=== PATIENT | female | born 1955 | race Caucasian/White ===

== ENCOUNTER → 2019-04-28 00:01 | Outpatient (BNVA) | payer MEDICARE, SELFPAY | PROVIDERS: Family Provider Nurse Practitioner Family; PCP Nurse Practitioner Family; Visit Provider Nurse Practitioner Family | DX: R05 Cough (principal); J40 Bronchitis, not specified as acute or chronic | CPT/HCPCS: 71046 ==

== ENCOUNTER 2019-12-28 09:25 | Outpatient (CLI) | payer MEDICARE, SELFPAY ==
--- NOTE | 2019-12-28 09:35 | XR_ITS ---
WS: [id number] CHEST 2 VIEWS HISTORY: pain on inspiration; fall on left side ribs; pain on left COMPARISON: 04/28/2019 Lungs: Minimal atelectasis at the lung bases. Lungs are hyperinflated. No pneumothorax. Cardiac size: Normal. Mediastinum/Aorta: Mild atherosclerosis aorta. Bones: Normal. XR/XR chest 2V* [id number] IMPRESSION: 1. Chronic emphysema with minimal bibasilar atelectasis. 2. No pneumothorax.
--- NOTE | 2019-12-28 09:35 | XR_ITS ---
WS: [id number] LEFT RIBS, MULTIPLE VIEWS HISTORY: left sided rib pain anterior and posteriorly COMPARISON: None available. Ribs: Suspect nondisplaced fracture involving the anterior lateral LEFT 10th rib. Lungs and mediastinum: Small amount of atelectasis at the LEFT lung base. Moderate degenerative changes at the LEFT glenohumeral joint. XR/XR ribs LT 2V* [id number] IMPRESSION: Nondisplaced LEFT anterolateral 10th rib fracture.
== END 2019-12-28 09:26 | disposition home or self-care (01) ==
PROVIDERS: Family Provider Nurse Practitioner Family; PCP Nurse Practitioner Family; Visit Provider Nurse Practitioner Family
DX: R07.81 Pleurodynia (principal); R07.1 Chest pain on breathing; S22.32XA Fracture of one rib, left side, initial encounter for closed fracture; W19.XXXA Unspecified fall, initial encounter
CPT/HCPCS: 71046; 71100

== ENCOUNTER 2022-08-17 09:31 | Inpatient (IN) | payer MEDICARE, SELFPAY ==
[2022-08-17] VITALS (8 sets, daily range): BP systolic 119–149; BP diastolic 66–79; PULSE 68–100; RESP 14–18; TEMP 36.6–36.8; O2SAT 92–99; BMI 26.2
--- NOTE | 2022-08-17 09:37 | XR_ITS ---
WS: [id number] XR hip RT 2-3V wo/w pel* [id number] REASON FOR EXAM: pain FINDINGS: Severe narrowing of the superior aspect of the joint space, essentially [id number]. Extensive subch ondral sclerosis and cystic change in the subarticular acetabulum and femoral head. Large osteophytes of the acetabulum and femoral head and neck junction. No definite acute or subacute fracture identified. No soft tissue abnormality. XR/XR hip RT 2-3V wo/w pel* [id number] IMPRESSION: Severe osteoarthritis with no definite acute or subacute fracture identified.
--- NOTE | 2022-08-17 09:44 | CT_ITS ---
WS: [id number] CT LUMBAR SPINE, noncontrast. HISTORY: Lumbar pain with L4-5 radiculopathy of the right leg TECHNIQUE: Contiguous 2.0 mm axial imaging are performed. Sagittal and coronal reformats are submitte d and reviewed. All CT scans at [facility] use at least one of these dose optimization techni ques: automated exposure control; mA and/or kV adjustment per patient size (includes targeted exams w here dose is matched to clinical indication); or iterative reconstruction. IV contrast: None DLP: 724.32 mGy.cm COMPARISON: None available. Mild LEFT curvature lumbar spine. 2 mm retrolisthesis of L4. No fracture. L1-2: Mild asymmetric disc bulging to the LEFT. LEFT foraminal disc protrusion. There is mild encroac hment upon the LEFT lateral thecal sac and the subarticular recesses bilaterally due to disc disease. Mild facet arthritis. Mild central and RIGHT foraminal stenosis. Moderate LEFT foraminal stenosis. L2-3: Moderate diffuse annular disc bulging with ligamentum flavum and facet arthritis. LEFT foramina l disc protrusion. Mild central stenosis. Moderate bilateral subarticular recess stenosis, LEFT great er than RIGHT. More significant encroachment upon the traversing LEFT L3 nerve root. Mild bilateral f oraminal stenosis and facet arthritis. L3-4: Diffuse annular disc bulging and osteophytic ridging. Moderate facet joint arthritis and ligame ntum flavum arthritis. Moderate central, bilateral subarticular recess and very mild foraminal narrow ing. L4-5: Marked diffuse annular disc bulging. Additional central and LEFT foraminal disc protrusions. Si gnificant encroachment upon the traversing L5 nerve roots. Severe facet joint arthritis with ligament um flavum hypertrophy. Severe central, bilateral subarticular recess and mild foraminal stenosis. Ext ruded component of the disc extending inferior to the disc level. L5-S1: Marked annular disc bulging and osteophytic ridging. Small central disc protrusion. Severe shelby tral, bilateral subarticular recess and mild foraminal stenosis. There is significant encroachment up on the S1 nerve roots bilaterally. Severe facet joint arthritis. Prior cholecystectomy. Atherosclerosis aorta. Mild SI joint arthritis. Subcentimeter, too small to ch aracterize low-attenuation mass in the medial RIGHT kidney. Hounsfield units are low suggesting cyst. CT/CT lumbar spine wo con* [id number] IMPRESSION: 1. Multilevel areas of central, subarticular recess and foraminal stenosis. 2. Severe central, bilateral subarticular recess and mild foraminal stenosis a t L4-5. Central and LEFT foraminal disc protrusions contribute to the stenosis, greatest involving the traversing L5 nerve roots. Central disc is extruded inf erior to the disc level. 3. Severe central, bilateral subarticular recess and mild foraminal stenosis a t L5-S1. Significant encroachment upon the S1 nerve roots. 4. Moderate central and bilateral subarticular recess stenosis at L3-4. 5. Mild central stenosis at L2-3 with a LEFT foraminal disc protrusion. Modera te bilateral subarticular recess encroachment, LEFT greater than RIGHT with enc roachment upon the L3 nerve roots. 6. LEFT foraminal disc protrusion at L1-2. Moderate LEFT foraminal stenosis wi th mild central and RIGHT foraminal stenosis at L1-2. 7. Facet joint arthritis most significant from L3-4 to L5-S1. 8. Prior cholecystectomy.
--- NOTE | 2022-08-17 09:45 | W.ED.FALL ---
HPI - Fall General: Chief Complaint: Fall Stated Complaint: right hip pain Time Seen by Provider: 08/17/22 09:37 Source: patient Mode of arrival: ambulatory History of Present Illness: 66-year-old female who presents to the emergency room with complaints of back pain with right leg radicular symptoms. She fell 2 months ago has had back pain with pain radiating to her right hip and leg since then is progressively worsened to the point now where she cannot stand or walk adequately. No previous MRIs of the back no previous surgeries. She does report urinary incontinence but no fecal incontinence. She fell 2 months ago while making the bed she got her foot caught and fell sideways she cannot recall she landed on the left or right side she denies striking her head there is no loss of consciousness. MD complaint: fall Onset (ago): month(s) (2) Fall from: standing Place fall occurred: home Loss of consciousness: None Prolonged down time: no Context: tripped/slipped Location of injury: back Associated symptoms-after fall: Denies abdominal pain, chest pain, confusion, difficulty walking, headache(s), hematuria, lightheadedness, neck pain, numbness, short of breath, vertigo or weakness Review of Systems Const: Denies: fever(s), chills, body aches, change in appetite, fatigue or malaise ENMT: Denies: throat pain, ear or mastoid pain, nasal discharge or nasal congestion Card: Denies: chest pain or lightheadedness Resp: Denies: dyspnea, productive cough or non-productive cough GI: Denies: abdominal pain : Reports: urinary incontinence; Denies: flank pain, dysuria, urinary frequency, urinary urgency or hematuria Musc: Reports: back pain; Denies: neck pain Skin/Breast: Denies: rash or pruritus Neuro: Denies: headache(s), difficulty walking, vertigo or confusion PFSH ED PFSH: Medical History Adult onset hypothyroidism Degeneration of intervertebral disc of lumbosacral region Fibromyalgia Hyperlipemia Multiple sclerosis Stress incontinence Vitamin D deficiency Surgical History History of cholecystectomy History of tubal ligation Family History Other Cancer Diabetes Social History Smoking and tobacco status: current every day smoker cigarettes Packs smoked per day: 0.5 Years cigarettes smoked: 25 Second hand smoke exposure: No Alcohol intake: never Substance/Drug Use: never Lives independently: Yes Household members: spouse Marital status: service: No Current occupational status: retired and disabled Current gender identity: Female Physical Exam Const: GENERAL APPEARANCE: cooperative and comfortable ORIENTATION/CONSCIOUSNESS: Yes awake, Yes oriented to person, Yes oriented to place and Yes oriented to time HENMT: COMMON NORMALS: normocephalic, atraumatic and hearing grossly normal bilaterally HEAD & SCALP: normocephalic and atraumatic Resp: COMMON NORMALS: normal respiratory effort, No retractions, No use of accessory muscles and clear to auscultation bilaterally AUSCULTATION: clear to auscultation bilaterally Cardio: COMMON NORMALS: regular rate, regular rhythm and No murmurs present (Cardio) RATE: regular rate RHYTHM: regular rhythm GI: COMMON NORMALS: Soft to palpation and No hepatosplenomegaly present AUSCULTATION: Yes normoactive bowel sounds PALPATION: Yes Soft to palpation, No Tenderness to palpation present (GI), No Guarding due to palpation present (GI) and Yes No hepatosplenomegaly present Back/Pelvis: OTHER: Straight leg raising is negative. Deep tendon reflex patellar tendon +104 on the right +2/4 on the left absent at the Achilles tendon on the right +104 on the left dorsum plantar flex strength in the right foot 5 of 5 Extremity: COMMON NORMALS: normal to inspection, capillary refill normal, no clubbing, cyanosis or edema, no calf tenderness and no pedal edema OTHER: Deep tendon reflexes plus Neuro: SENSORIUM/ORIENTATION: Yes oriented to person, Yes oriented to place and Yes oriented to time OTHER: Deep tendon reflexes +2/4 on the left 1/4 at the patellar tendon absent at the right Achilles tendon +1/4 at the left Achilles tendon straight leg raising negative sensation normal. Skin: COMMON NORMALS: no rashes or lesions noted GENERAL SKIN EXAM: no rashes or lesions noted Course Vital Signs: Vital signs: Vital Signs Temperature 98.3 F 08/17/22 09:34 Pulse Rate 80 08/17/22 13:07 Respiratory Rate 14 08/17/22 13:07 Blood Pressure 143/79 08/17/22 13:07 Pulse Oximetry 96 08/17/22 13:07 Oxygen Delivery Me thod Room Air 08/17/22 13:07 MDM - Fall Medical Decision Making Intractable back pain with right leg radiculopathy with loss of function in the right leg as well as loss of reflexes on the right compared to the left. Patient's pain improved with treatment but she still not able to walk safely. MRI shows L4-5 L5-S1 new annular tears with some impingement. Discussed with Dr. Sosa as well as at Dr. Angeles. At this point we will admit her for intractable back pain and consult Dr. Sosa tomorrow if she is not improving. He agreed he would see here if pain control is not adequate. Discussed Dr. Angeles orders written Medical Records I reviewed the patient's medical records. Lab Data I reviewed the patient's lab results. Radiology Impressions Hip/Pelvis X-Ray 08/17/22 09:37 IMPRESSION: Severe osteoarthritis with no definite acute or subacute fracture identified. Lumbar Spine CT 08/17/22 09:44 IMPRESSION: 1. Multilevel areas of central, subarticular recess and foraminal stenosis. 2. Severe central, bilateral subarticular recess and mild foraminal stenosis at L4-5. Central and LEFT foraminal disc protrusions contribute to the stenosis, greatest involving the traversing L5 nerve roots. Central disc is extruded inferior to the disc level. 3. Severe central, bilateral subarticular recess and mild foraminal stenosis at L5-S1. Significant encroachment upon the S1 nerve roots. 4. Moderate central and bilateral subarticular recess stenosis at L3-4. 5. Mild central stenosis at L2-3 with a LEFT foraminal disc protrusion. Moderate bilateral subarticular recess encroachment, LEFT greater than RIGHT with encroachment upon the L3 nerve roots. 6. LEFT foraminal disc protrusion at L1-2. Moderate LEFT foraminal stenosis with mild central and RIGHT foraminal stenosis at L1-2. 7. Facet joint arthritis most significant from L3-4 to L5-S1. 8. Prior cholecystectomy. Lumbar Spine MRI 08/17/22 11:26 IMPRESSION: 1. Mild lumbar curve. No acute compression. 2. Disc bulging worse L4-L5 and L5-S1 tiny annular fissures. Minimal caudal herniation of the L4-L5 disc. 3. Moderate to severe central canal stenosis L4-L5 due to disc bulging with facet arthropathy ligamentum flavum hypertrophy. Impingement traversing L5 nerve roots bilaterally. Mild to moderate LEFT L4-L5 foraminal narrowing. 4. Moderate central canal stenosis L5-S1 with impingement on traversing S1 nerve roots bilaterally. 5. Mild to moderate central canal stenosis L2-L3 and L3-L4 with narrowing of the subarticular recess bilaterally. 6. Moderate facet arthropathy L2-L3, L3-L4, L4-L5, and L5-S1. 7. Mild LEFT L1-L2, mild to moderate LEFT L2-L3 and mild RIGHT L3-L4 foraminal narrowing. Discharge Plan Discharge Patient Disposition: Admitted As Inpatient Clinical Impression: Back pain with right-sided radiculopathy Condition: Stable Coding Level of Care Code ED [employer] for [employer] [place]
[2022-08-17] MEDS: dexamethasone 10 mg/mL INJ IVP (10:07)
[2022-08-17] MEDS: orphenadrine 30 mg/mL Inj 2 mL 60 MG IVP (10:10)
[2022-08-17] MEDS: ketorolac 30 mg/mL INJ 15 MG IVP (10:10)
[2022-08-17] MEDS: morphine 4 mg/mL SDV 1 mL IVP (10:11)
--- NOTE | 2022-08-17 11:26 | MR_ITS ---
WS: [id number] MRI LUMBAR SPINE NONCONTRAST TECHNIQUE: Sagittal T1, T2 and STIR imaging. Axial T1 and T2 imaging. CLINICAL INFORMATION: loss of fnction R leg COMPARISON: MRI [address] earlier today FINDINGS: Mild lumbar curve. No acute compression. Tiny annular fissures L4-L5 and L5-S1. Slight anterolisthesi s L2 on L3 and L3 on L4. L1-L2: Mild annular bulging. Slight effacement of ventral thecal sac. Mild facet arthropathy. Mild LE FT foraminal narrowing. L2-L3: Slight anterolisthesis. Mild to moderate central canal stenosis with impingement on the subart icular recess bilaterally. Moderate facet arthropathy. Mild LEFT foraminal narrowing. Small LEFT fora carine protrusion. L3-L4: Slight anterolisthesis L3 on L4. Moderate central canal stenosis with slight impingement on tr aversing L4 nerve roots bilaterally. Moderate facet arthropathy. Tiny RIGHT proximal foraminal protru cheri with mild RIGHT foraminal narrowing. L4-L5: Disc bulging in combination with facet arthropathy results in moderate to severe central canal stenosis. Impingement on the traversing L5 nerve roots bilaterally. Small annular fissure at this le fer. Mild to moderate LEFT and no significant RIGHT foraminal narrowing L5-S1: Mild disc bulging with moderate central canal stenosis. Impingement traversing S1 nerve roots bilaterally. Small annular fissure. Moderate facet arthropathy. Foramen are patent. Visualized pelvic bony structures: Normal. Paravertebral soft tissues: Normal. Small bilateral renal cysts. MR/MR lumbar spine wo con* [id number] IMPRESSION: 1. Mild lumbar curve. No acute compression. 2. Disc bulging worse L4-L5 and L5-S1 tiny annular fissures. Minimal caudal he rniation of the L4-L5 disc. 3. Moderate to severe central canal stenosis L4-L5 due to disc bulging with fa cet arthropathy ligamentum flavum hypertrophy. Impingement traversing L5 nerve roots bilaterally. Mild to moderate LEFT L4-L5 foraminal narrowing. 4. Moderate central canal stenosis L5-S1 with impingement on traversing S1 ner ve roots bilaterally. 5. Mild to moderate central canal stenosis L2-L3 and L3-L4 with narrowing of t he subarticular recess bilaterally. 6. Moderate facet arthropathy L2-L3, L3-L4, L4-L5, and L5-S1. 7. Mild LEFT L1-L2, mild to moderate LEFT L2-L3 and mild RIGHT L3-L4 foramina l narrowing.
[2022-08-17] MEDS: HYDROmorphone 1 mg/mL INJ 1 mL IVP (16:36)
--- NOTE | 2022-08-17 16:54 | PM.HP ---
Providers/Chief Complaint Primary Care Provider: JACK Tillman Chief Complaint: right hip pain History of Present Illness Melodie Clancy is a 66 year old female who is seen spine surgeon in [place] Get in touch with [facility] spine surgeon, came to the hospital because of worsening of pain, patient is experiencing no change in her bladder control she is experiencing new incontinence, she does have intact sensations along medial side of her thighs, patient is stating that she has multiple sclerosis her left side is weaker than right however she is concerned that she will lose her strength and she want able to walk again. She has not noticed any falls recently, last fall was 2 months ago which was a mechanical fall. Mild lumbar curve. No acute compression. 2.? Disc bulging worse L4-L5 and L5-S1 tiny annular fissures. Minimal caudal herniation of the L4-L5 disc. 3.? Moderate to severe central canal stenosis L4-L5 due to disc bulging with facet arthropathy ligamentum flavum hypertrophy. Impingement traversing L5 nerve roots bilaterally. Mild to moderate LEFT L4-L5 foraminal narrowing. 4.? Moderate central canal stenosis L5-S1 with impingement on traversing S1 nerve roots bilaterally. 5.? Mild to moderate central canal stenosis L2-L3 and L3-L4 with narrowing of the subarticular recess bilaterally. 6.? Moderate facet arthropathy L2-L3, L3-L4, L4-L5, and L5-S1. 7.? Mild LEFT L1-L2,? mild to moderate LEFT L2-L3 and mild RIGHT L3-L4 foraminal narrowing Review of Systems Const: Denies: fever(s) Eyes: Denies: change in vision ENMT: Denies: throat pain Card: Denies: chest pain Resp: Denies: dyspnea GI: Denies: abdominal pain : Denies: flank pain Musc: Reports: back pain Skin/Breast: Denies: rash Neuro: Reports: numbness in extremities, weakness in extremities and frequent falls Medications/Allergies Home Medications Medication Instructions Recorded Confirmed Last Taken Type amlodipine 5 mg tablet 5 mg PO DAILY 04/28/19 08/17/22 08/17/22 History ibuprofen 800 mg tablet (IBU) 800 mg PO Q8H 04/28/19 08/17/22 08/17/22 History levothyroxine 100 mcg capsule 100 mcg PO DAILY 04/28/19 08/17/22 08/17/22 History multivitamin 1 tab PO QAM 04/28/19 08/17/22 08/17/22 History topiramate 50 mg tablet (Topamax) 50 mg PO BEDTIME 04/28/19 08/17/22 08/16/22 History venlafaxine 75 mg capsule,extended 150 mg PO QAM 12/27/19 08/17/22 08/17/22 History release 24 hr (Effexor XR) ascorbic acid (vitamin C) 500 mg 500 mg PO DAILY 08/17/22 08/17/22 08/17/22 History capsule,extended release (Vitamin C) cholecalciferol (vitamin D3) 25 25 mcg PO DAILY 08/17/22 08/17/22 08/17/22 History mcg (1,000 unit) tablet (Vitamin D3) cyanocobalamin (vitamin B-12) 250 250 mcg PO DAILY 08/17/22 08/17/22 08/17/22 History mcg tablet (Vitamin B-12) melatonin 5 mg tablet 5 mg PO BEDTIME 08/17/22 08/17/22 08/16/22 History Allergies Allergy/AdvReac Type Severity Reaction Status Date / Time Penicillins Allergy Unknown Verified 08/17/22 11:02 Sulfa (Sulfonamide Allergy Unknown Verified 08/17/22 11:02 Antibiotics) PFSH Acute PFSH: Medical History Adult onset hypothyroidism Degeneration of intervertebral disc of lumbosacral region Fibromyalgia Hyperlipemia Multiple sclerosis Stress incontinence Vitamin D deficiency Surgical History History of cholecystectomy History of tubal ligation Family History Other Cancer Diabetes Social History Smoking and tobacco status: current every day smoker cigarettes Packs smoked per day: 0.5 Years cigarettes smoked: 25 Second hand smoke exposure: No Alcohol intake: never Substance/Drug Use: never Lives independently: Yes Household members: spouse Marital status: service: No Current occupational status: retired and disabled Current gender identity: Female Vitals/I&O/Wt Last Vital Signs Temp 98.3 F 08/17/22 09:34 Pulse 95 08/17/22 16:52 Resp 16 08/17/22 16:52 BP 119/79 08/17/22 16:52 Pulse Ox 93 08/17/22 16:52 O2 Del Method Room Air 08/17/22 16:52 Weight last 48 hrs Weight 80.739 kg Physical Exam Narrative: Left side is weaker than right, history of multiple sclerosis Intact sensation medial side of her thighs Leg strength is 3/5 Upper extremity right side is stronger than left hand education liaison Awake and alert Anxious. S1, S2 Currently on room air Has nicotine patch on her right arm A&P Assessment and plan (1) Back pain with right-sided radiculopathy: (2) Rib pain on left side: (3) L4-L5 disc bulge: Plan Radiculopathy with disc bulging Degenerative joint disease Patient has been getting trigger point injections in [place] in her hip joint Currently experiencing excruciating back pain experiencing incontinence, does not have typical cauda equina symptoms, significant disc bulging L4-L5 L5-S1 noted Patient has been started on Decadron Opioids for pain management Bowel regimen added Patient will be full code Discontinue IV fluids as she will be able to eat today and tomorrow Dr. Sosa consulted who is not in town today however he will be back in town tomorrow and will see her Continue levothyroxine for her hypothyroidism History of multiple sclerosis: Patient has stopped taking multiple sclerosis medication she is only taking vitamin D Patient has quit smoking, this is her third day, she has been smoking half a pack a day, would use 14 mg nicotine patch If incontinence gets worse for palliative reason I might request [place] catheter around perioperative time DVT prophylaxis heparin tonight and then hold for intervention tomorrow . No preoperative cardiac clearance needed at this point Attestations Medical Necessity Statement*: Anticipating more than 2 midnight Diagnoses Back pain with right-sided radiculopathy M54.10 Rib pain on left side R07.81 L4-L5 disc bulge M51.36
[2022-08-17] MEDS: ibuprofen 800 mg tablet PO (18:25)
[2022-08-17] MEDS: sodium chloride 0.9% 1,000 ML 100 ML IV (18:25)
[2022-08-17] MEDS: dexamethasone 4 mg Tablet PO (20:11)
[2022-08-17] MEDS: topiramate 25 mg Tablet 50 MG PO (20:11)
[2022-08-18 00:05] VITALS: BP 123/69; PULSE 62; RESP 16; TEMP 37; O2SAT 94
[2022-08-18] MEDS: ibuprofen 800 mg tablet PO ×2 (01:44→11:20)
[2022-08-18 04:11] VITALS: BP 134/62; PULSE 61; RESP 18; TEMP 36.4; O2SAT 96
[2022-08-18 05:01] LABS: Anion Gap 17.7 (5-19); Blood Urea Nitrogen 14 mg/dL (8-23); C Reactive Protein 3.9 mg/L (0.0-4.9); Calcium 8.9 mg/dL (8.5-10.5); Carbon Dioxide 21 mmol/L (22-29); Chloride 107 mmol/L (98-107); Glucose 133 mg/dL (65-115); Magnesium 1.9 mg/dL (1.7-2.3); Osmolality Calculated 296 mOsm/kg (285-295); Potassium 3.7 mmol/L (3.5-5.1); Sodium 142 mmol/L (136-145)
[2022-08-18] MEDS: venlafaxine ER (24HR) 150 mg Capsule PO (05:31)
[2022-08-18 07:40] VITALS: BP 138/87; PULSE 66; RESP 15; TEMP 36.6; O2SAT 96
--- NOTE | 2022-08-18 07:49 | P.CONIM_ITS ---
Providers/Reason For Consult Consulting Physician/Specialty*: Orthospine Reason for Consult*: Back and right leg pain Attending Physician: Neetu Angeles MD Primary Care Provider: JACK Tillman History of Present Illness History of Present Illness Melodie Clancy is a 66 year old female who presented to [facility] emergency room with increased low back and right leg pain this been ongoing progressively intensifying over the last 2 months following a fall at her residence. She has been mobilizing without any problems until 2 days ago when the low back and right leg pain became significantly worse. She does suffer from multiple sclerosis and she has had left-sided weakness in both arm and leg regions. With the increased right lower extremity pain she has been concerned about further problems. She states that standing or walking gives her significant increase in her pain she ambulates with a cane and feels unstable. She reports equal back and right leg pain but as well right hip pain which radiates into the groin. Describes it as sharp stabbing in nature. She is attempted conservative management with light stretching exercises but is been difficult due to the level of pain she is experiencing she presented to the emergency room where she was admitted for definitive management orthopedics was consulted for her condition. She denies any loss of bowel or bladder control. She does report since her hospitalization she is feeling better as she was evaluated in room 252 bed 2. An extensive review of the patient's past medical history, surgical history, allergies, medications, family history, social history, and review of systems was completed Review of Systems Const: Denies: fever(s) Eyes: Denies: change in vision ENMT: Denies: throat pain Card: Denies: chest pain Resp: Denies: dyspnea GI: Denies: abdominal pain : Denies: flank pain Musc: Reports: back pain Skin/Breast: Denies: rash Neuro: Reports: numbness in extremities, weakness in extremities and frequent falls Medications/Allergies Home Medications Medication Instructions Recorded Confirmed Last Taken Type amlodipine 5 mg tablet 5 mg PO DAILY 04/28/19 08/17/22 08/17/22 History ibuprofen 800 mg tablet (IBU) 800 mg PO Q8H 04/28/19 08/17/22 08/17/22 History levothyroxine 100 mcg capsule 100 mcg PO DAILY 04/28/19 08/17/22 08/17/22 History multivitamin 1 tab PO QAM 04/28/19 08/17/22 08/17/22 History topiramate 50 mg tablet (Topamax) 50 mg PO BEDTIME 04/28/19 08/17/22 08/16/22 History venlafaxine 75 mg capsule,extended 150 mg PO QAM 12/27/19 08/17/22 08/17/22 History release 24 hr (Effexor XR) ascorbic acid (vitamin C) 500 mg 500 mg PO DAILY 08/17/22 08/17/22 08/17/22 History capsule,extended release (Vitamin C) cholecalciferol (vitamin D3) 25 25 mcg PO DAILY 08/17/22 08/17/22 08/17/22 History mcg (1,000 unit) tablet (Vitamin D3) cyanocobalamin (vitamin B-12) 250 250 mcg PO DAILY 08/17/22 08/17/22 08/17/22 H istory mcg tablet (Vitamin B-12) melatonin 5 mg tablet 5 mg PO BEDTIME 08/17/22 08/17/22 08/16/22 History Allergies Allergy/AdvReac Type Severity Reaction Status Date / Time Penicillins Allergy Unknown Verified 08/17/22 11:02 Sulfa (Sulfonamide Allergy Unknown Verified 08/17/22 11:02 Antibiotics) Current Medications Generic Name Dose Route Start Last Admin Trade Name Braydonq PRN Reason Stop Dose Admin Dexamethasone 4 mg 08/17/22 21:00 08/17/22 20:11 Dexamethasone 4 Mg Tablet PO 4 mg TID JESSIE Administration Sodium Chloride 1,000 mls @ 100 mls/hr 08/17/22 18:12 08/17/22 18:25 Sodium Chloride 0.9% IV 100 mls/hr .Q10H JESSIE Administration Ibuprofen 800 mg 08/17/22 18:30 08/18/22 01:44 Ibuprofen 800 Mg Tablet PO 800 mg Q8H JESSIE Administration Topiramate 50 mg 08/17/22 21:00 08/17/22 20:11 Topiramate 25 Mg Tablet PO 50 mg BEDTIME JESSIE Administration Venlafaxine HCl 150 mg 08/18/22 06:00 08/18/22 05:31 Venlafaxine Er (24hr) 150 Mg Capsule PO 150 mg QAM JESSIE Administration PFSH Acute PFSH: Medical History Adult onset hypothyroidism Degeneration of intervertebral disc of lumbosacral region Fibromyalgia Hyperlipemia Multiple sclerosis Stress incontinence Vitamin D deficiency Surgical History History of cholecystectomy History of tubal ligation Family History Other Cancer Diabetes Social History Smoking and tobacco status: current every day smoker cigarettes Packs smoked per day: 0.5 Years cigarettes smoked: 25 Second hand smoke exposure: No Alcohol intake: never Substance/Drug Use: never Lives independently: Yes Household members: spouse Marital status: service: No Current occupational status: retired and disabled Current gender identity: Female Vitals/I&O/Wt Last Vital Signs Temp 97.8 F 08/18/22 07:40 Pulse 66 08/18/22 07:40 Resp 15 08/18/22 07:40 BP 138/87 08/18/22 07:40 Pulse Ox 96 08/18/22 07:40 O2 Del Method Room Air 08/18/22 07:40 08/17/22 08/18/22 08/18/22 22:59 06:59 14:59 Intake Total 240 / 240 Balance 240 / 240 Weight last 48 hrs Weight 178 lb Weight 178 lb Physical Exam Narrative: She is alert and orient x3 she has good general appearance normal mood and affect. She was resting comfortably when entering ting the room. She has palpable pain over the low back left buttock region she has a mildly positive logroll on the right negative on the left. She has weakness in the left upper and lower extremity consistent with her previous reports from her multiple sclerosis. When asked to stand she does that gingerly with a walker supports she can raise up on her heels and toes. She has mildly positive straight leg raise on the right negative on the left. She does have positive logroll on the right. She has normal station light touch down both lower extremities at the thighs calves and feet. She is able to wiggle her toes she can dorsiflex and plantarflex it comfortably. Dorsalis pedis posterior pulses are palpable calves are supple no medial thigh tenderness. Reflexes are 1+ and about the right knee 1+ at the Achilles ankle reflex. Decreased at the left knee and ankle reflex. Skin is warm to the touch. Good cap refill all digits. HENMT: COMMON NORMALS: normocephalic and atraumatic HEAD & SCALP: normocephalic and atraumatic Resp: COMMON NORMALS: normal respiratory effort Cardio: COMMON NORMALS: regular rate and regular rhythm RATE: regular rate RHYTHM: regular rhythm GI: COMMON NORMALS: Soft to palpation and non-tender PALPATION: Yes Soft to palpation : COMMON NORMALS: Yes no CVA tenderness BLADDER/KIDNEY EXAM: Yes no CVA tenderness Back/Pelvis: COMMON NORMALS: no CVA tenderness Psych: COMMON NORMALS: mental status grossly normal and cooperative Data 08/18/22 04:04 MRI: Radiologist's impression: MR/MR lumbar spine wo con* [id number] IMPRESSION: ? 1.? Mild lumbar curve. No acute compression. 2.? Disc bulging worse L4-L5 and L5-S1 tiny annular fissures. Minimal caudal herniation of the L4-L5 disc. 3.? Moderate to severe central canal stenosis L4-L5 due to disc bulging with facet arthropathy ligamentum flavum hypertrophy. Impingement traversing L5 nerve roots bilaterally. Mild to moderate LEFT L4-L5 foraminal narrowing. 4.? Moderate central canal stenosis L5-S1 with impingement on traversing S1 nerve roots bilaterally. 5.? Mild to moderate central canal stenosis L2-L3 and L3-L4 with narrowing of the subarticular recess bilaterally. 6.? Moderate facet arthropathy L2-L3, L3-L4, L4-L5, and L5-S1. 7.? Mild LEFT L1-L2,? mild to moderate LEFT L2-L3 and mild RIGHT L3-L4 foraminal narrowing. ? A&P Assessment and plan (1) Spinal stenosis, lumbar region, with neurogenic claudication: Reviewed the MRI scan at length with the patient. Discussed treatment options which involve round of Decadron 10 mg IV to help reduce her acute flareup. Physical therapy for stabilization exercises. Also discussed treating her outpatient with injections at the pain clinic. Last option would be surgical intervention for lumbar decompression. She would like to avoid anything surgical at this time. From an orthopedic spine standpoint we will see her outpatient next week to set up physical therapy as well as injections at the pain clinic. More than 50% of the time spent with the patient today involved coordination of care, counseling and discussion of conservative versus surgical treatment options. Total amount of time spent with the patient was 35 minutes. (2) Herniated nucleus pulposus, L5-S1: Coding Level of Care Code Acute Code for Chg Fwd Diagnoses Spinal stenosis, lumbar region, with neurogenic claudication M48.062 Herniated nucleus pulposus, L5-S1 M51.27 Time Spent (min) 35
[2022-08-18 08:11] VITALS: RESP 18
[2022-08-18] MEDS: morphine 4 mg/mL SDV 1 mL IVP (08:11)
[2022-08-18] MEDS: amlodipine 5 mg Tablet PO (08:12)
[2022-08-18] MEDS: nicotine 14 mg Patch 1 PATCH TRANSDERMA (08:12)
[2022-08-18] MEDS: levothyroxine 100 mcg Tablet PO (08:12)
[2022-08-18] MEDS: sennosides-docusate Tablet 1 TAB PO (08:12)
[2022-08-18] MEDS: dexamethasone 4 mg Tablet PO (08:12)
[2022-08-18 09:10] VITALS: PULSE 68; RESP 16; O2SAT 95
--- NOTE | 2022-08-18 09:30 | PC.CHAP ---
Pastoral Care Encounter/Spiritual Assessment Type of Contact [] Declined optical store manager visit [] Patient/Family/Request visit [] Outpatient visit [] Follow-up visit [] Physician referral [] Code/Alert [x] Routine visit [] Staff referral [] Actively dying [] Patient sleeping [] Family support [] [] Out of room [] Palliative care [] [] Receiving care in room [] Pre-surgical visit [] Trauma [] Long length of stay [] ICU visit [] Other: Relational/Emotional Strength [x] Patient feels connected with others/family/visitors/staff [] Distress [] Loneliness/isolation [] Abandonment Spirituality of Patient [x] Person of Monica [] Attends Uatsdin of their Monica [x] Believes in Prayer [] Reads Bible or Samaritan materials [] There are Spiritual issues to be addressed Maintenance Service Technician Interventions [x] Prayer [] Active listening [] Non-anxious presence [x] Spiritual/emotional support [] Crisis/trauma care [] Spiritual counseling [] Bereavement support [] Provided bereavement packet [] Provided Bible/devotional materials [] Provided toy/stuffed animal, coloring book to patient or family member [] Provided Communion [] Anointing/[place] [] Salvation [x] Completed spiritual assessment [] Other: Impact on Illness or Injury [] Angry [] Fearful [] Anxious [] Often cries [] Exhaustion [] Unable to work [] Unable to attend moravian [] Unable to walk/stand [] Unable to read [] Unable to drive [] Unable to eat/drink [] Unable to sleep [] Unable to be with family [] Patient intubated [] Other: Summary Time spent with patient 5 min
--- NOTE | 2022-08-18 10:36 | PM.DCS ---
Discharge Providers Date of Admission: 08/17/22 17:09 Date of Discharge: August 18, 2022 Attending Provider at Admission: Neetu Angeles MD Attending Provider at Discharge: Neetu Angeles MD Primary Care Provider: JACK Tillman Diagnoses at Discharge Discharge Diagnosis (1) Spinal stenosis, lumbar region, with neurogenic claudication: Status: Acute (2) Herniated nucleus pulposus, L5-S1: Status: Acute Reason for Visit Reason for Visit: right hip pain Hospital Course Hospital Course 66-year-old female who presented to the hospital for worsening of her back pain she was seen spine surgeon in [place] however wants to establish care locally in [place], patient had an MRI which showed spinal stenosis lumbar region with neurogenic claudication patient was given option for nonsurgical intervention versus surgery. Patient opted for nonsurgical intervention at this point with trigger injection, use of opioids bowel regimen and possibly steroids. She also has hip osteoarthritis for which she will see Dr. Weston in the near future. I will give her opioids along bowel regimen, she will get a walker prescription as well Dr. Sosa's PA Mr. Santos has seen her during her hospitalization Physical Exam Narrative: Awake and alert Euvolemic S1, S2 Abdomen soft Doing well on room air Discharge Data Studies Completed and Pending Completed Studies During Hospitalization Category Date Time Status CT lumbar spine wo con* [id number] Stat Cat Scan 08/17/22 09:44 Completed XR hip RT 2-3V wo/w pel* [id number] Stat Exams 08/17/22 09:37 Completed MR lumbar spine wo con* [id number] Stat MRI 08/17/22 11:26 Completed Radiology Impressions Hip/Pelvis X-Ray 08/17/22 09:37 IMPRESSION: Severe osteoarthritis with no definite acute or subacute fracture identified. Lumbar Spine CT 08/17/22 09:44 IMPRESSION: 1. Multilevel areas of central, subarticular recess and foraminal stenosis. 2. Severe central, bilateral subarticular recess and mild foraminal stenosis at L4-5. Central and LEFT foraminal disc protrusions contribute to the stenosis, greatest involving the traversing L5 nerve roots. Central disc is extruded inferior to the disc level. 3. Severe central, bilateral subarticular recess and mild foraminal stenosis at L5-S1. Significant encroachment upon the S1 nerve roots. 4. Moderate central and bilateral subarticular recess stenosis at L3-4. 5. Mild central stenosis at L2-3 with a LEFT foraminal disc protrusion. Moderate bilateral subarticular recess encroachment, LEFT greater than RIGHT with encroachment upon the L3 nerve roots. 6. LEFT foraminal disc protrusion at L1-2. Moderate LEFT foraminal stenosis with mild central and RIGHT foraminal stenosis at L1-2. 7. Facet joint arthritis most significant from L3-4 to L5-S1. 8. Prior cholecystectomy. Lumbar Spine MRI 08/17/22 11:26 IMPRESSION: 1. Mild lumbar curve. No acute compression. 2. Disc bulging worse L4-L5 and L5-S1 tiny annular fissures. Minimal caudal herniation of the L4-L5 disc. 3. Moderate to severe central canal stenosis L4-L5 due to disc bulging with facet arthropathy ligamentum flavum hypertrophy. Impingement traversing L5 nerve roots bilaterally. Mild to moderate LEFT L4-L5 foraminal narrowing. 4. Moderate central canal stenosis L5-S1 with impingement on traversing S1 nerve roots bilaterally. 5. Mild to moderate central canal stenosis L2-L3 and L3-L4 with narrowing of the subarticular recess bilaterally. 6. Moderate facet arthropathy L2-L3, L3-L4, L4-L5, and L5-S1. 7. Mild LEFT L1-L2, mild to moderate LEFT L2-L3 and mild RIGHT L3-L4 foraminal narrowing. Laboratory Results Sodium 142 mmol/L (136-145) 08/18/22 04:04 Potassium 3.7 mmol/L (3.5-5.1) 08/18/22 04:04 Chloride 107 mmol/L (98-107) 08/18/22 04:04 Carbon Dioxide 21 mmol/L (22-29) L 08/18/22 04:04 Anion Gap 17.7 (5-19) 08/18/22 04:04 BUN 14 mg/dL (8-23) 08/18/22 04:04 Creatinine 0.6 mg/dL (0.5-0.9) 08/18/22 04:04 GFR Calculation 100.0 mL/min (90-130) 08/18/22 04:04 Glucose 133 mg/dL (65-115) H 08/18/22 04:04 Calculated Osmolality 296 mOsm/kg (285-295) H 08/18/22 04:04 Calcium 8.9 mg/dL (8.5-10.5) 08/18/22 04:04 Magnesium 1.9 mg/dL (1.7-2.3) 08/18/22 04:04 C-Reactive Protein 3.9 mg/L (0.0-4.9) 08/18/22 04:04 Vitals Last Vital Signs Temp 97.8 F 08/18/22 07:40 Pulse 68 08/18/22 09:10 Resp 16 08/18/22 09:10 BP 138/87 08/18/22 07:40 Pulse Ox 95 08/18/22 09:10 O2 Del Method Room Air 08/18/22 09:10 Discharge Plan Discharge Patient Disposition: Home Condition: Stable Prescriptions: New oxycodone-acetaminophen 5-325 mg tablet 1 tab PO Q8H PRN (Reason: pain) Qty: 20 0RF sennosides-docusate sodium [Senna-S] 8.6-50 mg tablet 1 tab-cap PO DAILY PRN (Reason: constipation) Qty: 30 0RF Continued topiramate [Topamax] 50 mg tablet 50 mg PO BEDTIME ibuprofen [IBU] 800 mg tablet 800 mg PO Q8H levothyroxine 100 mcg capsule 100 mcg PO DAILY multivitamin Tablet 1 tab PO QAM amlodipine 5 mg tablet 5 mg PO DAILY venlafaxine [Effexor XR] 75 mg capsule,extended release 24hr 150 mg PO QAM Vitamin B-12 250 mcg Tablet 250 mcg PO DAILY Vitamin C 500 mg Capsule, Extended Release 500 mg PO DAILY Vitamin D3 25 mcg (1,000 unit) Tablet 25 mcg PO DAILY melatonin 5 mg Tablet 5 mg PO BEDTIME Discharge Orders: Discharge Order (Routine); Ordered 08/18/22 Ordered By: Neetu Angeles Other Ambulatory Orders: DME: Walker (Order) Timeframe: 3 Months Location: None Selected Ordered By: Neetu Angeles Referrals: Lachelle Lozoya FNP [Primary Care Provider] - Discharge Diet: Advance as tolerated Discharge Activity: Limit activity as instructed Patient Instructions: Opioid Safety Activity Restrictions/Additional Instructions: Will need a walker continue weightbearing as tolerated be cautious with bending lifting or twisting. Physical therapy to give direction on nerve glides core strengthening. Have her follow-up in the office in 1 week's time to begin consultation at the pain clinic. No bending lifting or twisting activities. Thank you for [facility] for your care! The following is a list of instructions, from your provider, to follow upon your discharge to ensure you have the optimal recovery from your recent injury. Follow-up care is a allen part of your treatment and safety. Be sure to make and go to all appointments and call your doctor if you are having problems. If you do not already have a follow-up appointment made, call Dr. Sosa's] office in the next 1-3 days to make follow up appointment for 1 weeks at [phone]. It is also a good idea to know your test results and keep a list of the medicines you take. Medications will be prescribed for you at your provider's discretion. These medications are to be used as instructed; if they are taken more often that prescribed they will not be refilled early and in most cases will not be refilled at all. > When a refill is needed,you should contact [facility] 2-3 business days before your prescription runs out. Medications will NOT be refilled by manager workers compensation providers after hours! > Many pain medications contain Tylenol (Acetaminophen). Do not consume more than 4,000 mg of Tylenol per day in total with any combination ofmedications. > Pain medications can cause constipation. Please use an over the counter stool softener as directed, while taking pain medications. Consult your local pharmacist with questions or recommendations on stool softeners. If constipation persists, contact our office or your primary care provider. > While under our care, you are not to receive pain medications or other controlled substances from any other provider unless our office is notified and approves. Any attempts to do so will result in refusal to prescribe any further pain medications and possible dismissal from our practice. > ? Walking is essential for the healing process. We would like you to slowly advance your walking. This should be done on relatively flat clear ground (inside or out) or can be done on a treadmill. Remember this goal does not have to happen all at once, slowly increase your distance and duration. This can be broken into more more than one walk per day as tolerated. Patients who walk as directed after surgery rarely require Physical Therapy. In the unlikely event this issue arises your provider will direct hospital staff to make the appropriate arrangements. ? No lifting over 5 pounds {a gallon of milk) or bending/twisting until further notice. Each of these activities places an unnecessary amount of stress onto the body and can impede the delicate healing process. > Instead of bending at the waist, keep your back straight and bend at the knees. > Instead of twisting your torso, keep your back straight and turn your entire body with your feet. ? You may sleep in any position which makes you comfortable. Many patients find comfort sleeping in a reclining chair. It is not abnormal to have difficulty sleeping for the first several weeks following your surgery. We recommend trying Benadry! or Tylenol PM as directed to help with your sleeping difficulties. Both medications are over the counter and available without prescription. ? NO SMOKING!!! Smoking dramatically increases the probability of developing postoperative wound infections. ? Common complaints after lumbar injury include, but are not limited to: numbness and/or tingling in the legs, pain around the incision and surrounding tissues, muscle spasms, or stiffness of the middle to low back. Contact our office if these symptoms persist or if an acute change occurs. ? No driving for the first 3-5days, and not while taking narcotics until seen at your follow-up appointment and cleared. There are no restrictions for riding on short trips, however if you take a longer trip, arrangements should be made to make regular stops to get out of the vehicle and stretch . ? > Place ice over the lumbar site and surrounding tissue for twenty minutes, followed by applying a low/medium heat (heating pad) for an additional twenty minutes every 1-2 hours as needed for painrelief. > You may use of over the counter anti-inflammatory medications (Ibuprofen, Motrin, Aleve, Advil, etc) as directed on the package label. These types of medicines wm significantly reduce the amount of discomfort you experience after surgery from swelling. It should be noted that if you have and allergy to any of these medications, or a history of ulcers or kidney disease you should consult you primary care provider prior to starting these medications. Discharge Attestations Time Spent in Discharge Care*: greater than 30 min Quality Metrics Clinical Quality Measures [ No reported AMI, CVA or VTE this stay] Coding Level of Care Code Acute Code for Chg Fwd Diagnoses Spinal stenosis, lumbar region, with neurogenic claudication M48.062 Herniated nucleus pulposus, L5-S1 M51.27
--- NOTE | 2022-08-18 13:30 | PC.SOCIAL ---
SS Note Patient has walker order. CM to room to see patient and she is agreeable to HOME for equipment. Choice sheet completed and placed in chart. Faxed to HOME @ this time called and spoke to Ki @ [facility] and updated that patient will be picking up.
[2022-08-18 14:06] VITALS: BP 125/67; PULSE 68; RESP 16; O2SAT 95
== END 2022-08-18 14:08 | disposition home or self-care (01) | DRG 552 ==
LOC: ER 16:05 → MEDSURG 17:09
PROVIDERS: Admitting Provider Internal Medicine; Emergency Provider Family Medicine; PCP Nurse Practitioner Family; Visit Provider Internal Medicine
DX: M48.062 Spinal stenosis, lumbar region with neurogenic claudication (principal); M51.27 Other intervertebral disc displacement, lumbosacral region; M54.16 Radiculopathy, lumbar region; G35 Multiple sclerosis; R32 Unspecified urinary incontinence; E03.9 Hypothyroidism, unspecified; F17.210 Nicotine dependence, cigarettes, uncomplicated; Z91.81 History of falling
CPT/HCPCS: 36415; 51798; 72131; 72148; 73502; 80048; 83735; 86140; 96374; 96375; 99285; J1100; J1170; J1885; J2270; J2360; J7030; J8540

== ENCOUNTER 2022-08-22 09:43 | Emergency (ER) | payer MEDICARE, SELFPAY ==
[2022-08-22 09:53] VITALS: BP 175/82; PULSE 68; RESP 31; TEMP 36.8; O2SAT 95
--- NOTE | 2022-08-22 10:01 | XRR_ITS ---
PROCEDURE INFORMATION: Exam: XR Chest Exam date and time: 08/22/2022 10:05 AM Age: 66 years old Clinical indication: Cough and shortness of breath; Additional info: Dyspnea/cough TECHNIQUE: Imaging protocol: Radiologic exam of the chest. Views: 1 view. COMPARISON: CR XR chest 2V* [id number] 12/28/2019 9:42 AM FINDINGS: Lungs: Unremarkable. No consolidation. Pleural spaces: Unremarkable. No pleural effusion. No pneumothorax. Heart/Mediastinum: Unremarkable. No cardiomegaly. Bones/joints: Unremarkable for age. XR/XR chest 1V portable [id number] IMPRESSION: Negative chest exam.
--- NOTE | 2022-08-22 10:10 | W.ED.SOB ---
HPI - SOB/Dyspnea General: Chief Complaint: Shortness of Breath/Dyspnea Stated Complaint: SOB Time Seen by Provider: 08/22/22 09:57 Source: patient Mode of arrival: ambulatory History of Present Illness: HPI Narrative: 66-year-old female presents emergency room complaining of my lungs hurt she is tachypneic she does states she had some mildly productive cough of green sputum yesterday. She not had any fevers sweats or chills. She was hospitalized earlier this week with severe intractable back pain she had some mild disc bulges there was concern about nerve impingement she did have orthopedic spine evaluation at this time we are treating conservatively. She has no known history of DVT or PE is not on any anticoagulants. Pain does not radiate into her neck arm or back. MD elicited complaint: shortness of breath and chest pain Onset (ago): hour(s) Context: recent illness Timing: constant Severity: moderate Exacerbating factors: exertion and coughing Relieving factors: nothing Associated symptoms: Reports chest congestion, chest pain and extremity pain; Deny abdominal pain, cough, diaphoresis, dizziness, fever(s), hemoptysis, lightheadedness, myalgias, nausea, orthopnea, palpitations, paresthesias, polydipsia, polyuria, rash, sense of impending doom, syncope or vomiting Treatment prior to arrival: none Review of Systems Const: Denies: fever(s), chills, fatigue, malaise or diaphoresis Card: Reports: chest pain; Denies: palpitations, lightheadedness, syncope or orthopnea Resp: Reports: dyspnea, productive cough and chest congestion; Denies: hemoptysis GI: Denies: abdominal pain, nausea or vomiting : Denies: flank pain, difficulty voiding, dysuria, urinary frequency or urinary urgency Musc: Reports: back pain and extremity pain; Denies: neck pain Skin/Breast: Denies: rash or pruritus Neuro: Denies: dizziness Endo: Denies: polyuria or polydipsia PFSH ED PFSH: Medical History Adult onset hypothyroidism Back pain with right-sided radiculopathy Degeneration of intervertebral disc of lumbosacral region Fibromyalgia Herniated nucleus pulposus, L5-S1 Hyperlipemia L4-L5 disc bulge Multiple sclerosis Rib pain on left side Spinal stenosis, lumbar region, with neurogenic claudication Stress incontinence Vitamin D deficiency Surgical History History of cholecystectomy History of tubal ligation Family History Other Cancer Diabetes Social History Smoking and tobacco status: current every day smoker cigarettes Packs smoked per day: 0.5 Years cigarettes smoked: 25 Second hand smoke exposure: No Alcohol intake: never Substance/Drug Use: never Lives independently: Yes Household members: spouse Marital status: service: No Current occupational status: retired and disabled Current gender identity: Female Physical Exam Const: GENERAL APPEARANCE: cooperative and anxious ORIENTATION/CONSCIOUSNESS: Yes awake, Yes oriented to person, Yes oriented to place and Yes oriented to time HENMT: COMMON NORMALS: normocephalic, atraumatic and hearing grossly normal bilaterally HEAD & SCALP: normocephalic and atraumatic Resp: AUSCULTATION: rhonchi and wheezes Cardio: COMMON NORMALS: regular rate, regular rhythm and No murmurs present (Cardio) RATE: regular rate RHYTHM: regular rhythm GI: COMMON NORMALS: Soft to palpation and No hepatosplenomegaly present AUSCULTATION: Yes normoactive bowel sounds PALPATION: Yes Soft to palpation, No Tenderness to palpation present (GI), No Guarding due to palpation present (GI) and Yes No hepatosplenomegaly present Extremity: COMMON NORMALS: normal to inspection, capillary refill normal, no clubbing, cyanosis or edema, no calf tenderness and no pedal edema Neuro: SENSORIUM/ORIENTATION: Yes oriented to person, Yes oriented to place and Yes oriented to time Skin: COMMON NORMALS: no rashes or lesions noted GENERAL SKIN EXAM: no rashes or lesions noted Course Vital Signs: Vital signs: Vital Signs Temperature 98.3 F 08/22/22 09:53 Pulse Rate 69 08/22/22 11:41 Respiratory Rate 18 08/22/22 11:41 Blood Pressure 124/74 08/22/22 11:41 Pulse Oximetry 91 08/22/22 11:41 Oxygen Delivery Me thod Room Air 08/22/22 09:53 MDM - SOB/Dyspnea Medical Decision Making D-dimer is negative EKGs reviewed as on the chart no acute ST elevation. Patient is no longer having any further chest pain. Chest x-ray does not show any acute infiltrates pneumothorax or masses. Her symptoms have resolved. We will discharge her home treated for bronchitis albuterol doxycycline steroid taper follow-up with primary care doctor return if worsens or changes. Medical Records I reviewed the patient's medical records. Lab Data I reviewed the patient's lab results. 08/22/22 10:39 08/22/22 10:39 Labs/Radiology: Radiology Impressions Chest X-Ray 08/22/22 10:01 IMPRESSION: Negative chest exam. Laboratory Results WBC 10.2 10^3/uL (4.0-10.0) H 08/22/22 10:39 RBC 3.68 10^6/uL (4.1-5.3) L 08/22/22 10:39 Hgb 12.9 g/dL (11.5-15.3) 08/22/22 10:39 Hct 39.4 % (37.0-47.0) 08/22/22 10:39 MCV 107.1 fl (81-99) H 08/22/22 10:39 MCH 35.1 pg (28.0-34.0) H 08/22/22 10:39 MCHC 32.7 g/dL (30.0-36.0) 08/22/22 10:39 RDW 19.0 % (12.1-15.1) H 08/22/22 10:39 Plt Count 286 10^3/cmm (130-400) 08/22/22 10:39 MPV 10.8 fL (7.4-10.4) H 08/22/22 10:39 Neut % (Auto) 76.1 % 08/22/22 10:39 Lymph % (Auto) 10.1 % 08/22/22 10:39 Bracken % (Auto) 6.0 % 08/22/22 10:39 Eos % (Auto) 6.7 % 08/22/22 10:39 Baso % (Auto) 0.7 % 08/22/22 10:39 Neut # (Auto) 7.74 10^3/uL (1.8-7.7) H 08/22/22 10:39 Lymph # (Auto) 1.0 10^3/uL (0.8-4.8) 08/22/22 10:39 Bracken # (Auto) 0.6 10^3/uL (0.2-0.9) 08/22/22 10:39 Eos # (Auto) 0.7 10^3/uL (0.0-0.8) 08/22/22 10:39 Baso # (Auto) 0.1 10^3/uL (0.0-0.1) 08/22/22 10:39 Nucleated RBC % (auto) 0.2 % 08/22/22 10:39 Nucleated RBCs # 0.0 /100WBC 08/22/22 10:39 D-Dimer 0.44 ug/mIFEU (0-0.59) 08/22/22 10:39 Specimen Type Arterial 08/22/22 10:15 Sample Site Brachial, left 08/22/22 10:15 ABG pH 7.46 (7.35-7.45) H 08/22/22 10:15 ABG pCO2 29.1 mmHg (35-45) L 08/22/22 10:15 ABG pO2 57.8 mmHg (80.0-100.0) L 08/22/22 10:15 ABG HCO3 20.9 mmol/L (22-26) L 08/22/22 10:15 ABG O2 Saturation 92.7 08/22/22 10:15 ABG Base Excess -1.9 mmol/L (-2.0-2.0) 08/22/22 10:15 Ari Test N/a 08/22/22 10:15 A-a O2 Gradient 7.1 mmHg (5-10) 08/22/22 10:15 Hematocrit 39.3 % (37-47) 08/22/22 10:15 Hgb O2 Saturation 90.9 % (95-100) L 08/22/22 10:15 Carboxyhemoglobin 1.5 %THgb (0.4-20.1) 08/22/22 10:15 Methemoglobin 0.4 % (0.4-1.5) 08/22/22 10:15 Total Hemoglobin 12.8 g/dL (12-16) 08/22/22 10:15 Sodium 142.0 mmol/L (131-143) 08/22/22 10:15 Potassium 3.3 mmol/L (3.5-5.0) L 08/22/22 10:15 Glucose 133.0 mg/dL (70-115) H 08/22/22 10:15 Ionized Calcium 1.2 mmol/L (1.1-1.4) 08/22/22 10:15 O2 Delivery Device Room air 08/22/22 10:15 FiO2 21.0 % 08/22/22 10:15 Medical Or Surgical Instrument Maker ID Amh 08/22/22 10:15 Sodium 140 mmol/L (136-145) 08/22/22 10:39 Potassium 3.3 mmol/L (3.5-5.1) L 08/22/22 10:39 Chloride 104 mmol/L (98-107) 08/22/22 10:39 Carbon Dioxide 23 mmol/L (22-29) 08/22/22 10:39 Anion Gap 16.3 (5-19) 08/22/22 10:39 BUN 10 mg/dL (8-23) 08/22/22 10:39 Creatinine 0.8 mg/dL (0.5-0.9) 08/22/22 10:39 GFR Calculation 71.8 mL/min (90-130) L 08/22/22 10:39 Glucose 109 mg/dL (65-115) 08/22/22 10:39 Calculated Osmolality 290 mOsm/kg (285-295) 08/22/22 10:39 Calcium 9.1 mg/dL (8.5-10.5) 08/22/22 10:39 Total Bilirubin 0.4 mg/dL (0.15-1.2) 08/22/22 10:39 AST 44 U/L (0-32) H 08/22/22 10:39 ALT 57 U/L (0-33) H 08/22/22 10:39 Alkaline Phosphatase 76 U/L (35-105) 08/22/22 10:39 Troponin T Baseline 7 ng/L (0-10) 08/22/22 10:39 Troponin T 120 Minute 6.34 ng/L (0-10) 08/22/22 12:20 Delta Troponin T -0.66 ABS# (0-10) L 08/22/22 12:20 Total Protein 6.8 g/dL (6.6-8.7) 08/22/22 10:39 Albumin 4.6 g/dL (3.5-5.2) 08/22/22 10:39 Globulin 2.2 g/dL (1.3-4.6) 08/22/22 10:39 Urine Color Dark yellow (Yellow) 08/22/22 11:36 Urine Appearance Clear (CLEAR) 08/22/22 11:36 Urine pH 5 (5-7) 08/22/22 11:36 Ur Specific [place] 1.020 (1.005-1.030) 08/22/22 11:36 Urine Protein Neg (Negative) 08/22/22 11:36 Urine Glucose (UA) Norm (Normal) 08/22/22 11:36 Urine Ketones Negative (Negative) 08/22/22 11:36 Urine Blood Neg (Negative) 08/22/22 11:36 Urine Nitrate Negative (Negative) 08/22/22 11:36 Urine Bilirubin Neg (Negative) 08/22/22 11:36 Urine Urobilinogen Norm mg/dL (Negative) 08/22/22 11:36 Ur Leukocyte Esterase Negative (Negative) 08/22/22 11:36 Discharge Plan Discharge Patient Disposition: Home Clinical Impression: Bronchitis Condition: Stable Prescriptions: New doxycycline hyclate 100 mg capsule 100 mg PO BID 10 Days Qty: 20 0RF prednisone 20 mg tablet 20 mg PO TID Qty: 15 0RF Rx Instructions: 1 p.o. 3 times daily x3 days, 1 p.o. twice daily x2 days, 1 p.o. daily x2 days albuterol sulfate 90 mcg/actuation HFA aerosol inhaler 2 inh INHALATION Q4H PRN (Reason: shortness of breath or wheezing) Qty: 18 0RF No Action topiramate [Topamax] 50 mg tablet 50 mg PO BEDTIME ibuprofen [IBU] 800 mg tablet 800 mg PO Q8H levothyroxine 100 mcg capsule 100 mcg PO DAILY multivitamin Tablet 1 tab PO QAM amlodipine 5 mg tablet 5 mg PO DAILY venlafaxine [Effexor XR] 75 mg capsule,extended release 24hr 150 mg PO QAM Vitamin B-12 250 mcg Tablet 250 mcg PO DAILY Vitamin C 500 mg Capsule, Extended Release 500 mg PO DAILY Vitamin D3 25 mcg (1,000 unit) Tablet 25 mcg PO DAILY melatonin 5 mg Tablet 5 mg PO BEDTIME oxycodone-acetaminophen 5-325 mg tablet 1 tab PO Q8H PRN (Reason: pain) Qty: 20 0RF Senna-S 8.6-50 mg tablet 1 tab-cap PO DAILY PRN (Reason: constipation) Qty: 30 0RF Discharge Orders: Discharge ED (Routine); Ordered 08/22/22 Ordered By: Julio Hilario Referrals: Lachelle Lozoya, VALIDATION ENGINEER [Primary Care Provider] - Discharge Diet: Usual diet Discharge Activity: Increase activity as tolerated Patient Instructions: Opioid Safety, Pain Management Activity Restrictions/Additional Instructions: You are seen today for chest pain D-dimer cardiac enzymes and EKG did not show any acute changes. Chest x-ray did not show any acute infiltrates or or pneumonia. Your symptoms improved with the pain medications given we will treat you with a course of doxycycline prednisone and albuterol. Return to your primary care doctor if not improving. Coding Level of Care Code ED Project Scheduler for [place]
--- NOTE | 2022-08-22 10:16 | ECG_ITS ---
[facility] Test Date: 2022-08-22 Pat Name: Melodie Clancy Department: Room: Gender: Female Actuarial Clerk: : 1955 Requested By: Julio Mcmillan Order Number: [id number] Reading MD: Sky Rubin M.D. Measurements Intervals [place] Rate: 71 P: 56 AL: 161 QRS: 74 QRSD: 86 T: 74 QT: 374 QTc: 406 Interpretive Statements SINUS RHYTHM NONSPECIFIC ST & T-WAVE ABNORMALITY Compared to ECG 06/06/2017 05:24:28 No significant changes Electronically Signed On 08-23-2022 10:16:24 CDT by Sky Rubin M.D. [email or web address]
[2022-08-22 10:27] LABS: ABG PCO2 29.1 mmHg (35-45); ABG PH Result 7.46 (7.35-7.45); Alveolar-Arterial Oxygen Gradi 7.1 mmHg (5-10); Arterial Blood Gas Hematocrit 39.3 % (37-47); Base Excess ABG -1.9 mmol/L (-2.0-2.0); Blood Gas Operator Identificat AMH; Blood Gas Sample Site Brachial, left; Blood Gas Sample Type Arterial; Carboxyhemoglobin 1.5 %THgb (0.4-20.1); HCO3 ABG 20.9 mmol/L (22-26); HGB O2 Sat 90.9 % (95-100); Ionized Calcium Level - ABG 1.2 mmol/L (1.1-1.4); Methemoglobin 0.4 % (0.4-1.5); Oxygen Device ROOM AIR; Oxygen Saturation ABG 92.7; PO2 ABG 57.8 mmHg (80.0-100.0); Potassium Level - ABG 3.3 mmol/L (3.5-5.0); Total Hemoglobin 12.8 g/dL (12-16)
[2022-08-22 10:51] LABS: Basophils # 0.1 10^3/uL (0.0-0.1); Basophils % 0.7 %; Eosinophils # 0.7 10^3/uL (0.0-0.8); Eosinophils % 6.7 %; Hematocrit 39.4 % (37.0-47.0); Hemoglobin 12.9 g/dL (11.5-15.3); Lymphocytes % 10.1 %; Mean Corpuscular HGB Conc 32.7 g/dL (30.0-36.0); Mean Corpuscular Hemoglobin 35.1 pg (28.0-34.0); Mean Corpuscular Volume 107.1 fl (81-99); Mean Platelet Volume 10.8 fL (7.4-10.4); Monocytes # 0.6 10^3/uL (0.2-0.9); Neutrophils # 7.74 10^3/uL (1.8-7.7); Neutrophils % 76.1 %; Nucleated Red Blood Cells % 0.2 %; Platelet Count 286 10^3/cmm (130-400); Red Blood Count 3.68 10^6/uL (4.1-5.3); White Blood Count 10.2 10^3/uL (4.0-10.0)
[2022-08-22 11:07] LABS: D Dimer 0.44 ug/mIFEU (0-0.59)
[2022-08-22 11:09] LABS: Alanine Aminotransferase 57 U/L (0-33); Albumin Level 4.6 g/dL (3.5-5.2); Alkaline Phosphatase 76 U/L (35-105); Anion Gap 16.3 (5-19); Aspartate Amino Transferase 44 U/L (0-32); Blood Urea Nitrogen 10 mg/dL (8-23); Calcium 9.1 mg/dL (8.5-10.5); Carbon Dioxide 23 mmol/L (22-29); Chloride 104 mmol/L (98-107); Globulin 2.2 g/dL (1.3-4.6); Glomerular Filtration Rate 71.8 mL/min (90-130); Glucose 109 mg/dL (65-115); Osmolality Calculated 290 mOsm/kg (285-295); Potassium 3.3 mmol/L (3.5-5.1); Sodium 140 mmol/L (136-145); Total Bilirubin 0.4 mg/dL (0.15-1.2); Total Protein 6.8 g/dL (6.6-8.7)
[2022-08-22 11:11] LABS: Troponin(5th) Baseline 7 ng/L (0-10)
[2022-08-22 11:13] VITALS: BP 140/74; PULSE 70; RESP 36; O2SAT 92
[2022-08-22 11:28] VITALS: RESP 14
[2022-08-22] MEDS: morphine 4 mg/mL SDV 1 mL IVP (11:28)
[2022-08-22 11:41] VITALS: BP 124/74; PULSE 69; RESP 18; O2SAT 91
[2022-08-22 11:43] LABS: Add Urine Microscopic? NO; Charge for UA Resulting for Rev
[2022-08-22 12:01] LABS: Urine Appearance Clear (CLEAR); Urine Color Dark Yellow (Yellow); pH Urine 5 (5-7)
[2022-08-22 12:02] LABS: Bilirubin Urine Neg (Negative); Blood Urine Neg (Negative); Glucose Urine UA Norm (Normal); Ketones Urine Negative (Negative); Leukocyte Esterase Urine Negative (Negative); Nitrate Urine Negative (Negative); Protein Urine Neg (Negative); Urobilinogen Urine Norm (Negative)
--- NOTE | 2022-08-22 12:30 | ECG_ITS ---
[facility] Test Date: 2022-08-22 Pat Name: Melodie Clancy Department: Room: Gender: Female Napper Tender: : 1955 Requested By: Julio Mcmillan Order Number: [id number] Chris MD: Sky Rubin M.D. Measurements Intervals [place] Rate: 63 P: 46 VA: 164 QRS: 62 QRSD: 89 T: 65 QT: 409 QTc: 420 Interpretive Statements SINUS RHYTHM NONSPECIFIC ST & T-WAVE ABNORMALITY Compared to ECG 08/22/2022 10:16:17 No significant changes Electronically Signed On 08-23-2022 10:27:36 CDT by Sky Rubin M.D. [email or web address]
[2022-08-22 12:50] LABS: Troponin 5 2HR 6.34 ng/L (0-10)
[2022-08-22 13:18] LABS: Troponin 5 2HR Delta -0.66 ABS# (0-10)
== END 2022-08-22 13:49 | disposition home or self-care (01) ==
PROVIDERS: Emergency Provider Family Medicine; PCP Nurse Practitioner Family
DX: J40 Bronchitis, not specified as acute or chronic (principal); E78.5 Hyperlipidemia, unspecified; G35 Multiple sclerosis; F17.210 Nicotine dependence, cigarettes, uncomplicated
CPT/HCPCS: 36415; 36600; 71045; 80051; 80053; 81003; 82330; 82805; 84484; 85025; 85378; 87040; 93005; 96374; 99285; J2270

== ENCOUNTER → 2022-08-25 09:39 | Outpatient (BNVA) | payer MEDICARE, SELFPAY | PROVIDERS: PCP Nurse Practitioner Family; Visit Provider Physician Assistant | DX: M54.50 Low back pain, unspecified (principal); M16.11 Unilateral primary osteoarthritis, right hip; M48.061 Spinal stenosis, lumbar region without neurogenic claudication | CPT/HCPCS: 72110; 99213 ==

== ENCOUNTER → 2022-08-31 14:52 | Outpatient (BNVA) | payer MEDICARE, SELFPAY | PROVIDERS: PCP Nurse Practitioner Family; Referring Provider Dermatology; Visit Provider Student in an Organized Health Care Education/Training Program | DX: M16.11 Unilateral primary osteoarthritis, right hip (principal); Z01.818 Encounter for other preprocedural examination | CPT/HCPCS: 73502; 80053; 85025; 99204 ==

== ENCOUNTER → 2022-09-02 11:45 | Outpatient (BNVA) | payer MEDICARE, SELFPAY | PROVIDERS: PCP Nurse Practitioner Family; Visit Provider Nurse Practitioner Family | DX: E55.9 Vitamin D deficiency, unspecified (principal); R73.9 Hyperglycemia, unspecified; Z13.6 Encounter for screening for cardiovascular disorders; E03.8 Other specified hypothyroidism; M16.11 Unilateral primary osteoarthritis, right hip | CPT/HCPCS: 80061; 82306; 82607; 83036; 83735; 84443 ==

== ENCOUNTER → 2022-09-15 10:00 | Outpatient (BNVA) | payer MEDICARE, SELFPAY | PROVIDERS: PCP Nurse Practitioner Family; Visit Provider Clinical Nurse Specialist Adult Health | DX: Z01.818 Encounter for other preprocedural examination (principal); M16.11 Unilateral primary osteoarthritis, right hip; J44.9 Chronic obstructive pulmonary disease, unspecified; G35 Multiple sclerosis | CPT/HCPCS: 81000 ==

== ENCOUNTER → 2022-09-23 06:00 | Day surgery (SDC) | payer MEDICARE, SELFPAY ==
--- NOTE | 2022-09-11 14:46 | ANES.PREANE2 ---
Pre-Anesthetic Assessment Height/Weight: Height 1.75 m Weight 80.739 kg Operation Date: 09/23/22 07:00 Proposed Procedures p right total hip arthroplasty:56788, M16.11(Right) - Matthew Weston DO Familial anesthetic complications: none Was Beta Alyce taken within 24 hours: N/A Was Clonidine taken within 24 hours: N/A Social No alcohol and No tobacco (h/o smoking) Exam alert, oriented x 3, clear to auscultation bilaterally and regular rate & rhythm Airway Submandibular: within normal limits Cervical ROM: within normal limits Mallampati: Class II Dentition: false Pulmonary Chronic Obstructive Pulmonary Disease CV/HEM Hypertension Metabolic Thyroid Disease [facility] Osteoarthritis/DJD Anesthetic Plan ASA status: 3 Anesthesia: Regional (specify below) (SAB) Medications/Allergies Home Medications Medication Instructions Recorded Confirmed Last Taken Type amlodipine 5 mg tablet 5 mg PO DAILY 04/28/19 09/11/22 09/10/22 History multivitamin 1 tab PO QAM 04/28/19 09/11/22 09/11/22 History topiramate 50 mg tablet (Topamax) 100 mg PO BEDTIME 04/28/19 09/11/22 09/11/22 History venlafaxine 75 mg capsule,extended 150 mg PO QAM 12/27/19 09/11/22 09/11/22 History release 24 hr (Effexor XR) ascorbic acid (vitamin C) 500 mg 500 mg PO DAILY 08/17/22 09/11/22 09/11/22 History capsule,extended release (Vitamin C) cholecalciferol (vitamin D3) 25 25 mcg PO DAILY 08/17/22 09/11/22 09/11/22 History mcg (1,000 unit) tablet (Vitamin D3) cyanocobalamin (vitamin B-12) 250 250 mcg PO DAILY 08/17/22 09/11/22 09/11/22 History mcg tablet (Vitamin B-12) melatonin 5 mg tablet 5 mg PO BEDTIME 08/17/22 09/11/22 09/10/22 History sennosides 8.6 mg-docusate sodium 1 tab-cap PO DAILY PRN 08/18/22 09/11/22 09/07/22 Rx 50 mg tablet (Senna-S) constipation #30 tabs albuterol sulfate 90 mcg/actuation 2 inh inhalation Q4H PRN shortness 08/22/22 09/11/22 Unknown Rx aerosol inhaler of breath or wheezing #18 grams tramadol 50 mg tablet 50 mg PO Q8H PRN pain 7 days #21 08/31/22 09/11/22 09/11/22 Rx tabs diclofenac sodium 75 mg 75 mg PO BID PRN pain #60 tabs 09/02/22 09/11/22 09/11/22 Rx tablet,delayed release levothyroxine 112 mcg tablet 112 mcg PO DAILY 09/02/22 09/11/22 09/11/22 History Allergies Allergy/AdvReac Type Severity Reaction Status Date / Time Penicillins Allergy ALGY-Rash Verified 09/11/22 07:55 Sulfa (Sulfonamide Allergy ALGY-Rash Verified 09/11/22 07:55 Antibiotics) [facility] Anesthesia Medical History (Updated 09/02/22 @ 10:33 by JACK Tillman) Adult onset hypothyroidism Back pain with right-sided radiculopathy Degeneration of intervertebral disc of lumbosacral region Fibromyalgia Herniated nucleus pulposus, L5-S1 Hyperlipemia L4-L5 disc bulge Multiple sclerosis Rib pain on left side Spinal stenosis, lumbar region, with neurogenic claudication Stress incontinence Vitamin D deficiency Surgical History History of cholecystectomy History of tubal ligation Family History Other Cancer Diabetes Social History (Updated 09/02/22 @ 10:07 by Diane Lemus) Smoking and tobacco status: former smoker Quit status (tobacco): has quit using tobacco Year quit tobacco: 08/17/22 Second hand smoke exposure: No Alcohol intake: never Substance/Drug Use: never Lives independently: Yes Household members: spouse Marital status: service: No Current occupational status: retired and disabled Current gender identity: Female Data Anesthesia Cardiac Studies: No Data to Display
== END ==
PROVIDERS: PCP Nurse Practitioner Family; Visit Provider Student in an Organized Health Care Education/Training Program
DX: Z01.818 Encounter for other preprocedural examination (principal); M16.11 Unilateral primary osteoarthritis, right hip; J44.9 Chronic obstructive pulmonary disease, unspecified; I10 Essential (primary) hypertension; E03.9 Hypothyroidism, unspecified; Z87.891 Personal history of nicotine dependence

== ENCOUNTER 2022-09-25 16:08 | Outpatient (CLI) | payer MEDICARE, SELFPAY ==
--- NOTE | 2022-09-25 17:00 | CT_ITS ---
WS: [id number] CT RIGHT HIP, NONCONTRAST TECHNIQUE: Noncontrast CT of the RIGHT hip to include the RIGHT knee CLINICAL INFORMATION: pre planning COMPARISON: None. DLP: 849.[address] scans at [facility] use at least one of these dose optimization techniques: automated e xposure control; mA and/or kV adjustment per patient size (includes targeted exams where dose is matc hed to clinical indication); or iterative reconstruction. FINDINGS: Advanced osteoarthritis RIGHT hip with [id number]-onof articulation. Hypertrophic changes about the acet abulum with sclerosis. Extensive hypertrophic changes involving the femoral head extending to the fem oral neck. Subchondral cystic change involving the femoral head. Mild degenerative narrowing LEFT hip . Pubic rami appear intact. Pelvic phleboliths. Vascular calcification. Advanced facet arthropathy lo wer lumbar spine. Sigmoid diverticulosis. CT/CT hip RT wo con* [id number] IMPRESSION: Images obtained for preoperative purposes.
== END 2022-09-25 16:09 | disposition home or self-care (01) ==
LOC: RAD 16:13
PROVIDERS: PCP Nurse Practitioner Family; Visit Provider Student in an Organized Health Care Education/Training Program
DX: M16.11 Unilateral primary osteoarthritis, right hip (principal); K57.30 Diverticulosis of large intestine without perforation or abscess without bleeding
CPT/HCPCS: 73700

== ENCOUNTER 2022-10-14 10:22 | Inpatient (IN) | payer MEDICARE, SELFPAY ==
[2022-10-13 08:25] VITALS: BMI 26.6
[2022-10-14] VITALS (15 sets, daily range): BP systolic 99–143; BP diastolic 46–84; PULSE 65–96; RESP 15–18; TEMP 36.4–36.8; O2SAT 90–95
[2022-10-14 06:25] LABS: Bilirubin Urine 1+ (Negative); Blood Urine Neg (Negative); Glucose Urine UA Norm (Normal); Ketones Urine 1+ (Negative); Leukocyte Esterase Urine Negative (Negative); Nitrate Urine Negative (Negative); Protein Urine Trace (Negative); Specific Gravity, Urine 1.025 (1.005-1.030); Urine Appearance Cloudy (CLEAR); Urine Color Dark Yellow (Yellow); Urobilinogen Urine 1 mg/dL (Negative); pH Urine 5 (5-7)
[2022-10-14 06:26] LABS: Add Urine Microscopic? YES
[2022-10-14 06:27] LABS: Add Urine Culture? No; Bacteria Urine 1+ /hpf; Mucus Urine 3+ /hpf; Squamous Epithelial Cell Urine 15-25 /hpf (0-5)
[2022-10-14] MEDS: acetaminophen 1,000 MG/100 ML PIGGYBACK 400 MG IV ×3 (06:29→22:43)
[2022-10-14] MEDS: ketorolac 30 mg/mL INJ IVP (06:29)
[2022-10-14] MEDS: sodium chloride 0.9% 1,000 ML 30 ML IV (06:33)
[2022-10-14 06:35] LABS: Basophils # 0.2 10^3/uL (0.0-0.1); Basophils % 2.3 %; Eosinophils # 0.7 10^3/uL (0.0-0.8); Eosinophils % 9.9 %; Hematocrit 38.5 % (37.0-47.0); Hemoglobin 12.4 g/dL (11.5-15.3); Lymphocytes # 1.6 10^3/uL (0.8-4.8); Lymphocytes % 22.9 %; Mean Corpuscular HGB Conc 32.2 g/dL (30.0-36.0); Mean Corpuscular Hemoglobin 34.5 pg (28.0-34.0); Mean Corpuscular Volume 107.2 fl (81-99); Mean Platelet Volume 11.4 fL (7.4-10.4); Monocytes # 0.6 10^3/uL (0.2-0.9); Monocytes % 8.4 %; Neutrophils # 3.96 10^3/uL (1.8-7.7); Neutrophils % 56.1 %; Nucleated Red Blood Cells % 0 %; Platelet Count 336 10^3/cmm (130-400); Red Blood Count 3.59 10^6/uL (4.1-5.3); Red Cell Distribution Width 16.8 % (12.1-15.1); White Blood Count 7.1 10^3/uL (4.0-10.0)
--- NOTE | 2022-10-14 06:47 | ANES.PREANE2 ---
Pre-Anesthetic Assessment Height/Weight: Height 1.75 m Weight 81.647 kg Temp Pulse Resp BP Pulse Ox O2 Del Method 97.5 F L 65 18 143/84 94 Room Air 10/14/22 06:05 10/14/22 06:05 10/14/22 06:05 10/14/22 06:05 10/14/22 06:05 10/14/22 06:05 Preop Diagnosis: Right Hip DJD Operation Date: 10/14/22 07:00 Proposed Procedures p right total hip arthroplasty:78766, M16.11(Right) - Matthew [place], Familial anesthetic complications: None Was Beta Alyce taken within 24 hours: N/A Was Clonidine taken within 24 hours: N/A Last intake: Intake Last Liquid Date 10/13/22 Last Liquid Time 18:00 Last Solid Date 10/13/22 Last Solid Time 18:00 Social Tobacco and No alcohol Exam alert, oriented x 3, clear to auscultation bilaterally and regular rate & rhythm Airway Mallampati: Class III Dentition: false Pulmonary Chronic Obstructive Pulmonary Disease CV/HEM Hypertension Anesthetic Plan ASA status: 3 Anesthesia: Regional (specify below) Other: discussed possibility of MS flare with patient and spinal vs general. Patient would like to proceed with spinal Risk of > 500 ml blood loss (7ml/kg in children): No Medications/Allergies Home Medications Medication Instructions Recorded Confirmed Last Taken Type amlodipine 5 mg tablet 5 mg PO DAILY 04/28/19 10/13/22 10/13/22 History multivitamin 1 tab PO QAM 04/28/19 10/13/22 10/13/22 History topiramate 50 mg tablet (Topamax) 100 mg PO QAM 04/28/19 10/13/22 10/13/22 History venlafaxine 75 mg capsule,extended 150 mg PO QAM 12/27/19 10/13/22 10/14/22 History release 24 hr (Effexor XR) ascorbic acid (vitamin C) 500 mg 500 mg PO BID 08/17/22 10/13/22 10/13/22 History capsule,extended release (Vitamin C) cholecalciferol (vitamin D3) 25 25 mcg PO DAILY 08/17/22 10/13/22 10/13/22 History mcg (1,000 unit) tablet (Vitamin D3) cyanocobalamin (vitamin B-12) 250 250 mcg PO DAILY 08/17/22 10/13/22 10/12/22 History mcg tablet (Vitamin B-12) melatonin 5 mg tablet 5 mg PO BEDTIME 08/17/22 10/13/22 10/12/22 History sennosides 8.6 mg-docusate sodium 1 tab-cap PO DAILY PRN 08/18/22 10/13/22 09/07/22 Rx 50 mg tablet (Senna-S) constipation #30 tabs albuterol sulfate 90 mcg/actuation 2 inh inhalation Q4H PRN shortness 08/22/22 10/13/22 Unknown Rx aerosol inhaler of breath or wheezing #18 grams levothyroxine 112 mcg tablet 112 mcg PO DAILY 09/02/22 10/13/22 10/14/22 History tramadol 50 mg tablet 50 mg PO Q8H PRN pain 7 days #21 09/23/22 10/13/22 10/13/22 Rx tabs Allergies Allergy/AdvReac Type Severity Reaction Status Date / Time Penicillins Allergy ALGY-Rash Verified 10/13/22 08:21 Sulfa (Sulfonamide Allergy ALGY-Rash Verified 10/13/22 08:21 Antibiotics) Current Medications Generic Name Dose Route Start Last Admin Trade Name Freq PRN Reason Stop Dose Admin Sodium Chloride 1,000 mls @ 30 mls/hr 10/14/22 05:45 10/14/22 06:33 Sodium Chloride 0.9% IV 10/15/22 05:44 30 mls/hr .Q24H JESSIE Administration PFSH Anesthesia Medical History (Updated 09/15/22 @ 10:59 by Misael Leger NP) Adult onset hypothyroidism Back pain with right-sided radiculopathy COPD (chronic obstructive pulmonary disease) Degeneration of intervertebral disc of lumbosacral region Fibromyalgia Herniated nucleus pulposus, L5-S1 Hyperlipemia L4-L5 disc bulge Multiple sclerosis Rib pain on left side Spinal stenosis, lumbar region, with neurogenic claudication Stress incontinence Vitamin D deficiency Surgical History History of cholecystectomy History of tubal ligation Family History Other Cancer Diabetes Social History Smoking and tobacco status: former smoker Quit status (tobacco): has quit using tobacco Year quit tobacco: 08/17/22 Second hand smoke exposure: No Alcohol intake: never Substance/Drug Use: never Lives independently: Yes Household members: spouse Marital status: service: No Current occupational status: retired and disabled Current gender identity: Female Data Anesthesia 10/14/22 06:20 Urine 10/14/22 Range/Units 05:55 Urine Color Dark yellow (Yellow) Urine Appearance Cloudy A (CLEAR) Urine pH 5 (5-7) Ur Specific [place] 1.025 (1.005-1.030) Urine Protein Trace (Negative) Urine Glucose (UA) Norm (Normal) Urine Ketones 1+ H (Negative) Urine Nitrate Negative (Negative) Urine Bilirubin 1+ H (Negative) Ur Leukocyte Esterase Negative (Negative) Urine RBC None (0-2) /hpf Urine WBC None (0-5) /hpf Cardiac Studies: No Data to Display
--- NOTE | 2022-10-14 06:52 | W.PM.OPSFHP ---
Same Day Surgery H&P Indication for Procedure/HPI DATE OF PROCEDURE: October 14, 2022 CHIEF COMPLAINT/INDICATIONFOR SURGICAL PROCEDURE: Patient presents today with severe right hip degenerative joint disease in preparation for a right total hip arthroplasty. She has failed conservative treatment. She is completed our preoperative medical optimization clearing process she is ready to proceed with a right total hip arthroplasty today. No change in HPI since her last office visit from 08/31/2022. PREOP DIAGNOSIS: Right Hip DJD PLANNED PROCEDURE: Operation Date: 10/14/22 07:00 Proposed Procedures p right total hip arthroplasty:33095, M16.11(Right) - Matthew Weston DO Medications/Allergies* Home Medications Medication Instructions Recorded Confirmed Type amlodipine 5 mg tablet 5 mg PO DAILY 04/28/19 10/13/22 History multivitamin 1 tab PO QAM 04/28/19 10/13/22 History topiramate 50 mg tablet (Topamax) 100 mg PO QAM 04/28/19 10/13/22 History venlafaxine 75 mg capsule,extended 150 mg PO QAM 12/27/19 10/13/22 History release 24 hr (Effexor XR) ascorbic acid (vitamin C) 500 mg 500 mg PO BID 08/17/22 10/13/22 History capsule,extended release (Vitamin C) cholecalciferol (vitamin D3) 25 25 mcg PO DAILY 08/17/22 10/13/22 History mcg (1,000 unit) tablet (Vitamin D3) cyanocobalamin (vitamin B-12) 250 250 mcg PO DAILY 08/17/22 10/13/22 History mcg tablet (Vitamin B-12) melatonin 5 mg tablet 5 mg PO BEDTIME 08/17/22 10/13/22 History levothyroxine 112 mcg tablet 112 mcg PO DAILY 09/02/22 10/13/22 History Allergies/Adverse Reactions Allergy/AdvReac Type Severity Reaction Status Date / Time Penicillins Allergy ALGY-Rash Verified 10/13/22 08:21 Sulfa (Sulfonamide Allergy ALGY-Rash Verified 10/13/22 08:21 Antibiotics) Current Medications: Generic Name Dose Route Start Last Admin Trade Name Freq PRN Reason Stop Dose Admin Sodium Chloride 1,000 mls @ 30 mls/hr 10/14/22 05:45 10/14/22 06:33 Sodium Chloride 0.9% IV 10/15/22 05:44 30 mls/hr .Q24H JESSIE Administration Pertinent History/Comorbid Conditions* Medical History (Updated 09/15/22 @ 10:59 by Misael Leger NP) Adult onset hypothyroidism Back pain with right-sided radiculopathy COPD (chronic obstructive pulmonary disease) Degeneration of intervertebral disc of lumbosacral region Fibromyalgia Herniated nucleus pulposus, L5-S1 Hyperlipemia L4-L5 disc bulge Multiple sclerosis Rib pain on left side Spinal stenosis, lumbar region, with neurogenic claudication Stress incontinence Vitamin D deficiency Surgical History (Updated 12/27/19 @ 20:48 by JACK Tillman) History of cholecystectomy History of tubal ligation Family History (Updated 04/28/19 @ 07:59 by Freya Garza LPN) Diabetes Cancer Social History Smoking and tobacco status: former smoker Quit status (tobacco): has quit using tobacco Year quit tobacco: 08/17/22 Second hand smoke exposure: No Alcohol intake: never Substance/Drug Use: never Lives independently: Yes Household members: spouse Marital status: service: No Current occupational status: retired and disabled Current gender identity: Female Pertinent Exam Findings alert, oriented x 3, operative site marked and procedure specific exam findings Right Hip Physical Examination: -Lateral trochanter tenderness to palpation -Positive TTP to groin -Severely diminished ROM -Extreme pain with hip flexion and IR -Pain with ER -Lumbar spine TTP -No SI joint TTP -Gross motor and sensory intact of the right lower extremity and right lower extremity is warm well perfused Recommendations Surgery/Procedure today Other Plans: Patient presents today for right total hip arthroplasty. She is cleared our preoperative clinic process. Her a.m. urine today demonstrates this does not appear to be a complete clean-catch but but she does not have any esterases or WBCs as a result and she is not symptomatic as result she does not appear to have any active UTI infection as result discussed this with her in detail and she and I both agree to proceed with a right total hip arthroplasty. All questions have been answered at this time. We reviewed her allergies we will give her clindamycin and vanco. Patient understands risk benefits complication alternatives of surgery and wants to proceed with surgical intervention. All questions answered. Proceed with right total hip arthroplasty. Coding Level of Care Code Acute Code for Chg Fwd Diagnoses Time Spent (min) 30
[2022-10-14 06:54] LABS: Anion Gap 16.1 (5-19); Blood Urea Nitrogen 16 mg/dL (8-23); Calcium 8.8 mg/dL (8.5-10.5); Carbon Dioxide 20 mmol/L (22-29); Chloride 107 mmol/L (98-107); Glomerular Filtration Rate 83.7 mL/min (90-130); Glucose 111 mg/dL (65-115); Osmolality Calculated 290 mOsm/kg (285-295); Potassium 4.1 mmol/L (3.5-5.1); Sodium 139 mmol/L (136-145)
[2022-10-14 06:59] LABS: Slide Review Slide Review Perform
[2022-10-14] MEDS: fentaNYL 50 mcg/mL INJ 2mL IVP (06:59)
[2022-10-14] MEDS: clindamycin 600 MG/50 ML PREMIX 100 MG IV ×3 (07:13→23:08)
[2022-10-14] MEDS: vancomycin 1,000 MG in sodium chloride 0.9% 250 ML 250 MG IV ×2 (08:12→12:08)
[2022-10-14] MEDS: vancomycin 1,000 MG SDV 1000 MG XX (08:33)
[2022-10-14] MEDS: lidocaine-epi 2% 20 mL INJ INJECTION (08:34)
--- NOTE | 2022-10-14 11:09 | P.OP_ITS ---
Operative Report Date of procedure: October 14, 2022 Pre-op diagnosis: Preop Diagnosis Right Hip DJD Procedure: Post-op diagnosis: Same Procedure done: Right total hip arthroplasty?Manny robotic assisted?anterior approach Implants: [place] Trident acetabular shell size 54 mm [place] acetabular screw 30 mm [place] acetabular screw 25 mm Accolade II 132 degree size 5? femur stem Trident 0 degree polyethylene 36 degree inner diameter 36 mm femoral head ceramic +0 mm Surgeon: Matthew Weston DO Anesthesia: Other (Spinal) Estimated blood loss: 350 mL IV fluids: 1000 mL Complications: None Findings: See operative report narrative Condition: stable Disposition: floor Brief History: Patient is a 66-year-old female presented to my outpatient office setting findings consistent with gsxt-am-[id number] arthritis advanced degenerative joint disease of the right hip.? We talked about treatment options as far as nonoperative and operative intervention. Pt has failed conservative treatment. Patient's right hip degenerative joint disease has been so severe she has been minimally ambulatory over the past couple months given her pain and decreased range of motion. we talked about treatment options at this point time pt understands the risk benefits complication alternatives surgical nonsurgical treatment options.? Patient understands the risk of surgery and agrees to proceed.? Patient has underwent a preoperative evaluation. Pt cleared for surical intervention. Pt understood and was agreeable to proceed with a right total hip arthroplasty consent was reviewed and signed with patient.?? All questions answered.? Patient will be admitted postoperatively. Procedure: Patient was seen evaluated in the preoperative holding area.? Consent was reviewed and signed with patient.? Correct operative extremity was then marked. ? All questions were answered at this time.? Once cleared by anesthesia used to brought back to the operative suite he then underwent anesthesia per the anesthesia department of a spinal anesthetic. The patient was administered tranexamic acid and preop antibiotics, and placed in the supine position. All bony prominences were properly padded, securely fixed to the table, and administered?general?anesthetic. The patient was subsequently transferred from the hospital bed to the [place] table. Bilateral lower extremities were placed in the traction boots. The pelvis was well approximated against the perineal post.? Final timeout performed.? Patient received appropriate preoperative antibiotics. Both hips were then prepped and draped in a normal orthopedic fashion.? Started with a small incision 2 fingerbreadths above the ASIS on the left iliac wing to place? pelvic arrays.? Small incision was made directly down to bone.? 3 pelvic pins were placed with excellent fixation.? The robotic array was secured to the nonoperative iliac wing using sterile technique. The extremity was then definitively draped in standard, sterile fashion.? The array was found to be visible by the robot. ?A standard? anterior supine approach was performed to the?operative hip joint. The skin was incised down to the tensor fascia jacqueline muscle and fascia. Fascia was split longitudinally in line with its fibers. The tensor fascia jacqueline muscle was retracted laterally. The appropriate retractors were placed superiorly. Lateral circumflex vessels were identified and appropriately ligated. The hip capsule was then identified.? Appropriate retractors were placed superiorly and inferiorly along the capsule directly onto bone.? That was split longitudinally up to the acetabular rim in line with the femoral neck. The femoral capsule was found to be significantly hypertrophic, thickened, and significantly fibrotic. The capsule was then elevated both superiorly and inferiorly down to the lesser trochanter as well as up towards the greater trochanter.? Tag stitches were applied with 0 Vicryl into the capsule.? Femoral check point was?then inserted and confirmed on the lateral trochanter proximal femur.? .? A distal marker?of a sterile EKG lead was placed into the distal femur for measurement of leg lengths.? Preoperative leg lengths were registered and confirmed at this point. Next the appropriate-sized neck cut was then performed after being measured with robotic assistance. Femoral head was removed atraumatically this was found to have significant degenerative changes and deformity with significant osteophyte formation.? Femoral head was found to be severely degenerated and flattening with, eburnated bone. Acetabulum was also inspected and was found to have peripheral osteophytes as well as no evidence of cartilage consistent with [id number] arthritis.? Appropriate retractors were then placed in the anterior and posterior wall.? The remaining labrum was then excised from the periphery of the acetabular rim. Pulvinar was excised.? At this point registration for the Manny was performed on the acetabular side and confirmed. Once confirmed, any osteophytes able to be were removed. We planned 40 degrees of lateral opening and 20 degrees of anteversion. At this point, we reamed and medialized to the inner wall of the acetabulum with a size?54?reamer for line to line fit.?The acetabulum was found to have good bleeding bone throughout.?? Reamer removed excellent bleeding bone circumferentially with sufficient anterior and posterior wall. ?The definitive acetabular cup 54 mm was inserted and impacted under?Manny guidance with the appropriate amount of anteversion and lateral opening. It was then secured with 2x 6.5 mm cancellous screws in appropriate safe zone position.? I subsquently drilled measured and place appropriate length acetabular screws which measured 30 mm and 25 mm.? These had excellent fixation final x-rays were taken of the acetabular work and showed a seated and well fixed acetabular cup with appropriate position acetabular screws.? ?Next a 36-mm X3 neutral liner was impacted into the?acetabular shell and secured. Hip was then irrigated with copious amounts of irrigation. At this point, the remaining femoral releases were then performed allowing the adequate mobilization of the?right?femur.? Traction was confirmed to being off to the right lower extremity and the femur was then externally rotated, extended, and adducted giving adequate exposure of the proximal femur in the surgical wound. Box cut was then used to enter the intramedullary canal of the?femur. Canal finder was placed down the canal of the?operative femur. Appropriate-sized broaches from a size 0 up to a size 5 were impacted down the operative femoral canal with the appropriate amount of anteversion.? A multiple trials were attempted and it was found that?+0mm neck was found to be most appropriate for a soft tissue tensioning offset, stability and the leg lengths that was confirmed with Manny. ?Stability was then assessed and excellent stability with patient external rotation of greater than 90 degrees and traction with no evidence of hip instability.? Appropriate tension noted of the soft tissues. At this point, the hip was relocated.?Manny guidance was again used to confirm appropriate leg lengths. I utilized C arm to evaluate for leg lengths as well I did slightly at the lengthen comparative to the contralateral extremity but this was the appropriate size for patient's stability and excellent soft tissue tensioning as well as this was mapped with her preoperative planning given she had been significantly shortened given her arthritis. Operative hip was then re-dislocated using a bone hook. All trials were then removed from the?operative femur. Adequate exposure was then once again obtained. The trials were removed. The definitive Accolade II stem size 5 was impacted down the?femoral canal with the appropriate amount of anteversion. The appropriate sized head 36 mm ceramic +0 mm was impacted onto the trunnion, and the?operative?hip was then relocated with traction and internal rotation. Final measurements were obtained on Manny confirming leg lengths and offset.? Once again hip stability was assessed and found to have excellent stability and appropriate soft tissue tensioning.? Hip was irrigated with copious amounts of irrigation.? Vancomycin powder was placed within the wound bed for added infection prophylaxis.? The superior and inferior leaflets of the capsule were then closed with Ethibond suture.? Vicryl tag stitches were removed.? The superficial layer of the tensor fascia jacqueline fascia was closed using 0 stratafix suture in a running fashion.? Subcutaneous tissues were closed with running 3-0 Stratafix, skin was closed with 4-0 monocryl.?Surgical Prineo glue and steri strips were?applied and covered with a optsite dressing to the operative side.?The incision on the non-operative side for the robotic array was irrigated and closed with layered fashion of 0 Vicryl, 2-0 Vicryl and running Monocryl suture and surgical glue and covered with Silverlon. ?The patient was subsequently awoken per Anesthesia and transferred to PACU in satisfactory condition. ?Leg lengths and rotational profile were found to be appropriate. ? DISPOSITION: The patient will be admitted to the hospital for initiation of DVT prophylaxis, physical therapy, pain control. The patient is to weight bear as tolerated. Anterior hip precautions, postoperative antibiotics,?postoperative TXA and Eliquis?for DVT prophylaxis.? Patient will receive appropriate discharge instructions as well as pain medication postoperatively and will follow up in my office in 2 weeks.? Patient with work with PT/OT.? Internal medicine will be consulted for medical management
--- NOTE | 2022-10-14 11:09 | PM.OP2 ---
Brief Operative Note Date of procedure: 10/14/22 Pre-op diagnosis: Right hip degenerative joint disease Post-op diagnosis: same Procedure Done: Right total hip arthroplasty anterior approach?Manny robotic assisted Surgeon: Matthew Weston Estimated blood loss (mL): 350 Complications: None Post-op Plan: Patient taken to PACU in stable condition recovering well. Will be admitted to the floor postoperatively. Patient receive appropriate postoperative antibiotics postoperative TXA postoperative DVT prophylaxis. Weight-bear as tolerated right lower extremity anterior hip precautions PT/OT. Hospitalist will be on board and appreciate their recommendations and medical management. Orthopedics will continue to monitor. All questions answered. Patient understands and agrees with current plan. Condition: stable Disposition: floor Coding Level of Care Code Acute Code for Chg Fwd
--- NOTE | 2022-10-14 11:09 | PM.PACU ---
PACU note Narrative: Patient taken PACU in stable condition recovering well spinal anesthesia has subsequently worn off she is able to wiggle her toes plantarflex and dorsiflex ankle sensations intact to light touch distally to the right lower extremity. Her bandages to the right hip and left iliac wing are clean dry and intact compartments are soft compressible. She is able to perform straight leg raise off of the bed and perform knee extension. Appropriate leg lengths noted. Exam: awake Disposition: admitted
--- NOTE | 2022-10-14 11:12 | XR_ITS ---
WS: [id number] Exam: XR hip RT 2-3V wo/w pel* [id number] Date/Time of Exam: 10/14/2022 11:12 AM Reason For Exam: post op ANUPAM Comparison 08/31/2022. Right total hip arthroplasty noted in excellent position. Postoperative changes in the adjacent soft tissues. XR/XR hip RT 2-3V wo/w pel* [id number] IMPRESSION: 1. Right total hip arthroplasty in excellent position.
[2022-10-14] MEDS: ketorolac 30 mg/mL INJ 15 MG IVP (12:04)
[2022-10-14] MEDS: lactated ringers 1,000 ML 100 ML IV (12:09)
--- NOTE | 2022-10-14 12:13 | PM.CONSULT ---
Providers/Reason For Consult Consulting Physician/Specialty*: Fabian Mueller MD, hospitalist Reason for Consult*: Medical management Requesting Physician: Dr. Weston Attending Physician: Matthew Weston DO Primary Care Provider: JACK Tillman History of Present Illness History of Present Illness Melodie Clancy is a 66 year old female who underwent right total hip arthroplasty earlier this morning by Dr. Weston. I am asked to see her for her chronic medical conditions, and management of these during her hospital stay. Dr. Weston communicated to me that the surgery went well without complications. The patient has no complaints other than some pain, which is currently being managed. Review of Systems General: Reports: 10 or more systems reviewed and unremarkable except in HPI and below Card: Denies: chest pain Resp: Denies: dyspnea Medications/Allergies Home Medications Medication Instructions Recorded Confirmed Last Taken Type amlodipine 5 mg tablet 5 mg PO DAILY 04/28/19 10/13/22 10/13/22 History multivitamin 1 tab PO QAM 04/28/19 10/13/22 10/13/22 History topiramate 50 mg tablet (Topamax) 100 mg PO QAM 04/28/19 10/13/22 10/13/22 History venlafaxine 75 mg capsule,extended 150 mg PO QAM 12/27/19 10/13/22 10/14/22 History release 24 hr (Effexor XR) ascorbic acid (vitamin C) 500 mg 500 mg PO BID 08/17/22 10/13/22 10/13/22 History capsule,extended release (Vitamin C) cholecalciferol (vitamin D3) 25 25 mcg PO DAILY 08/17/22 10/13/22 10/13/22 History mcg (1,000 unit) tablet (Vitamin D3) cyanocobalamin (vitamin B-12) 250 250 mcg PO DAILY 08/17/22 10/13/22 10/12/22 History mcg tablet (Vitamin B-12) melatonin 5 mg tablet 5 mg PO BEDTIME 08/17/22 10/13/22 10/12/22 History sennosides 8.6 mg-docusate sodium 1 tab-cap PO DAILY PRN 08/18/22 10/13/22 09/07/22 Rx 50 mg tablet (Senna-S) constipation #30 tabs albuterol sulfate 90 mcg/actuation 2 inh inhalation Q4H PRN shortness 08/22/22 10/13/22 Unknown Rx aerosol inhaler of breath or wheezing #18 grams levothyroxine 112 mcg tablet 112 mcg PO DAILY 09/02/22 10/13/22 10/14/22 History tramadol 50 mg tablet 50 mg PO Q8H PRN pain 7 days #21 09/23/22 10/13/22 10/13/22 Rx tabs Allergies Allergy/AdvReac Type Severity Reaction Status Date / Time Penicillins Allergy ALGY-Rash Verified 10/13/22 08:21 Sulfa (Sulfonamide Allergy ALGY-Rash Verified 10/13/22 08:21 Antibiotics) Current Medications Generic Name Dose Route Start Last Admin Trade Name Freq PRN Reason Stop Dose Admin Lactated Ringer's 1,000 mls @ 100 mls/hr 10/14/22 11:44 10/14/22 12:09 Lactated Ringers IV 100 mls/hr .Q10H JESSIE Administration Vancomycin HCl 1,000 mg/ 250 mls @ 250 mls/hr 10/14/22 11:44 10/14/22 12:08 Sodium Chloride IV 10/14/22 12:43 250 mls/hr ONCE ONE Administration Protocol Ketorolac Tromethamine 15 mg 10/14/22 11:44 10/14/22 12:04 Ketorolac 30 Mg/Ml Inj IVP 15 mg Q6H PRN Administration MODERATE TO SEVERE PAIN PFSH Acute PFSH: Medical History (Updated 10/14/22 @ 12:17 by Fabian Mueller MD) Adult onset hypothyroidism Back pain with right-sided radiculopathy COPD (chronic obstructive pulmonary disease) Degeneration of intervertebral disc of lumbosacral region Fibromyalgia Herniated nucleus pulposus, L5-S1 Hyperlipemia L4-L5 disc bulge Multiple sclerosis Rib pain on left side Spinal stenosis, lumbar region, with neurogenic claudication Stress incontinence Vitamin D deficiency Surgical History (Updated 10/14/22 @ 12:17 by Fabian Mueller MD) History of cholecystectomy History of tubal ligation Family History Other Cancer Diabetes Social History Smoking and tobacco status: former smoker Quit status (tobacco): has quit using tobacco Year quit tobacco: 08/17/22 Second hand smoke exposure: No Alcohol intake: never Substance/Drug Use: never Lives independently: Yes Household members: spouse Marital status: service: No Current occupational status: retired and disabled Current gender identity: Female Vitals/I&O/Wt Last Vital Signs Temp 97.5 F L 10/14/22 06:05 Pulse 80 10/14/22 11:40 Resp 16 10/14/22 11:40 BP 117/62 10/14/22 11:25 Pulse Ox 91 10/14/22 11:40 O2 Del Method Room Air 10/14/22 11:40 O2 Flow Rate 8 10/14/22 10:50 10/13/22 10/14/22 10/14/22 22:59 06:59 14:59 Intake Total 100 / 100 1460 / 1460 Output Total 1050 / 1050 Balance 100 / 100 410 / 410 Weight last 48 hrs Weight 81.647 kg Physical Exam Narrative: General exam is conversive, alert, without complaints HEENT: Atraumatic and normocephalic. Oropharynx clear Neck is supple no lymphadenopathy thyromegaly Cardiovascular regular rate and rhythm without murmur, no S3 or S4 Lungs clear no wheezing or crackles Abdomen is soft nontender positive bowel sounds. No obvious organomegaly exam was deferred Extremities no cyanosis clubbing or edema, right hip, lateral side, with dressing which is clean and dry. She is able to move her foot distally without difficulty and no foot drop Skin no rash Neuro no obvious focal deficits Urinary Catheter Management: [place]: Cath Placed During This Visit: yes Urinary Catheter Date of Insertion: 10/14/22 Urinary Catheter Time of Insertion: 07:35 Data 10/14/22 06:20 10/14/22 06:20 Other Labs: Laboratory was reviewed in detail including her elevated MCV and elevated RDW A&P Assessment and plan (1) S/P total hip arthroplasty: Patient is directly postoperative total hip arthroplasty Pain control per Dr. Weston CBC tomorrow as well as BMP as she is currently on IV fluids, and to monitor for postoperative acute blood loss anemia Therapy consultations as per Dr. Weston (2) COPD (chronic obstructive pulmonary disease): DuoNeb as needed will be initiated (3) Macrocytosis: Patient reports past history of macrocytosis. She has had a TSH, and B12 level done recently. We will go ahead and check a folate level on blood in lab. Discussed with her in detail this will need followed up by her primary care provider, to determine if any further work-up is needed. We discussed the possibility of myelodysplasia as well. Patient denies any risk factors for cirrhosis, and reports rare alcohol intake. (4) Fibromyalgia: Continue current medications (5) Adult onset hypothyroidism: Continue current dose of thyroid hormone Plan Other medical problems as outlined in past medical history Eliquis is being used for DVT prophylaxis Thank you for this consultation. We will continue to follow along with you Consult Attestations Medical Necessity Statement: As per primary Diagnoses S/P total hip arthroplasty Z96.649 COPD (chronic obstructive pulmonary disease) J44.9 Macrocytosis D75.89 Fibromyalgia M79.7 Adult onset hypothyroidism E03.8 Time Spent (min) 40
[2022-10-14] MEDS: oxyCODONE 5 mg IR Tab/Cap PO ×3 (12:48→19:26)
[2022-10-14] MEDS: chlorhexidine gluconate 0.12% UDC 15 mL 30 ML MUCOUS MEM ×3 (14:55→20:14)
--- NOTE | 2022-10-14 15:06 | PC.NURSE ---
Patient has chronic left sided weakness to left leg, left arm, and left sided facial droop.
--- NOTE | 2022-10-14 15:19 | XR_ITS ---
WS: [id number] C-ARM RADIOGRAPHS RIGHT HIP; 3 IMAGES HISTORY: OR Pics COMPARISON: 10/14/2022 Initial imaging demonstrates lateral dislocation of the RIGHT hip arthroplasty. The femoral head comp onent is lateral with respect to the acetabulum. No fractures identified on this image within the OR. There is a subsequent image which demonstrates the femoral head is normally positioned on the AP rad iograph. No lateral projection. XR/XR hip RT 1V wo/w pel [id number] IMPRESSION: Intraoperative postreduction imaging of the RIGHT hip dislocation. Femoral head normally situated with respect to the acetabular component after successful re duction. No lateral projection.
--- NOTE | 2022-10-14 15:56 | ANE.PACU2 ---
Inpatient post-anesthesia follow up: Airway intact: Yes Vital signs: Temperature 97.9 F Pulse Rate 75 Respiratory Rate 16 Blood Pressure 108/66 Pulse Oximetry 91 Oxygen Delivery Me thod Room Air Oxygen Flow Rate 8 Fraction of Inspir ed Oxygen Hydration adequate: Yes Nausea and vomiting: No Pain level: 1 Mental status: Baseline
[2022-10-14] MEDS: clindamycin 300 MG/50 ML PREMIX 100 MG IV ×2 (16:34→23:09)
[2022-10-14] MEDS: sennosides-docusate Tablet 2 TAB PO (17:54)
[2022-10-14] MEDS: calcium carb-vit d 600mg/400unit 1 Tablet 1 EACH PO (17:54)
[2022-10-14] MEDS: iron polysaccharide complex 150 mg Capsule PO (17:54)
[2022-10-15] VITALS (14 sets, daily range): BP systolic 106–134; BP diastolic 57–70; PULSE 71–90; RESP 16–18; TEMP 36.3–37; O2SAT 90–96
[2022-10-15] MEDS: oxyCODONE 5 mg IR Tab/Cap PO ×6 (02:21→22:27)
[2022-10-15 04:47] LABS: Basophils # 0.1 10^3/uL (0.0-0.1); Basophils % 0.7 %; Eosinophils # 0.2 10^3/uL (0.0-0.8); Eosinophils % 1.9 %; Hematocrit 26.2 % (37.0-47.0); Hemoglobin 8.4 g/dL (11.5-15.3); Lymphocytes # 1.5 10^3/uL (0.8-4.8); Mean Corpuscular HGB Conc 32.1 g/dL (30.0-36.0); Mean Corpuscular Volume 106.1 fl (81-99); Mean Platelet Volume 11.1 fL (7.4-10.4); Monocytes % 9.4 %; Neutrophils # 7.71 10^3/uL (1.8-7.7); Neutrophils % 73.6 %; Nucleated Red Blood Cells % 0.2 %; Platelet Count 263 10^3/cmm (130-400); Red Blood Count 2.47 10^6/uL (4.1-5.3); Red Cell Distribution Width 16.4 % (12.1-15.1); White Blood Count 10.5 10^3/uL (4.0-10.0)
[2022-10-15 05:07] LABS: Anion Gap 14.8 (5-19); Blood Urea Nitrogen 13 mg/dL (8-23); Calcium 8.3 mg/dL (8.5-10.5); Carbon Dioxide 22 mmol/L (22-29); Chloride 111 mmol/L (98-107); Glucose 106 mg/dL (65-115); Osmolality Calculated 299 mOsm/kg (285-295); Potassium 3.8 mmol/L (3.5-5.1); Sodium 144 mmol/L (136-145)
[2022-10-15] MEDS: venlafaxine ER (24HR) 150 mg Capsule PO (05:46)
[2022-10-15] MEDS: acetaminophen 1,000 MG/100 ML PIGGYBACK 400 MG IV (05:46)
[2022-10-15] MEDS: topiramate 100 mg Tablet PO (05:46)
[2022-10-15] MEDS: clindamycin 600 MG/50 ML PREMIX 100 MG IV (06:16)
[2022-10-15] MEDS: clindamycin 300 MG/50 ML PREMIX 100 MG IV (06:35)
[2022-10-15] MEDS: apixaban 5 mg Tablet 2.5 MG PO ×2 (09:02→17:52)
[2022-10-15] MEDS: iron polysaccharide complex 150 mg Capsule PO ×2 (09:02→17:53)
[2022-10-15] MEDS: calcium carb-vit d 600mg/400unit 1 Tablet 1 EACH PO ×2 (09:03→17:52)
[2022-10-15] MEDS: levothyroxine 112 mcg Tablet PO (09:03)
[2022-10-15] MEDS: multivitamin therapeutic Tablet 1 TAB PO (09:03)
[2022-10-15] MEDS: chlorhexidine gluconate 0.12% UDC 15 mL 30 ML MUCOUS MEM ×2 (09:04→13:15)
--- NOTE | 2022-10-15 11:13 | PC.CHAP ---
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 [] Patient/Family/Request visit [] Outpatient visit [] Follow-up visit [] Physician referral [] Code/Alert [x] Routine visit [] Staff referral [] Actively dying [] Patient sleeping [] Family support [] [] Out of room [] Palliative care [] [x] Receiving care in room [] Pre-surgical visit [] Trauma [] Long length of stay [] ICU visit [] Other: Relational/Emotional Strength [x] Patient feels connected with others/family/visitors/staff [] Distress [] Loneliness/isolation [] Abandonment Spirituality of Patient [x] Person of [place] [] Attends Church of their [place] [x] Believes in Prayer [] Reads Bible or Moravian materials [] There are Spiritual issues to be addressed 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 Interventions [x] Prayer [x] Active listening [x] Non-anxious presence [x] Spiritual/emotional support [] Crisis/trauma care [x] Spiritual counseling [] Bereavement support [] Provided bereavement packet [] Provided Bible/devotional materials [] Provided toy/stuffed animal, coloring book to patient or family member [] Provided Communion [] Anointing/[place] [] Salvation [x] Completed spiritual assessment [] Other: Impact on Illness or Injury [] Angry [] Fearful [] Anxious [] Often cries [] Exhaustion [] Unable to work [] Unable to attend buddhism [] Unable to walk/stand [] Unable to read [] Unable to drive [] Unable to eat/drink [] Unable to sleep [] Unable to be with family [] Patient intubated [] Other: Summary hip replacement well need some rehab has a good attitude Time spent with patient 10 mins
[2022-10-15] MEDS: lactated ringers 1,000 ML 100 ML IV (14:12)
--- NOTE | 2022-10-15 14:38 | PM.PN ---
Subjective Subjective: Patient reports she had some pain through the night. Otherwise doing okay. Discharge planning indicates she may be doing skilled care. Medications: Reviewed: Yes Vitals/I&O/Wt Last Vital Signs Temp 97.3 F L 10/15/22 11:35 Pulse 71 10/15/22 11:35 Resp 18 10/15/22 14:00 BP 122/68 10/15/22 11:35 Pulse Ox 91 10/15/22 11:35 O2 Del Method Room Air 10/15/22 11:35 O2 Flow Rate 8 10/14/22 10:50 10/14/22 10/15/22 10/15/22 22:59 06:59 14:59 Intake Total 660 / 2360 100 / 2460 1919 Output Total 850 / 1900 800 / 2700 Balance -190 / 460 -700 / -240 1919 Physical Exam Narrative: General exam no distress Neck is supple no lymphadenopathy thyromegaly Cardiovascular regular rate and rhythm without murmur, no S3 or S4 Lungs clear no wheezing or crackles Abdomen is soft nontender positive bowel sounds. No obvious organomegaly Extremities no cyanosis clubbing or edema, right hip, lateral side, with dressing which is clean and dry. She is able to move her foot distally without difficulty and no foot drop Urinary Catheter Management: [place]: Cath Placed During This Visit: yes, but has since been removed by the nurse Reason for Continuing Indwelling Catheter: Decision to DC Catheter Urinary Catheter Date of Insertion: 10/14/22 Urinary Catheter Time of Insertion: 07:35 Date Urinary Catheter Removed: 10/15/22 Time Urinary Catheter Discontinued: 13:29 Data 10/15/22 04:35 10/15/22 04:35 A&P Assessment and plan (1) S/P total hip arthroplasty: Patient is postoperative day #1 status post right total hip arthroplasty Pain control per Dr. Weston Therapy consultations as per Dr. Weston Stop IV fluids today (2) COPD (chronic obstructive pulmonary disease): DuoNeb as needed will be initiated (3) Macrocytosis: Patient reports past history of macrocytosis. She has had a TSH, and B12 level done recently. We will go ahead and check a folate level on blood in lab. Discussed with her in detail this will need followed up by her primary care provider, to determine if any further work-up is needed. We discussed the possibility of myelodysplasia as well. Patient denies any risk factors for cirrhosis, and reports rare alcohol intake. (4) Fibromyalgia: Continue current medications (5) Adult onset hypothyroidism: Continue current dose of thyroid hormone (6) Anemia: Patient has evidence of acute postoperative blood loss anemia, with hemoglobin decreasing to 8.4. Repeat tomorrow. Plan Other medical problems as outlined in past medical history Eliquis is being used for DVT prophylaxis Thank you for this consultation. We will continue to follow along with you Attestations Medical Necessity Statement*: As per primary Diagnoses S/P total hip arthroplasty Z96.649 COPD (chronic obstructive pulmonary disease) J44.9 Macrocytosis D75.89 Fibromyalgia M79.7 Adult onset hypothyroidism E03.8 Anemia D64.9 Time Spent (min) 21
[2022-10-15 16:52] LABS: Folate Level > 20.0 ng/mL (4.8-37.3)
[2022-10-15] MEDS: chlorhexidine gluconate 0.12% Btl 473 mL 30 ML MUCOUS MEM ×2 (18:56→20:06)
--- NOTE | 2022-10-15 19:30 | PM.PN ---
Subjective Subjective: Patient seen and evaluated postoperatively. No acute issues overnight. Patient has had considerable pain. She is neurovascular intact distally. Patient will be working with therapy. Vitals/I&O/Wt Last Vital Signs Temp 98.4 F 10/16/22 04:00 Pulse 87 10/16/22 08:16 Resp 16 10/16/22 08:19 BP 166/65 10/16/22 04:00 Pulse Ox 94 10/16/22 08:16 O2 Del Method Room Air 10/16/22 08:16 O2 Flow Rate 8 10/14/22 10:50 10/15/22 10/16/22 10/16/22 22:59 06:59 14:59 Intake Total 240 / 2235 Output Total Balance 239 / 4 Physical Exam Narrative: Examination of the right hip demonstrates Silverlon dressing on in place clean dry and intact. Patient has normal postoperative swelling to the right hip/thigh. Normal ecchymosis. Patient compartments are soft and compressible. She is able to perform a straight leg raise in bed. She is able to form knee extension. We able to wiggle toes plantarflex and dorsiflex ankle. Distal pulses are palpable toes are warm well-perfused brisk capillary refill less than 2 seconds. Urinary Catheter Management: [place]: Cath Placed During This Visit: yes, but has since been removed by the nurse Reason for Continuing Indwelling Catheter: Decision to DC Catheter Urinary Catheter Date of Insertion: 10/14/22 Urinary Catheter Time of Insertion: 07:35 Date Urinary Catheter Removed: 10/15/22 Time Urinary Catheter Discontinued: 13:29 Data 10/16/22 05:11 10/16/22 05:11 Other Labs: Hemoglobin 8.4 on 10/15/2022 WBC 10.5 10/15/2022 Xray Ortho: My impression: Postoperative x-rays of the right hip demonstrate stable right total hip arthroplasty with stable prosthesis no evidence of periprosthetic fracture or dislocation, with appropriate leg lengths. A&P Assessment and plan (1) S/P total hip arthroplasty: (2) Anemia: Plan Pain control Weight-bear as tolerated right lower extremity Anterior hip precautions PT/OT DVT prophylaxis Postoperative antibiotics Imaging PACU reviewed A.m. labs reviewed Orthopedics will continue to monitor. Patient still requiring IV pain medication as well as needing extensive close monitored physical therapy this patient prior to surgery had not truly ambulated according to her for the past several months given her pain. Would like to continue to monitor and will reevaluate tomorrow Change dressing as needed Attestations Medical Necessity Statement*: Ongoing care postoperative right total hip arthroplasty Coding Level of Care Code Acute Code for Chg Fwd Diagnoses S/P total hip arthroplasty Z96.649 Anemia D64.9 Time Spent (min) 45
[2022-10-16] VITALS (11 sets, daily range): BP systolic 97–166; BP diastolic 47–68; PULSE 83–94; RESP 15–18; TEMP 36.3–37.3; O2SAT 90–95
[2022-10-16] MEDS: oxyCODONE 5 mg IR Tab/Cap PO ×5 (02:20→22:00)
[2022-10-16 05:29] LABS: Basophils # 0.1 10^3/uL (0.0-0.1); Basophils % 0.9 %; Eosinophils # 0.4 10^3/uL (0.0-0.8); Hematocrit 24.6 % (37.0-47.0); Hemoglobin 8.1 g/dL (11.5-15.3); Lymphocytes # 1.4 10^3/uL (0.8-4.8); Lymphocytes % 12.9 %; Mean Corpuscular HGB Conc 32.9 g/dL (30.0-36.0); Mean Corpuscular Hemoglobin 34.5 pg (28.0-34.0); Mean Corpuscular Volume 104.7 fl (81-99); Mean Platelet Volume 11.5 fL (7.4-10.4); Monocytes # 1.2 10^3/uL (0.2-0.9); Monocytes % 11.2 %; Neutrophils # 7.73 10^3/uL (1.8-7.7); Neutrophils % 70.5 %; Nucleated Red Blood Cells % 0.3 %; Platelet Count 252 10^3/cmm (130-400); Red Blood Count 2.35 10^6/uL (4.1-5.3)
[2022-10-16 05:52] LABS: Anion Gap 12.9 (5-19); Blood Urea Nitrogen 12 mg/dL (8-23); Calcium 8.3 mg/dL (8.5-10.5); Carbon Dioxide 25 mmol/L (22-29); Chloride 105 mmol/L (98-107); Glucose 115 mg/dL (65-115); Osmolality Calculated 289 mOsm/kg (285-295); Potassium 3.9 mmol/L (3.5-5.1); Sodium 139 mmol/L (136-145)
[2022-10-16] MEDS: venlafaxine ER (24HR) 150 mg Capsule PO (06:06)
[2022-10-16] MEDS: topiramate 100 mg Tablet PO (06:06)
--- NOTE | 2022-10-16 07:03 | PM.PN ---
Subjective Subjective: Patient seen and examined. Patient has been working with therapy but still requiring IV pain medication and has had minimal mobility with therapy likely due to her deconditioning from months of minimal ambulation. Internal both food on board and appreciate medical management. Patient states she has had felt slightly low-grade fever of 99.1 this morning Vitals/I&O/Wt Last Vital Signs Temp 98.4 F 10/16/22 04:00 Pulse 90 10/16/22 04:00 Resp 15 10/16/22 04:00 BP 166/65 10/16/22 04:00 Pulse Ox 90 10/16/22 04:00 O2 Del Method Room Air 10/16/22 04:00 O2 Flow Rate 8 10/14/22 10:50 10/15/22 10/16/22 10/16/22 22:59 06:59 14:59 Intake Total 240 / 2235 Output Total Balance 239 / 2234 Physical Exam Narrative: Examination of the right hip demonstrates Silverlon dressing on in place clean dry and intact. Patient has normal postoperative swelling to the right hip/thigh. Normal ecchymosis. Patient compartments are soft and compressible. She is able to perform a straight leg raise in bed. She is able to form knee extension. We able to wiggle toes plantarflex and dorsiflex ankle. Distal pulses are palpable toes are warm well-perfused brisk capillary refill less than 2 seconds. Silverlon dressing to the left iliac crest is clean dry and intact Urinary Catheter Management: [place]: Cath Placed During This Visit: yes, but has since been removed by the nurse Reason for Continuing Indwelling Catheter: Decision to DC Catheter Urinary Catheter Date of Insertion: 10/14/22 Urinary Catheter Time of Insertion: 07:35 Date Urinary Catheter Removed: 10/15/22 Time Urinary Catheter Discontinued: 13:29 Data 10/16/22 05:11 10/16/22 05:11 A&P Assessment and plan (1) S/P total hip arthroplasty: (2) Anemia: Plan Pain control Weight-bear as tolerated right lower extremity Anterior hip precautions PT/OT DVT prophylaxis A.m. labs reviewed Orthopedics will continue to monitor. Patient still requiring IV pain medication as well as needing extensive close monitored physical therapy. Patient has not progressed enough for safety for discharge from an orthopedic standpoint as I worry she could potentially fall given her likely deconditioning. This point time she is still requiring some pain medication. Encourage incentive spirometry given her 99.1 fever and talked about atelectasis and the importance of her incentive spirometry. This point time would recommend continued hospitalization and monitoring. We will evaluate patient tomorrow. Change dressing as needed Attestations Medical Necessity Statement*: Ongoing care postoperative right total hip arthroplasty Coding Level of Care Code Acute Code for Chg Fwd Diagnoses S/P total hip arthroplasty Z96.649 Anemia D64.9 Time Spent (min) 20
--- NOTE | 2022-10-16 08:08 | P.PN_ITS ---
Subjective Subjective: Melodie reports her pain is less. She has no specific complaints today. We discussed sleep apnea briefly, her possibility of having this. I encouraged her to get an outpatient sleep study. Medications: Reviewed: Yes Vitals/I&O/Wt Last Vital Signs Temp 98.4 F 10/16/22 04:00 Pulse 90 10/16/22 04:00 Resp 15 10/16/22 04:00 BP 166/65 10/16/22 04:00 Pulse Ox 90 10/16/22 04:00 O2 Del Method Room Air 10/16/22 04:00 O2 Flow Rate 8 10/14/22 10:50 10/15/22 10/16/22 10/16/22 22:59 06:59 14:59 Intake Total 240 / 2235 Output Total Balance 239 / 2234 Physical Exam Narrative: General exam no distress Cardiovascular regular rate and rhythm without murmur, no S3 or S4 Lungs clear no wheezing or crackles Extremities no cyanosis clubbing or edema, right hip, lateral side, with dressing which is clean and dry. She is able to move her foot distally without difficulty and no foot drop Urinary Catheter Management: [place]: Cath Placed During This Visit: yes, but has since been removed by the nurse Reason for Continuing Indwelling Catheter: Decision to DC Catheter Urinary Catheter Date of Insertion: 10/14/22 Urinary Catheter Time of Insertion: 07:35 Date Urinary Catheter Removed: 10/15/22 Time Urinary Catheter Discontinued: 13:29 Data 10/16/22 05:11 10/16/22 05:11 A&P Assessment and plan (1) S/P total hip arthroplasty: Patient is postoperative day #2 status post right total hip arthroplasty Pain control per Dr. Weston. Her pain is improving Therapy consultations as per Dr. Weston. Therapy reports patient is progressing well (2) COPD (chronic obstructive pulmonary disease): DuoNeb as needed will be initiated (3) Macrocytosis: Patient reports past history of macrocytosis. She has had a TSH, and B12 level done recently. We will go ahead and check a folate level on blood in lab. Discussed with her in detail this will need followed up by her primary care provider, to determine if any further work-up is needed. We discussed the possibility of myelodysplasia as well. Patient denies any risk factors for cirrhosis, and reports rare alcohol intake. Folate was normal (4) Fibromyalgia: Continue current medications (5) Adult onset hypothyroidism: Continue current dose of thyroid hormone (6) Anemia: Patient has evidence of acute postoperative blood loss anemia, with hemoglobin decreasing to 8.4 1 day postoperative. On postoperative day #2 it is 8.1. This is overall stable. No need for transfusion currently. Plan Hypertension. Norvasc was held yesterday secondary to lower blood pressures. I am going to reinstitute this today at 5 mg daily. Order written. Other medical problems as outlined in past medical history Eliquis is being used for DVT prophylaxis Thank you for this consultation. We will continue to follow along with you Attestations Medical Necessity Statement*: As per primary Coding Level of Care Code 27599 Moderate MDM includes number and complexity of problems actively addressed during encounter and amount and/or complexity of data reviewed/ordered as docum ented Diagnoses S/P total hip arthroplasty Z96.649 COPD (chronic obstructive pulmonary disease) J44.9 Macrocytosis D75.89 Fibromyalgia M79.7 Adult onset hypothyroidism E03.8 Anemia D64.9 Time Spent (min) 21
[2022-10-16] MEDS: apixaban 5 mg Tablet 2.5 MG PO ×2 (08:21→17:41)
[2022-10-16] MEDS: amlodipine 5 mg Tablet PO (08:21)
[2022-10-16] MEDS: calcium carb-vit d 600mg/400unit 1 Tablet 1 EACH PO ×2 (08:21→17:40)
[2022-10-16] MEDS: multivitamin therapeutic Tablet 1 TAB PO (08:21)
[2022-10-16] MEDS: levothyroxine 112 mcg Tablet PO (08:21)
[2022-10-16] MEDS: chlorhexidine gluconate 0.12% Btl 473 mL 30 ML MUCOUS MEM ×4 (08:22→22:00)
[2022-10-16] MEDS: iron polysaccharide complex 150 mg Capsule PO ×2 (08:22→17:41)
[2022-10-16] MEDS: sennosides-docusate Tablet 2 TAB PO ×2 (08:22→17:40)
[2022-10-16] MEDS: ketorolac 30 mg/mL INJ 15 MG IVP (23:18)
[2022-10-17] VITALS (9 sets, daily range): BP systolic 104–113; BP diastolic 51–68; PULSE 72–84; RESP 18–20; TEMP 36.3–37; O2SAT 90–97
[2022-10-17] MEDS: oxyCODONE 5 mg IR Tab/Cap PO (02:06)
[2022-10-17 05:26] LABS: Basophils # 0.1 10^3/uL (0.0-0.1); Basophils % 1.2 %; Eosinophils # 0.5 10^3/uL (0.0-0.8); Eosinophils % 6.4 %; Hematocrit 23.9 % (37.0-47.0); Hemoglobin 7.7 g/dL (11.5-15.3); Lymphocytes # 1.2 10^3/uL (0.8-4.8); Lymphocytes % 14.6 %; Mean Corpuscular HGB Conc 32.2 g/dL (30.0-36.0); Mean Corpuscular Hemoglobin 33.9 pg (28.0-34.0); Mean Corpuscular Volume 105.3 fl (81-99); Monocytes # 0.8 10^3/uL (0.2-0.9); Monocytes % 10.3 %; Neutrophils # 5.38 10^3/uL (1.8-7.7); Neutrophils % 66.8 %; Nucleated Red Blood Cells % 0.5 %; Platelet Count 237 10^3/cmm (130-400); Red Blood Count 2.27 10^6/uL (4.1-5.3); Red Cell Distribution Width 16.7 % (12.1-15.1); White Blood Count 8.1 10^3/uL (4.0-10.0)
[2022-10-17 05:44] LABS: Anion Gap 13.9 (5-19); Blood Urea Nitrogen 15 mg/dL (8-23); Calcium 8.5 mg/dL (8.5-10.5); Carbon Dioxide 25 mmol/L (22-29); Chloride 103 mmol/L (98-107); Glomerular Filtration Rate 62.6 mL/min (90-130); Glucose 132 mg/dL (65-115); Osmolality Calculated 289 mOsm/kg (285-295); Potassium 3.9 mmol/L (3.5-5.1); Sodium 138 mmol/L (136-145)
[2022-10-17] MEDS: ketorolac 30 mg/mL INJ 15 MG IVP ×2 (06:02→12:34)
[2022-10-17] MEDS: venlafaxine ER (24HR) 150 mg Capsule PO (06:08)
[2022-10-17] MEDS: topiramate 100 mg Tablet PO (06:08)
--- NOTE | 2022-10-17 07:28 | P.PN_ITS ---
Subjective Subjective: Patient seen and examined this morning. Overall is making steady improvements she did a little better with therapy we will continue to work with them as she does have some decreased mobility and would benefit from further extensive and close monitored therapy. We will need to recheck her hemoglobin tomorrow hemoglobin 7.7 today she currently is asymptomatic with no complaints of lightheadedness or faintness when getting up. Work with PT OT today. Vitals/I&O/Wt Last Vital Signs Temp 98.6 F 10/17/22 04:00 Pulse 79 10/17/22 04:00 Resp 18 10/17/22 04:00 BP 104/55 10/17/22 04:00 Pulse Ox 90 10/17/22 04:00 O2 Del Method Room Air 10/16/22 20:00 O2 Flow Rate 8 10/14/22 10:50 10/16/22 10/17/22 10/17/22 22:59 06:59 14:59 Intake Total 780 / 1020 480 / 1500 Output Total 400 / 400 Balance 380 / 620 480 / 1100 Physical Exam Narrative: Examination of the right hip demonstrates Silverlon dressing on in place clean dry and intact. Patient has normal postoperative swelling to the right hip/thigh. Normal ecchymosis. Patient compartments are soft and compressible. She is able to perform a straight leg raise in bed. She is able to form knee extension. We able to wiggle toes plantarflex and dorsiflex ankle. Distal pulses are palpable toes are warm well-perfused brisk capillary refill less than 2 seconds. Bandage to the left iliac wing is clean dry and intact Urinary Catheter Management: [place]: Cath Placed During This Visit: yes, but has since been removed by the nurse Reason for Continuing Indwelling Catheter: Decision to DC Catheter Urinary Catheter Date of Insertion: 10/14/22 Urinary Catheter Time of Insertion: 07:35 Date Urinary Catheter Removed: 10/15/22 Time Urinary Catheter Discontinued: 13:29 Data 10/17/22 05:03 10/17/22 05:03 A&P Assessment and plan (1) S/P total hip arthroplasty: (2) Anemia: Plan Pain control Weight-bear as tolerated right lower extremity Anterior hip precautions PT/OT DVT prophylaxis A.m. labs reviewed hemoglobin 7.7 today she continues to remain asymptomatic and vital signs are stable and afebrile. Orthopedics will continue to monitor. Recommend continued monitoring and and hospitalization secondary to patient s till requiring IV pain medication as well as needing extensive close monitored physical therapy this patient prior to surgery had not truly ambulated according to her for the past several months given her pain. Would like to continue to monitor and will reevaluate tomorrow Change dressing as needed Attestations Medical Necessity Statement*: Ongoing care postoperative right total hip arthroplasty, patient's been slow to progress with therapy and requiring IV pain medication and extensively close monitored therapy for mobilization and safety. Coding Level of Care Code Acute Code for Chg Fwd Diagnoses S/P total hip arthroplasty Z96.649 Anemia D64.9 Time Spent (min) 25
[2022-10-17] MEDS: apixaban 5 mg Tablet 2.5 MG PO ×2 (08:34→17:50)
[2022-10-17] MEDS: calcium carb-vit d 600mg/400unit 1 Tablet 1 EACH PO ×2 (08:34→17:50)
[2022-10-17] MEDS: amlodipine 5 mg Tablet PO (08:34)
[2022-10-17] MEDS: levothyroxine 112 mcg Tablet PO (08:34)
[2022-10-17] MEDS: iron polysaccharide complex 150 mg Capsule PO ×2 (08:34→17:50)
[2022-10-17] MEDS: multivitamin therapeutic Tablet 1 TAB PO (08:34)
[2022-10-17] MEDS: sennosides-docusate Tablet 2 TAB PO ×2 (08:34→17:50)
[2022-10-17] MEDS: chlorhexidine gluconate 0.12% Btl 473 mL 30 ML MUCOUS MEM ×4 (08:36→20:05)
--- NOTE | 2022-10-17 15:06 | P.PN_ITS ---
Subjective Subjective: Hospital course, labs appreciated. Examination patient sitting up in chair. Worked with physical therapy. States pain is then controlled but getting tired after physical therapy. Denies any nausea, vomiting, headache. Has remained hemodynamically stable and afebrile. Medications: Reviewed: Yes Vitals/I&O/Wt Last Vital Signs Temp 98 F 10/17/22 11:31 Pulse 75 10/17/22 11:31 Resp 18 10/17/22 11:31 BP 113/59 10/17/22 11:31 Pulse Ox 94 10/17/22 11:31 O2 Del Method Room Air 10/17/22 11:31 O2 Flow Rate 8 10/14/22 10:50 10/17/22 10/17/22 10/17/22 06:59 14:59 22:59 Intake Total 480 / 1500 720 / 720 Balance 480 / 1100 720 / 720 Physical Exam Narrative: General exam no distress Cardiovascular regular rate and rhythm without murmur, no S3 or S4 Lungs clear no wheezing or crackles Extremities no cyanosis clubbing or edema, right hip, lateral side, with dressing which is clean and dry. She is able to move her foot distally without difficulty and no foot drop Urinary Catheter Management: [place]: Cath Placed During This Visit: yes, but has since been removed by the nurse Reason for Continuing Indwelling Catheter: Decision to DC Catheter Urinary Catheter Date of Insertion: 10/14/22 Urinary Catheter Time of Insertion: 07:35 Date Urinary Catheter Removed: 10/15/22 Time Urinary Catheter Discontinued: 13:29 Data 10/17/22 05:03 10/17/22 05:03 A&P Assessment and plan (1) S/P total hip arthroplasty: Postoperative from right hip total arthroplasty. Pain control, PT, anticoagulation as per orthopedic team. Hemoglobin stable. (2) COPD (chronic obstructive pulmonary disease): DuoNeb as needed will be initiated. No acute exacerbation. Remains on room air. (3) Macrocytosis: Patient reports past history of macrocytosis. Appreciate recent TSH and B12. Folate within normal limits. Patient to follow-up as an outpatient with PCP possibility of myelodysplasia (4) Fibromyalgia: Continue current medications (5) Adult onset hypothyroidism: Continue current dose of thyroid hormone (6) Anemia: Postoperative anemia. Hemoglobin stable. Target hemoglobin more than 7. Continue to monitor daily for now. Continue with oral iron supplementation. Plan Hypertension: Goal blood pressure less than 140/90 mmHg. Continue with home dose of amlodipine 5 mg daily. Eliquis is being used for DVT prophylaxis Discharge plan: Plan to discharge to SNF for further rehabilitation. Most likely discharge on Wednesday. Thank you for this consultation. We will continue to follow along with you Attestations Medical Necessity Statement*: Requires further hospitalization for post ORIF care while safe discharge planning discharge. Diagnoses S/P total hip arthroplasty Z96.649 COPD (chronic obstructive pulmonary disease) J44.9 Macrocytosis D75.89 Fibromyalgia M79.7 Adult onset hypothyroidism E03.8 Anemia D64.9
[2022-10-17] MEDS: TRAMadol 50 mg Tablet PO (16:07)
[2022-10-18] VITALS (11 sets, daily range): BP systolic 103–110; BP diastolic 50–66; PULSE 71–75; RESP 16–20; TEMP 36.3–37.1; O2SAT 90–97
[2022-10-18] MEDS: oxyCODONE 5 mg IR Tab/Cap PO ×3 (01:06→17:25)
[2022-10-18] MEDS: venlafaxine ER (24HR) 150 mg Capsule PO (06:21)
[2022-10-18] MEDS: topiramate 100 mg Tablet PO (06:21)
[2022-10-18] MEDS: TRAMadol 50 mg Tablet PO ×2 (06:22→10:56)
[2022-10-18] MEDS: sennosides-docusate Tablet 2 TAB PO ×2 (08:39→17:23)
[2022-10-18] MEDS: calcium carb-vit d 600mg/400unit 1 Tablet 1 EACH PO ×2 (08:39→17:23)
[2022-10-18] MEDS: multivitamin therapeutic Tablet 1 TAB PO (08:39)
[2022-10-18] MEDS: levothyroxine 112 mcg Tablet PO (08:39)
[2022-10-18] MEDS: apixaban 5 mg Tablet 2.5 MG PO ×2 (08:39→17:23)
[2022-10-18] MEDS: iron polysaccharide complex 150 mg Capsule PO ×2 (08:39→17:23)
[2022-10-18] MEDS: chlorhexidine gluconate 0.12% Btl 473 mL 30 ML MUCOUS MEM ×3 (08:50→20:23)
[2022-10-18] MEDS: mupirocin oint 22 gm 1 APPLIC NASAL ×2 (08:50→17:24)
--- NOTE | 2022-10-18 09:52 | PC.SOCIAL ---
IMM Update Pg 2 of IMM updated and reviewed w/ patient. Copy provided and Copy dated, initialed and placed in chart.
--- NOTE | 2022-10-18 12:00 | P.PN_ITS ---
Subjective Subjective: Patient seen and evaluated this morning and patient doing well. Patient has made good strides with therapy. At this point time she is worked with case management and is planning on discharging to rehab. No issues overnight. Vitals/I&O/Wt Last Vital Signs Temp 97.3 F L 10/18/22 08:11 Pulse 74 10/18/22 08:11 Resp 16 10/18/22 08:39 BP 103/60 10/18/22 08:11 Pulse Ox 91 10/18/22 08:39 O2 Del Method Room Air 10/18/22 08:11 O2 Flow Rate 8 10/14/22 10:50 10/17/22 10/18/22 10/18/22 22:59 06:59 14:59 Intake Total 480 / 1200 480 / 480 Output Total 1000 / 1000 850 / 1850 Balance -520 / 200 -850 / -650 480 / 480 Physical Exam Narrative: Examination of the right hip demonstrates Silverlon dressing on in place clean dry and intact. Patient has normal postoperative swelling to the right hip/thigh. Normal ecchymosis. Patient compartments are soft and compressible. She is able to perform a straight leg raise in bed. She is able to form knee extension. We able to wiggle toes plantarflex and dorsiflex ankle. Distal pulses are palpable toes are warm well-perfused brisk capillary refill less than 2 seconds. Silverlon to the left iliac wing is clean dry and intact Urinary Catheter Management: [place]: Cath Placed During This Visit: yes, but has since been removed by the nurse Reason for Continuing Indwelling Catheter: Decision to DC Catheter Urinary Catheter Date of Insertion: 10/14/22 Urinary Catheter Time of Insertion: 07:35 Date Urinary Catheter Removed: 10/15/22 Time Urinary Catheter Discontinued: 13:29 Data 10/18/22 13:03 10/18/22 13:03 A&P Assessment and plan (1) S/P total hip arthroplasty: (2) Anemia: Plan Pain control Weight-bear as tolerated right lower extremity Anterior hip precautions PT/OT DVT prophylaxis A.m. labs reviewed hemoglobin 7.5 today she continues to remain asymptomatic and vital signs are stable and afebrile. Orthopedics will continue to monitor. Patient is progressed and made strides with therapy. At this point time in dis cussion with therapy as well as with case management patient elects to proceed with discharging to a rehab facility will likely get her into rehab facility tomorrow. Orthopedics will continue to follow along and reevaluate tomorrow plan for DC tomorrow. Change dressing as needed Attestations Medical Necessity Statement*: Ongoing care postoperative right total hip arthroplasty Coding Level of Care Code Acute Code for Chg Fwd Diagnoses S/P total hip arthroplasty Z96.649 Anemia D64.9 Time Spent (min) 15
[2022-10-18 13:11] LABS: Basophils # 0.1 10^3/uL (0.0-0.1); Basophils % 1.1 %; Eosinophils # 0.7 10^3/uL (0.0-0.8); Hematocrit 24.1 % (37.0-47.0); Hemoglobin 7.5 g/dL (11.5-15.3); Lymphocytes # 1.2 10^3/uL (0.8-4.8); Lymphocytes % 16.1 %; Mean Corpuscular HGB Conc 31.1 g/dL (30.0-36.0); Mean Corpuscular Hemoglobin 33.9 pg (28.0-34.0); Monocytes # 0.8 10^3/uL (0.2-0.9); Monocytes % 11.3 %; Neutrophils # 4.54 10^3/uL (1.8-7.7); Nucleated Red Blood Cells % 0.4 %; Platelet Count 326 10^3/cmm (130-400); Red Blood Count 2.21 10^6/uL (4.1-5.3); Red Cell Distribution Width 17.2 % (12.1-15.1); White Blood Count 7.3 10^3/uL (4.0-10.0)
[2022-10-18 13:36] LABS: Anion Gap 14.7 (5-19); Blood Urea Nitrogen 12 mg/dL (8-23); Calcium 8.4 mg/dL (8.5-10.5); Carbon Dioxide 24 mmol/L (22-29); Chloride 104 mmol/L (98-107); Glomerular Filtration Rate 71.8 mL/min (90-130); Glucose 107 mg/dL (65-115); Osmolality Calculated 288 mOsm/kg (285-295); Potassium 3.7 mmol/L (3.5-5.1); Sodium 139 mmol/L (136-145)
--- NOTE | 2022-10-18 14:14 | PM.PN ---
Subjective Subjective: No acute events overnight. Patient has remained hemodynamically stable and afebrile. Working well with physical therapy. No new complaints. Medications: Reviewed: Yes Vitals/I&O/Wt Last Vital Signs Temp 97.3 F L 10/18/22 12:26 Pulse 71 10/18/22 12:26 Resp 20 H 10/18/22 12:26 BP 104/51 10/18/22 12:26 Pulse Ox 92 10/18/22 12:26 O2 Del Method Room Air 10/18/22 12:26 O2 Flow Rate 8 10/14/22 10:50 10/17/22 10/18/22 10/18/22 22:59 06:59 14:59 Intake Total 480 / 1200 960 / 960 Output Total 1000 / 1000 850 / 1850 Balance -520 / 200 -850 / -650 960 / 960 Physical Exam Narrative: General exam no distress Cardiovascular regular rate and rhythm without murmur, no S3 or S4 Lungs clear no wheezing or crackles Extremities no cyanosis clubbing or edema, right hip, lateral side, with dressing which is clean and dry. She is able to move her foot distally without difficulty and no foot drop Urinary Catheter Management: [place]: Cath Placed During This Visit: yes, but has since been removed by the nurse Reason for Continuing Indwelling Catheter: Decision to DC Catheter Urinary Catheter Date of Insertion: 10/14/22 Urinary Catheter Time of Insertion: 07:35 Date Urinary Catheter Removed: 10/15/22 Time Urinary Catheter Discontinued: 13:29 Data 10/18/22 13:03 10/18/22 13:03 A&P Assessment and plan (1) S/P total hip arthroplasty: Postoperative from right hip total arthroplasty. Pain control, PT, anticoagulation as per orthopedic team. Hemoglobin stable. (2) COPD (chronic obstructive pulmonary disease): DuoNeb as needed will be initiated. No acute exacerbation. Remains on room air. (3) Macrocytosis: Patient reports past history of macrocytosis. Appreciate recent TSH and B12. Folate within normal limits. Patient to follow-up as an outpatient with PCP possibility of myelodysplasia (4) Fibromyalgia: Continue current medications (5) Adult onset hypothyroidism: Continue current dose of thyroid hormone (6) Anemia: Postoperative anemia. Hemoglobin stable. Target hemoglobin more than 7. Continue to monitor daily for now. Continue with oral iron supplementation. Plan Hypertension: Goal blood pressure less than 140/90 mmHg. Continue with home dose of amlodipine 5 mg daily. Eliquis is being used for DVT prophylaxis Plan for the day: Continue with current medications. Hemodynamically stable. Repeat CBC in AM. Hemoglobin so far stable. Discharge plan: Plan to discharge to SNF for further rehabilitation. Most likely discharge on Wednesday. Thank you for this consultation. We will continue to follow along with you Attestations Medical Necessity Statement*: Requires further hospitalization for post-ORIF care while safe discharge planning is sought. Diagnoses S/P total hip arthroplasty Z96.649 COPD (chronic obstructive pulmonary disease) J44.9 Macrocytosis D75.89 Fibromyalgia M79.7 Adult onset hypothyroidism E03.8 Anemia D64.9
[2022-10-19] VITALS (7 sets, daily range): BP systolic 111–124; BP diastolic 57–79; PULSE 69–73; RESP 16–20; TEMP 36.6–37.1; O2SAT 91–97
[2022-10-19] MEDS: oxyCODONE 5 mg IR Tab/Cap PO (03:34)
[2022-10-19 04:56] LABS: Basophils # 0.1 10^3/uL (0.0-0.1); Basophils % 1.5 %; Eosinophils # 0.7 10^3/uL (0.0-0.8); Eosinophils % 11.5 %; Hematocrit 22.7 % (37.0-47.0); Hemoglobin 7.2 g/dL (11.5-15.3); Lymphocytes % 16.6 %; Mean Corpuscular HGB Conc 31.7 g/dL (30.0-36.0); Mean Corpuscular Volume 107.1 fl (81-99); Monocytes # 0.7 10^3/uL (0.2-0.9); Monocytes % 10.7 %; Neutrophils # 3.59 10^3/uL (1.8-7.7); Neutrophils % 58.7 %; Nucleated Red Blood Cells % 0.3 %; Platelet Count 335 10^3/cmm (130-400); Red Blood Count 2.12 10^6/uL (4.1-5.3); Red Cell Distribution Width 17.2 % (12.1-15.1); White Blood Count 6.1 10^3/uL (4.0-10.0)
[2022-10-19] MEDS: topiramate 100 mg Tablet PO (06:22)
[2022-10-19] MEDS: venlafaxine ER (24HR) 150 mg Capsule PO (06:22)
[2022-10-19 06:42] LABS: SARS Covid-2 Antigen negative (Negative)
[2022-10-19] MEDS: iron polysaccharide complex 150 mg Capsule PO (07:33)
--- NOTE | 2022-10-19 07:41 | P.PN_ITS ---
Subjective Subjective: Patient seen and examined this morning. Patient doing well she is progressed well with therapy she is ready for discharge to longterm facility today. Her pain is controlled medications. Postoperative swelling of the right thigh has continued to steadily improve. Her hemoglobin has maintained stability above 7 throughout her hospitalization and is 7.2 today. Her vital signs of been stable and afebrile and she denies any lightheadedness. Vitals/I&O/Wt Last Vital Signs Temp 98.8 F 10/19/22 04:27 Pulse 72 10/19/22 05:09 Resp 16 10/19/22 05:09 BP 111/70 10/19/22 04:27 Pulse Ox 93 10/19/22 05:09 O2 Del Method Room Air 10/19/22 05:09 O2 Flow Rate 8 10/14/22 10:50 10/18/22 10/19/22 10/19/22 22:59 06:59 14:59 Intake Total 480 / 1440 Output Total 4 / 4 Balance 476 / 1436 Physical Exam Narrative: Examination of the right hip demonstrates Silverlon dressing on in place clean dry and intact. Patient has normal postoperative swelling to the right hip/thigh. Normal ecchymosis. Patient compartments are soft and compressible. She is able to perform a straight leg raise in bed. She is able to form knee extension. We able to wiggle toes plantarflex and dorsiflex ankle. Distal pulses are palpable toes are warm well-perfused brisk capillary refill less than 2 seconds. Silverlon to the left iliac wing is clean dry and intact Urinary Catheter Management: [place]: Cath Placed During This Visit: yes, but has since been removed by the nurse Reason for Continuing Indwelling Catheter: Decision to DC Catheter Urinary Catheter Date of Insertion: 10/14/22 Urinary Catheter Time of Insertion: 07:35 Date Urinary Catheter Removed: 10/15/22 Time Urinary Catheter Discontinued: 13:29 Data 10/19/22 04:10 10/18/22 13:03 A&P Assessment and plan (1) S/P total hip arthroplasty: (2) Anemia: Plan Pain control Weight-bear as tolerated right lower extremity Anterior hip precautions PT/OT DVT prophylaxis A.m. labs reviewed hemoglobin 7.2 today she continues to remain asymptomatic and vital signs are stable and afebrile. Change dressing as needed, may remove Silverlon dressing after 7 days and may shower over Prineo mesh glue dressing Patient stable for discharge from orthopedic standpoint to longterm facility. We will have patient be seen evaluated by internal medicine today prior to discharge. her hemoglobin is 7.2 today she has no heart issues her vital signs are stable and afebrile and she is asymptomatic. Patient will follow-up in the orthopedic office in 2 weeks. Patient is appropriate discharge directions as well as pain medication and DVT prophylaxis postoperatively. patient understands if she has any questions or concerns she can contact the office. Attestations Medical Necessity Statement*: Ongoing care right total hip arthroplasty postop care Coding Level of Care Code Acute Code for Chg Fwd Diagnoses S/P total hip arthroplasty Z96.649 Anemia D64.9 Time Spent (min) 20
[2022-10-19] MEDS: TRAMadol 50 mg Tablet PO (08:24)
[2022-10-19] MEDS: levothyroxine 112 mcg Tablet PO (08:25)
[2022-10-19] MEDS: calcium carb-vit d 600mg/400unit 1 Tablet 1 EACH PO (08:25)
[2022-10-19] MEDS: apixaban 5 mg Tablet 2.5 MG PO (08:26)
[2022-10-19] MEDS: multivitamin therapeutic Tablet 1 TAB PO (08:26)
[2022-10-19] MEDS: amlodipine 5 mg Tablet PO (08:27)
[2022-10-19] MEDS: sennosides-docusate Tablet 2 TAB PO (08:27)
[2022-10-19] MEDS: chlorhexidine gluconate 0.12% Btl 473 mL 30 ML MUCOUS MEM ×2 (08:28→12:46)
--- NOTE | 2022-10-19 12:08 | PM.PN ---
Subjective Subjective: She reports she is doing well. She denies chest pain or shortness of breath. She did get somewhat tired getting up into and out of the chair. Denies any bloody or dark black stools. No abdominal pain or discomfort, no indigestion or dyspepsia. Medications: Reviewed: Yes Vitals/I&O/Wt Last Vital Signs Temp 97.9 F 10/19/22 11:43 Pulse 69 10/19/22 11:43 Resp 16 10/19/22 11:43 BP 124/57 10/19/22 11:43 Pulse Ox 96 10/19/22 11:43 O2 Del Method Room Air 10/19/22 11:43 O2 Flow Rate 8 10/14/22 10:50 10/18/22 10/19/22 10/19/22 22:59 06:59 14:59 Intake Total 480 / 1440 Output Total Balance 476 / 1436 Physical Exam Const: COMMON NORMALS: patient oriented x3 and alert GENERAL APPEARANCE: cooperative ORIENTATION/CONSCIOUSNESS: Yes awake OTHER: Pleasant, conversant. HENMT: COMMON NORMALS: oropharynx normal Neck/C-Spine: COMMON NORMALS: no JVD Resp: COMMON NORMALS: normal respiratory effort and clear to auscultation bilaterally AUSCULTATION: clear to auscultation bilaterally Cardio: COMMON NORMALS: no JVD, regular rhythm, S1 normal heart sound present, S2 normal heart sound present and No murmurs present (Cardio) RHYTHM: regular rhythm HEART SOUNDS: S1 normal heart sound present and S2 normal heart sound present GI: COMMON NORMALS: Normal to inspection, nondistended, normoactive bowel sounds present, Soft to palpation and non-tender PALPATION: Yes Soft to palpation Extremity: COMMON NORMALS: no joint enlargement and no pedal edema OTHER: Right hip minimal if any swelling. No bruising. No bleeding at the wound site. Clean dressing in place, no surrounding erythema or tenderness. Neuro: COMMON NORMALS: patient oriented x3 and moves all extremities SENSORIUM/ORIENTATION: Yes alert Skin: COMMON NORMALS: no rashes or lesions noted GENERAL SKIN EXAM: no rashes or lesions noted Urinary Catheter Management: [place]: Cath Placed During This Visit: yes, but has since been removed by the nurse Reason for Continuing Indwelling Catheter: Decision to DC Catheter Urinary Catheter Date of Insertion: 10/14/22 Urinary Catheter Time of Insertion: 07:35 Date Urinary Catheter Removed: 10/15/22 Time Urinary Catheter Discontinued: 13:29 Data 10/19/22 04:10 10/18/22 13:03 A&P Assessment and plan (1) Anemia: Discussed with her some additional worsening anemia hemoglobin down to 7.2 close to cutoff for transfusion, her, given she has been having some symptoms of tiredness, and downtrend, as well as anticoagulation for VTE prevention discussed with her options, consideration for transfusion of 1 unit RBC which she is considered and initially wanted to proceed with, but subsequently changed her mind wanting to pursue more conservative approach first, reassess blood counts in 2 days, consider if the transfusion will be still needed. Please follow-up CBC on Saturday 10/21. She denies any NSAID use currently. Please avoid NSAIDs. In the past had some issues when taking ibuprofen but has since discontinued it. Denies any dark or bloody stools. No dyspepsia. In case of persistent anemia, consider further evaluation with endoscopy. Please assess chronic macrocytic anemia. Further considered differential diagnosis including mild dysplasia. (2) S/P total hip arthroplasty: She is being discharged to continue rehabilitation at [facility]. Discussed with her anemia additionally as above. Postoperative from right hip total arthroplasty. (3) COPD (chronic obstructive pulmonary disease): Does not appear decompensated my assessment. DuoNeb as needed will be initiated. No acute exacerbation. Remains on room air. (4) Macrocytosis: Patient reports past history of macrocytosis. Appreciate recent TSH and B12. Folate within normal limits. Patient to follow-up as an outpatient with PCP possibility of myelodysplasia (5) Fibromyalgia: Continue current medications (6) Adult onset hypothyroidism: Continue current dose of thyroid hormone Plan Hypertension: Goal blood pressure less than 140/90 mmHg. Continue with home dose of amlodipine 5 mg daily. Eliquis is being used for DVT prophylaxis Attestations Medical Necessity Statement*: Continue rehabilitation at [facility] with follow-up blood counts. Diagnoses Anemia D64.9 S/P total hip arthroplasty Z96.649 COPD (chronic obstructive pulmonary disease) J44.9 Macrocytosis D75.89 Fibromyalgia M79.7 Adult onset hypothyroidism E03.8
--- NOTE | 2022-10-19 12:44 | PM.DCS ---
Discharge Providers Date of Admission: 10/15/22 19:18 Date of Discharge: October 19, 2022 Attending Provider at Admission: Matthew Weston DO Attending Provider at Discharge: Matthew Weston DO Consults: Hospitalist?internal medicine Dr. Mueller Primary Care Provider: JACK Tillman Diagnoses at Discharge Discharge Diagnosis (1) S/P total hip arthroplasty: Status: Acute (2) Anemia: Status: Acute (3) COPD (chronic obstructive pulmonary disease): Status: Acute (4) Macrocytosis: Status: Inactive (5) Fibromyalgia: Status: Acute (6) Adult onset hypothyroidism: Status: Acute Reason for Visit Reason for Visit: M16.11 Brief History: Right total hip arthroplasty Hospital Course Hospital Course Patient was brought to the hospital through the preoperative holding area with plan for right total hip arthroplasty for right hip degenerative joint disease. Once cleared by anesthesia for surgery subsequently was taken back to the operative suite underwent spinal anesthesia and then underwent right total hip arthroplasty with Manny robotic assistance without any complications.? Patient was then subsequently taken back to PACU in stable condition recovering well.? Once recovered, patient was then subsequently admitted to the floor postoperatively.? Internal medicine was consulted for medical management assistance.? Patient weightbearing as tolerated to the right lower extremity, anterior hip precautions.? PT/OT.? Pain control.? DVT prophylaxis.? Postoperative antibiotics and TXA.? This dressing was change as needed.? Internal medicine was on board and appreciate their medical management and assistance.Pt was determined on postoperative day 5 the patient was stable for discharge from orthopedic as well as internal medicine standpoint.? Patient's labs were monitored daily. Patient had a downtrending hemoglobin but remained stable and was asymptomatic and vital signs stable and afebrile. Patient will receive appropriate pain medication as well as DVT prophylaxis postoperatively.? Appropriate discharge instructions as well.? Patient was then discharged in stable condition. Patient be discharged to rehab facility.? Pt will follow-up with Dr. Weston in the office in 2 weeks.? Patient understands and agrees with current plan.? All questions answered.? Understands there is any issues or concerns and contact the office. Physical Exam Narrative: Examination of the right hip demonstrates Silverlon dressing on in place clean dry and intact. Patient has normal postoperative swelling to the right hip/thigh. Normal ecchymosis. Patient compartments are soft and compressible. She is able to perform a straight leg raise in bed. She is able to form knee extension. We able to wiggle toes plantarflex and dorsiflex ankle. Distal pulses are palpable toes are warm well-perfused brisk capillary refill less than 2 seconds. Silverlon to the left iliac wing is clean dry and intact Urinary Catheter Management: [place]: Cath Placed During This Visit: yes, but has since been removed by the nurse Reason for Continuing Indwelling Catheter: Decision to DC Catheter Urinary Catheter Date of Insertion: 10/14/22 Urinary Catheter Time of Insertion: 07:35 Date Urinary Catheter Removed: 10/15/22 Time Urinary Catheter Discontinued: 13:29 Discharge Data Studies Completed and Pending Completed Studies During Hospitalization Category Date Time Status XR hip RT 1V wo/w pel [id number] Routine Exams 10/14/22 15:19 Completed XR hip RT 2-3V wo/w pel* [id number] Routine Exams 10/14/22 11:12 Completed Pending at discharge Category Date Time Status Leukocyte Reduced RBC Stat Lab 10/19/22 12:18 Received Type and Screen Stat Lab 10/19/22 12:18 Received Radiology Impressions Hip/Pelvis X-Ray 10/14/22 11:12 IMPRESSION: 1. Right total hip arthroplasty in excellent position. Hip X-Ray 10/14/22 15:19 IMPRESSION: Intraoperative postreduction imaging of the RIGHT hip dislocation. Femoral head normally situated with respect to the acetabular component after successful reduction. No lateral projection. Laboratory Results WBC 6.1 10^3/uL (4.0-10.0) 10/19/22 04:10 RBC 2.12 10^6/uL (4.1-5.3) L 10/19/22 04:10 Hgb 7.2 g/dL (11.5-15.3) L 10/19/22 04:10 Hct 22.7 % (37.0-47.0) L 10/19/22 04:10 MCV 107.1 fl (81-99) H 10/19/22 04:10 MCH 34.0 pg (28.0-34.0) 10/19/22 04:10 MCHC 31.7 g/dL (30.0-36.0) 10/19/22 04:10 RDW 17.2 % (12.1-15.1) H 10/19/22 04:10 Plt Count 335 10^3/cmm (130-400) 10/19/22 04:10 MPV 11.0 fL (7.4-10.4) H 10/19/22 04:10 Neut % (Auto) 58.7 % 10/19/22 04:10 Lymph % (Auto) 16.6 % 10/19/22 04:10 Baker % (Auto) 10.7 % 10/19/22 04:10 Eos % (Auto) 11.5 % 10/19/22 04:10 Baso % (Auto) 1.5 % 10/19/22 04:10 Neut # (Auto) 3.59 10^3/uL (1.8-7.7) 10/19/22 04:10 Lymph # (Auto) 1.0 10^3/uL (0.8-4.8) 10/19/22 04:10 Baker # (Auto) 0.7 10^3/uL (0.2-0.9) 10/19/22 04:10 Eos # (Auto) 0.7 10^3/uL (0.0-0.8) 10/19/22 04:10 Baso # (Auto) 0.1 10^3/uL (0.0-0.1) 10/19/22 04:10 Nucleated RBC % (auto) 0.3 % 10/19/22 04:10 Nucleated RBCs # 0.0 /100WBC 10/19/22 04:10 Sodium 139 mmol/L (136-145) 10/18/22 13:03 Potassium 3.7 mmol/L (3.5-5.1) 10/18/22 13:03 Chloride 104 mmol/L (98-107) 10/18/22 13:03 Carbon Dioxide 24 mmol/L (22-29) 10/18/22 13:03 Anion Gap 14.7 (5-19) 10/18/22 13:03 BUN 12 mg/dL (8-23) 10/18/22 13:03 Creatinine 0.8 mg/dL (0.5-0.9) 10/18/22 13:03 GFR Calculation 71.8 mL/min (90-130) L 10/18/22 13:03 Glucose 107 mg/dL (65-115) 10/18/22 13:03 Calculated Osmolality 288 mOsm/kg (285-295) 10/18/22 13:03 Calcium 8.4 mg/dL (8.5-10.5) L 10/18/22 13:03 Folate > 20.0 ng/mL (4.8-37.3) 10/15/22 04:35 Urine Color Dark yellow (Yellow) 10/14/22 05:55 Urine Appearance Cloudy (CLEAR) A 10/14/22 05:55 Urine pH 5 (5-7) 10/14/22 05:55 Ur Specific Pound 1.025 (1.005-1.030) 10/14/22 05:55 Urine Protein Trace (Negative) 10/14/22 05:55 Urine Glucose (UA) Norm (Normal) 10/14/22 05:55 Urine Ketones 1+ (Negative) H 10/14/22 05:55 Urine Blood Neg (Negative) 10/14/22 05:55 Urine Nitrate Negative (Negative) 10/14/22 05:55 Urine Bilirubin 1+ (Negative) H 10/14/22 05:55 Urine Urobilinogen 1 mg/dL (Negative) H 10/14/22 05:55 Ur Leukocyte Esterase Negative (Negative) 10/14/22 05:55 Urine RBC None /hpf (0-2) 10/14/22 05:55 Urine WBC None /hpf (0-5) 10/14/22 05:55 Ur Squamous Epith Cells 15-25 /hpf (0-5) H 10/14/22 05:55 Calcium Oxalate Crystal 10-15 /hpf H 10/14/22 05:55 Amorphous Sediment Not Reportable 10/14/22 05:55 Urine Bacteria 1+ /hpf (NONE) H 10/14/22 05:55 Urine Mucus 3+ /hpf 10/14/22 05:55 SARS-CoV-2 Ag (Rapid) negative (Negative) 10/19/22 06:00 Blood Type A Positive 10/14/22 06:20 Rho(D) Type Positive 10/14/22 06:20 Antibody Screen Negative 10/14/22 06:20 Vitals Last Vital Signs Temp 97.9 F 10/19/22 11:43 Pulse 69 10/19/22 11:43 Resp 16 10/19/22 11:43 BP 124/57 10/19/22 11:43 Pulse Ox 96 10/19/22 11:43 O2 Del Method Room Air 10/19/22 11:43 O2 Flow Rate 8 10/14/22 10:50 Discharge Plan Discharge Patient Disposition: Xfer SNF Condition: Stable Prescriptions: New Eliquis 2.5 mg tablet 2.5 mg PO BID 35 Days Qty: 70 0RF ondansetron 4 mg tablet,disintegrating 4 mg PO DAILY 5 Days Qty: 5 0RF oxycodone 5 mg tablet 5 mg PO Q6H PRN (Reason: pain) 7 Days Qty: 28 0RF calcium carbonate-vitamin D3 600 mg-10 mcg (400 unit) Tablet 1 tab PO BID 30 Days Qty: 60 0RF Colace 100 mg capsule 100 mg PO DAILY PRN (Reason: constipation) 10 Days Qty: 10 0RF Continued topiramate [Topamax] 50 mg tablet 100 mg PO QAM multivitamin Tablet 1 tab PO QAM amlodipine 5 mg tablet 5 mg PO DAILY venlafaxine [Effexor XR] 75 mg capsule,extended release 24hr 150 mg PO QAM levothyroxine 112 mcg tablet 112 mcg PO DAILY tramadol 50 mg tablet 50 mg PO Q8H PRN (Reason: pain) 7 Days Qty: 21 0RF cyanocobalamin (vitamin B-12) [Vitamin B-12] 250 mcg Tablet 250 mcg PO DAILY ascorbic acid (vitamin C) [Vitamin C] 500 mg Capsule, Extended Release 500 mg PO BID cholecalciferol (vitamin D3) [Vitamin D3] 25 mcg (1,000 unit) Tablet 25 mcg PO DAILY melatonin 5 mg Tablet 5 mg PO BEDTIME sennosides-docusate sodium [Senna-S] 8.6-50 mg tablet 1 tab-cap PO DAILY PRN (Reason: constipation) Qty: 30 0RF albuterol sulfate 90 mcg/actuation HFA aerosol inhaler 2 inh INHALATION Q4H PRN (Reason: shortness of breath or wheezing) Qty: 18 0RF Discharge Orders: Discharge Order (Routine); Ordered 10/19/22 Ordered By: Matthew Weston Referrals: Primary, provider [Other] - 4-7 days [facility] [Outside] Lachelle Lozoya FNP [Primary Care Provider] - (After rehab) Matthew Weston DO [Physician] - 11/02/22 1:15 pm () Discharge Diet: Advance as tolerated and Cardiac Patient Instructions: Precautions after Total Joint Replacement Surgery (DC), Anemia (GEN), Fall Prevention (GEN), Total Hip Replacement (DC), Opioid Safety Activity Restrictions/Additional Instructions: Orthopedic discharge instructions: Patient may weight-bear as tolerated to the right lower extremity Anterior hip precautions Patient should leave Silverlon dressing on in place for 7 days postoperatively after that may remove Silverlon dressing, leave Prineo (glued mesh dressing over the skin) on do not peel this off, you may shower over incision sites pat dry and redress with a dry dressing. No baths or soaks. Ice right hip as needed for pain and swelling Take pain medication as prescribed Take antinausea medication as needed Supplement with Citracal vitamin D for bone health and healing Take Eliquis as prescribed (blood thinner) Take Colace as needed for constipation Follow-up with primary care provider within 1 week of discharge Follow-up with Dr. Weston in the office in 2 weeks Contact the office for any questions or concerns Please follow-up CBC on Saturday 10/21 to reassess anemia. Please refer for Hemoccult test. Avoid NSAIDs. In case persistent anemia, positive Hemoccult, or dyspepsia, consider referral for endoscopic evaluation. Please assess regarding chronic macrocytic anemia. Continue to monitor blood pressures for hypertension, optimize control. Continue follow-up regarding other chronic conditions. Seek medical attention immediately in case of significant swelling of the right thigh, bleeding at the wound, feeling lightheaded or faint, or any other concerning symptoms. Discharge Attestations Time Spent in Discharge Care*: greater than 30 min Quality Metrics Clinical Quality Measures [ No reported AMI, CVA or VTE this stay] Coding Level of Care Code Acute Code for Chg Fwd Diagnoses S/P total hip arthroplasty Z96.649 Anemia D64.9 COPD (chronic obstructive pulmonary disease) J44.9 Macrocytosis D75.89 Fibromyalgia M79.7 Adult onset hypothyroidism E03.8 Time Spent (min) 35
== END 2022-10-19 13:00 | disposition skilled nursing facility (03) | DRG 470 ==
LOC: MEDSURG 10:22
PROVIDERS: Internal Medicine; Student in an Organized Health Care Education/Training Program; Admitting Provider Student in an Organized Health Care Education/Training Program; PCP Nurse Practitioner Family; Visit Provider Student in an Organized Health Care Education/Training Program
PROC: 0SR904Z Replacement of Right Hip Joint with Ceramic on Polyethylene Synthetic Substitute, Open Approach (ICD-10-PCS; CPT 27130; principal; 2022-10-14 07:00)
DX: M16.11 Unilateral primary osteoarthritis, right hip (principal); D62 Acute posthemorrhagic anemia; J44.9 Chronic obstructive pulmonary disease, unspecified; M79.7 Fibromyalgia; E03.9 Hypothyroidism, unspecified; Z79.891 Long term (current) use of opiate analgesic; Z79.51 Long term (current) use of inhaled steroids; E78.5 Hyperlipidemia, unspecified; Z87.891 Personal history of nicotine dependence; D75.89 Other specified diseases of blood and blood-forming organs; I10 Essential (primary) hypertension
CPT/HCPCS: 36415; 51702; 73501; 73502; 76000; 80048; 81001; 82746; 85025; 86850; 86900; 86920; 87426; 97110; 97116; 97161; 97166; 97530; 97535; C1713; C1776; G0378; J0131; J1100; J1885; J2250; J2704; J3010; J3370; J3490; J7030; J7050; J7120; P9045

== ENCOUNTER → 2022-11-02 12:56 | Outpatient (BNVA) | payer MEDICARE, SELFPAY | PROVIDERS: PCP Nurse Practitioner Family; Visit Provider Student in an Organized Health Care Education/Training Program | DX: Z96.641 Presence of right artificial hip joint (principal) | CPT/HCPCS: 73502; 99024 ==

== ENCOUNTER → 2022-12-15 12:57 | Outpatient (BNVA) | payer MEDICARE, SELFPAY | PROVIDERS: PCP Nurse Practitioner Family; Visit Provider Student in an Organized Health Care Education/Training Program | DX: Z96.641 Presence of right artificial hip joint | CPT/HCPCS: 73502; 99024 ==

== ENCOUNTER → 2023-01-19 13:21 | Outpatient (BNVA) | payer MEDICARE, SELFPAY | PROVIDERS: PCP Nurse Practitioner Family; Visit Provider Nurse Practitioner Family | DX: G35 Multiple sclerosis (principal); E55.9 Vitamin D deficiency, unspecified; Z13.6 Encounter for screening for cardiovascular disorders; E03.8 Other specified hypothyroidism; D64.9 Anemia, unspecified; R73.9 Hyperglycemia, unspecified; Z79.899 Other long term (current) drug therapy | CPT/HCPCS: 80053; 80061; 82306; 82607; 83036; 83550; 84443; 85025 ==

== ENCOUNTER 2023-03-09 06:00 | Outpatient (RCR) | payer MEDICARE, SELFPAY | END 2023-03-18 23:59 | disposition home or self-care (01) | LOC: TPT 06:00 | PROVIDERS: PCP Nurse Practitioner Family; Visit Provider Nurse Practitioner Family | DX: G35 Multiple sclerosis (principal) | CPT/HCPCS: 97110; 97163 ==

== ENCOUNTER → 2023-03-18 13:12 | Outpatient (BNVA) | payer MEDICARE, SELFPAY | PROVIDERS: PCP Nurse Practitioner Family; Visit Provider Physician Assistant | DX: M16.11 Unilateral primary osteoarthritis, right hip (principal); Z96.641 Presence of right artificial hip joint | CPT/HCPCS: 73502; 99213 ==

== ENCOUNTER 2023-03-19 06:00 | Outpatient (RCR) | payer MEDICARE, SELFPAY | END 2023-04-18 23:59 | disposition home or self-care (01) | LOC: TPT 06:00 | PROVIDERS: PCP Nurse Practitioner Family; Visit Provider Nurse Practitioner Family | DX: G35 Multiple sclerosis (principal) | CPT/HCPCS: 97110 ==

== ENCOUNTER → 2023-04-01 10:42 | Outpatient (BNVA) | payer MEDICARE, SELFPAY | PROVIDERS: PCP Nurse Practitioner Family; Visit Provider Physician Assistant | DX: M25.512 Pain in left shoulder (principal); M19.012 Primary osteoarthritis, left shoulder | CPT/HCPCS: 73030; 99213 ==

== ENCOUNTER 2023-04-19 06:00 | Outpatient (RCR) | payer MEDICARE, SELFPAY | END 2023-05-19 23:59 | disposition home or self-care (01) | LOC: TPT 06:00 | PROVIDERS: PCP Nurse Practitioner Family; Visit Provider Nurse Practitioner Family | DX: G35 Multiple sclerosis (principal) | CPT/HCPCS: 97110 ==

== ENCOUNTER → 2023-04-30 10:53 | Outpatient (BNVA) | payer MEDICARE, SELFPAY | PROVIDERS: PCP Nurse Practitioner Family; Visit Provider Nurse Practitioner Family | DX: R05.9 Cough, unspecified (principal); J10.1 Influenza due to other identified influenza virus with other respiratory manifestations | CPT/HCPCS: 87400; 87426 ==

== ENCOUNTER → 2023-05-14 08:25 | Outpatient (BNVA) | payer MEDICARE, SELFPAY | PROVIDERS: PCP Nurse Practitioner Family; Visit Provider Student in an Organized Health Care Education/Training Program | DX: M19.012 Primary osteoarthritis, left shoulder (principal) | CPT/HCPCS: 20610; 77002; 99214; J3301 ==

== ENCOUNTER 2023-05-20 06:00 | Outpatient (RCR) | payer MEDICARE, SELFPAY | END 2023-06-17 23:59 | disposition home or self-care (01) | LOC: TPT 06:00 | PROVIDERS: PCP Nurse Practitioner Family; Visit Provider Nurse Practitioner Family | DX: G35 Multiple sclerosis (principal) | CPT/HCPCS: 97110 ==

== ENCOUNTER → 2023-06-17 09:34 | Outpatient (BNVA) | payer MEDICARE, SELFPAY | PROVIDERS: PCP Nurse Practitioner Family; Visit Provider Physician Assistant | DX: Z96.641 Presence of right artificial hip joint (principal) | CPT/HCPCS: 73502; 99213 ==

== ENCOUNTER → 2023-08-17 07:59 | Outpatient (BNVA) | payer MEDICARE, SELFPAY | PROVIDERS: PCP Nurse Practitioner Family; Visit Provider Student in an Organized Health Care Education/Training Program | DX: M19.012 Primary osteoarthritis, left shoulder (principal) | CPT/HCPCS: 99213 ==

== ENCOUNTER → 2023-08-23 11:10 | Outpatient (BNVA) | payer MEDICARE, SELFPAY | PROVIDERS: PCP Nurse Practitioner Family; Visit Provider Nurse Practitioner Family | DX: L98.9 Disorder of the skin and subcutaneous tissue, unspecified (principal); E03.8 Other specified hypothyroidism; R73.9 Hyperglycemia, unspecified; E78.5 Hyperlipidemia, unspecified; F41.9 Anxiety disorder, unspecified; F32.A Depression, unspecified; I10 Essential (primary) hypertension; Z78.9 Other specified health status | CPT/HCPCS: 80053; 80061; 83036; 84439; 84443; 85025 ==

== ENCOUNTER → 2023-09-02 07:53 | Outpatient (BNVA) | payer MEDICARE, SELFPAY | PROVIDERS: PCP Nurse Practitioner Family; Visit Provider Nurse Practitioner Family | DX: D48.5 Neoplasm of uncertain behavior of skin (principal); D22.39 Melanocytic nevi of other parts of face; L57.0 Actinic keratosis; D36.14 Benign neoplasm of peripheral nerves and autonomic nervous system of thorax; L57.8 Other skin changes due to chronic exposure to nonionizing radiation; L81.4 Other melanin hyperpigmentation; L82.1 Other seborrheic keratosis | CPT/HCPCS: 11102; 17000; 99203 ==

== ENCOUNTER → 2023-09-21 11:14 | Outpatient (BNVA) | payer MEDICARE, SELFPAY | PROVIDERS: PCP Nurse Practitioner Family; Visit Provider Nurse Practitioner Family | DX: B07.8 Other viral warts (principal); L57.8 Other skin changes due to chronic exposure to nonionizing radiation | CPT/HCPCS: 17110; 99213 ==

== ENCOUNTER → 2023-10-12 07:43 | Outpatient (BNVA) | payer MEDICARE, SELFPAY | PROVIDERS: PCP Nurse Practitioner Family; Visit Provider Physician Assistant | DX: Z96.641 Presence of right artificial hip joint (principal) | CPT/HCPCS: 73502; 99213 ==

== ENCOUNTER → 2023-11-04 07:16 | Outpatient (BNVA) | payer MEDICARE, SELFPAY | PROVIDERS: PCP Nurse Practitioner Family; Visit Provider Student in an Organized Health Care Education/Training Program | DX: M19.012 Primary osteoarthritis, left shoulder (principal) | CPT/HCPCS: 20610; 77002; 99213; J3301 ==

== ENCOUNTER → 2023-11-30 11:01 | Outpatient (BNVA) | payer MEDICARE, SELFPAY | PROVIDERS: PCP Nurse Practitioner Family; Visit Provider Nurse Practitioner Family | DX: B07.8 Other viral warts (principal); L57.8 Other skin changes due to chronic exposure to nonionizing radiation | CPT/HCPCS: 17110; 99213 ==

== ENCOUNTER → 2023-12-31 08:10 | Outpatient (BNVA) | payer MEDICARE, SELFPAY | PROVIDERS: PCP Nurse Practitioner Family; Visit Provider Nurse Practitioner Family | DX: B07.8 Other viral warts (principal); L57.8 Other skin changes due to chronic exposure to nonionizing radiation; L85.8 Other specified epidermal thickening | CPT/HCPCS: 17110; 99213 ==

== ENCOUNTER 2024-01-05 12:13 | Outpatient (CLI) | payer MEDICARE, SELFPAY ==
--- NOTE | 2024-01-05 13:00 | MM_ITS ---
WS: [id number] BILATERAL 3D TOMOSYNTHESIS DIGITAL SCREENING MAMMOGRAPHY WITH CAD CLINICAL INFORMATION: Z12.39 - Encounter for other screening for malignant neop... HISTORY: Screening mammogram. No current complaints. COMPARISON: 2021 TECHNIQUE: Bilateral CC and MLO views. FINDINGS: Scattered fibroglandular densities bilaterally. No suspicious focal mass, asymmetry, calcifications, or architectural distortion. No evidence of malignancy. Punctate and lucent centered calcifications. MM/MM [facility] tomosynthesis [id number] IMPRESSION: DENSITY: There are scattered areas of fibroglandular density. BI-RADS: 2 - Benign. FOLLOW UP: 1 Year Follow-up Recommend return to annual screening mammography.
--- NOTE | 2024-01-05 13:30 | XR_ITS ---
WS: [id number] DEXA (DUAL ENERGY X-RAY ABSORPTIOMETRY) Bone mineral density was performed using a [employer] machine. HISTORY: N95.1 - Menopausal and female climacteric states COMPARISON: None available. Lumbar spine BMD (L1-L4): 1.426 g/cm2 T score: 2.1 Z score: 3.2 Total hip BMD: Left: 1.037 (g/cm2). T score: 0.2 (no units) Z score: 1.2 (no units) Left forearm BMD: 0.826 g/cm2. T score: -0.6 Z score: 1.1 10 year probability of a major osteoporotic fracture is 7.2%. XR/XR DEXA axial skeleton* [id number] IMPRESSION: NORMAL BONE MINERAL DENSITY based upon the WHO classification for females.
== END 2024-01-05 12:14 | disposition home or self-care (01) ==
LOC: RAD 12:14
PROVIDERS: PCP Nurse Practitioner Family; Visit Provider Nurse Practitioner Family
DX: Z12.31 Encounter for screening mammogram for malignant neoplasm of breast (principal); Z13.820 Encounter for screening for osteoporosis; R92.323 Mammographic fibroglandular density, bilateral breasts; R92.1 Mammographic calcification found on diagnostic imaging of breast; N95.1 Menopausal and female climacteric states
CPT/HCPCS: 77063; 77067; 77080

== ENCOUNTER 2024-01-11 06:00 | Outpatient (CLI) | payer MEDICARE, SELFPAY | END 2024-01-11 06:01 | disposition home or self-care (01) | LOC: RAD 01-20 08:38 | PROVIDERS: PCP Nurse Practitioner Family; Visit Provider Nurse Practitioner Family | DX: E78.5 Hyperlipidemia, unspecified (principal); E03.8 Other specified hypothyroidism | CPT/HCPCS: 80053; 80061; 84439; 84443; 85025 ==

== ENCOUNTER 2024-01-24 09:52 | Outpatient (CLI) | payer MEDICARE, SELFPAY ==
--- NOTE | 2024-01-24 10:00 | CT_ITS ---
WS: [id number] LDCT LUNG CANCER SCREENING HISTORY: F17.210 - Nicotine dependence, cigarettes, uncomplicated TECHNIQUE: Axial imaging performed from the apices to 1 cm below the costophrenic angles. Coronal and sagittal reformats are submitted with axial MIP series. All CT scans at [facility] use at least one of these dose optimization techniques: automated exposure control; mA and/or kV adjustment per patient size (includes targeted exams where dose is matched to clinical indication); or iterativ e reconstruction. DLP: 61.50 mGy.cm DIvol: Mean CTDIvol: 1.20 (mGy) COMPARISON: None available. Diagnostic quality: Satisfactory Lungs: Pulmonary hyperexpansion with centrilobular emphysema. Pleural tag posterior RIGHT upper lobe. No mass or nodule. No endobronchial lesions. Heart: Normal size heart with no pericardial effusion.. Other findings: Mild atherosclerosis aorta. No mediastinal or hilar adenopathy. There are several sma ll RIGHT axillary lymph nodes. Normal fatty neeraj remain. Small hiatal hernia. CT/CT lung screening [id number] IMPRESSION: LUNG-RADS: 1-Negative FOLLOW UP: 12 Month: Continue annual screening with LDCT OTHER FINDINGS (S MODIFIER): None.
== END 2024-01-24 09:53 | disposition home or self-care (01) ==
LOC: RAD 09:53
PROVIDERS: PCP Nurse Practitioner Family; Visit Provider Nurse Practitioner Family
DX: Z12.2 Encounter for screening for malignant neoplasm of respiratory organs (principal); F17.210 Nicotine dependence, cigarettes, uncomplicated; J43.2 Centrilobular emphysema; J98.4 Other disorders of lung; K44.9 Diaphragmatic hernia without obstruction or gangrene
CPT/HCPCS: 71271

== ENCOUNTER → 2024-02-10 10:54 | Outpatient (BNVA) | payer MEDICARE, SELFPAY | PROVIDERS: PCP Nurse Practitioner Family; Visit Provider Nurse Practitioner Family | DX: B07.8 Other viral warts (principal); L57.8 Other skin changes due to chronic exposure to nonionizing radiation; L85.8 Other specified epidermal thickening | CPT/HCPCS: 17110; 99213 ==

== ENCOUNTER → 2024-02-15 08:34 | Outpatient (BNVA) | payer MEDICARE, SELFPAY | PROVIDERS: PCP Nurse Practitioner Family; Visit Provider Student in an Organized Health Care Education/Training Program | DX: M19.012 Primary osteoarthritis, left shoulder (principal) | CPT/HCPCS: 99213 ==

== ENCOUNTER → 2024-03-24 07:42 | Outpatient (BNVA) | payer MEDICARE, SELFPAY | PROVIDERS: PCP Nurse Practitioner Family; Visit Provider Student in an Organized Health Care Education/Training Program | DX: M19.012 Primary osteoarthritis, left shoulder (principal); Z71.89 Other specified counseling | CPT/HCPCS: 20610; 77002; J3301 ==

== ENCOUNTER → 2024-04-26 08:38 | Outpatient (BNVA) | payer MEDICARE, SELFPAY | PROVIDERS: PCP Nurse Practitioner Family; Visit Provider Nurse Practitioner Family | DX: L57.8 Other skin changes due to chronic exposure to nonionizing radiation (principal); L85.8 Other specified epidermal thickening; B07.8 Other viral warts | CPT/HCPCS: 17110; 99213 ==

== ENCOUNTER 2024-05-17 16:28 | Emergency (ER) | payer MEDICARE, SELFPAY ==
[2024-05-17] VITALS (7 sets, daily range): BP systolic 132–136; BP diastolic 61–80; PULSE 71–88; RESP 16–18; TEMP 37.2; O2SAT 91–95; BMI 26.2
--- NOTE | 2024-05-17 16:47 | XRR_ITS ---
PROCEDURE INFORMATION: Exam: XR Chest Exam date and time: 05/17/2024 5:11 PM Age: 68 years old Clinical indication: Cough and dyspnea; Additional info: Sob/cough TECHNIQUE: Imaging protocol: Radiologic exam of the chest. Views: 1 view. COMPARISON: CT lung screening [id number] 01/24/2024 10:21 AM FINDINGS: Lungs: Unremarkable. No consolidation. Pleural spaces: Unremarkable. No pleural effusion. No pneumothorax. Heart/Mediastinum: Unremarkable. No cardiomegaly. Bones/joints: Left shoulder joint degenerative changes. XR/XR chest 1V portable [id number] IMPRESSION: As above.
--- NOTE | 2024-05-17 16:49 | W.ED.SOB ---
HPI - SOB/Dyspnea General: Chief Complaint: Shortness of Breath/Dyspnea Stated Complaint: Flu, SOB Time Seen by Provider: 05/17/24 16:30 Source: patient Mode of arrival: ambulatory Limitations: no limitations History of Present Illness: HPI Narrative: Patient is a 68-year-old female with past medical history of COPD who presents the emergency department by ambulance for shortness of breath of the past couple days. Was seen at clinic today diagnosed with flu a. Patient states she has been laying in bed for the past couple of days due to her symptoms. She notes fever, shortness of breath, as well as a productive cough. States that she feels dehydrated and she has no appetite. Initially at the clinic reported to be in the upper 80s with her SpO2, she was placed on 2 L of oxygen this brought up to 97%. Here in the ED she is not on oxygen and she is 92 to 95%. Does not use oxygen at home. Denies any peripheral edema, chest pain, or significant orthopnea. MD elicited complaint: shortness of breath and cough Pertinent past history: COPD Onset (ago): day(s) (2) Timing: constant Severity: moderate Exacerbating factors: exertion, movement and coughing Relieving factors: nothing Known history of: COPD Associated symptoms: Reports fever(s); Deny abdominal pain, chest pain, lightheadedness, nausea, palpitations or vomiting Related Data Home Medications Medication Instructions Recorded Confirmed multivitamin 1 tab PO QAM 04/28/19 05/17/24 ascorbic acid (vitamin C) 500 mg 500 mg PO BID 08/17/22 05/17/24 capsule,extended release (Vitamin C) cholecalciferol (vitamin D3) 25 25 mcg PO DAILY 08/17/22 05/17/24 mcg (1,000 unit) tablet (Vitamin D3) cyanocobalamin (vitamin B-12) 250 250 mcg PO DAILY 08/17/22 05/17/24 mcg tablet (Vitamin B-12) melatonin 5 mg tablet 5 mg PO BEDTIME 08/17/22 05/17/24 acetaminophen 650 mg 650 mg PO Q12H 03/18/23 05/17/24 tablet,extended release (Tylenol Arthritis Pain) Previous Rx's Medication Instructions Recorded albuterol sulfate 90 mcg/actuation 2 inh inhalation Q4H PRN shortness 04/30/23 aerosol inhaler of breath or wheezing #18 grams topiramate 50 mg tablet See Rx Instructions .Route 11/09/23 .COMPLEX #180 tabs venlafaxine 75 mg capsule,extended See Rx Instructions .Route 11/09/23 release 24 hr .COMPLEX #180 caps amlodipine 10 mg tablet See Rx Instructions .Route 01/11/24 .COMPLEX #30 tabs levothyroxine 100 mcg tablet See Rx Instructions .Route 01/11/24 .COMPLEX #90 tabs albuterol sulfate 90 mcg/actuation 1 inh inhalation Q6H PRN shortness 05/17/24 aerosol inhaler of breath or wheezing #6.7 grams oseltamivir 75 mg capsule (Tamiflu) 75 mg PO BID 5 days #10 caps 05/17/24 prednisone 20 mg tablet 60 mg (3 x 20 mg) PO ONCE 5 days 05/17/24 #15 tabs Allergies Allergy/AdvReac Type Severity Reaction Status Date / Time Penicillins Allergy ALGY-Rash Verified 04/10/24 10:17 Sulfa (Sulfonamide Allergy ALGY-Rash Verified 04/10/24 10:17 Antibiotics) Review of Systems General: Reports: 10 or more systems reviewed and unremarkable except in HPI and below Const: Reports: fever(s) and change in appetite; Denies: chills or fatigue Eyes: Denies: change in vision ENMT: Denies: throat pain, ear or mastoid pain or nasal discharge Card: Denies: chest pain, palpitations, swelling of feet/ankles or lightheadedness Resp: Reports: dyspnea and productive cough; Denies: wheezing GI: Denies: abdominal pain, nausea, vomiting, diarrhea or constipation : Denies: flank pain, difficulty voiding, dysuria or urinary frequency Musc: Denies: neck pain, back pain or joint pain Skin/Breast: Denies: rash Neuro: Reports: weakness in extremities; Denies: headache(s) or numbness in extremities PFSH ED PFSH: Medical History Menopausal state Hypertension Macrocytosis COPD (chronic obstructive pulmonary disease) Herniated nucleus pulposus, L5-S1 Spinal stenosis, lumbar region, with neurogenic claudication L4-L5 disc bulge Back pain with right-sided radiculopathy Stress incontinence Hyperlipemia Adult onset hypothyroidism Vitamin D deficiency Degeneration of intervertebral disc of lumbosacral region Fibromyalgia Multiple sclerosis Rib pain on left side Surgical History History of cholecystectomy History of tubal ligation Family History Other Cancer Diabetes Social History Smoking and tobacco/nicotine status: never used tobacco/nicotine Quit status (tobacco/nicotine): has quit using Year quit tobacco: 08/17/22 Second hand smoke exposure: No Alcohol intake: never Substance/Drug Use: never Lives independently: Yes Household members: spouse Marital status: service: No Current occupational status: retired and disabled Current gender identity: Female Physical Exam Const: COMMON NORMALS: patient oriented x3 and no limitations GENERAL APPEARANCE: cooperative and well developed ORIENTATION/CONSCIOUSNESS: Yes awake, Yes oriented to person, Yes oriented to place and Yes oriented to time OTHER: Mild respiratory distress HENMT: COMMON NORMALS: normocephalic, atraumatic and hearing grossly normal bilaterally HEAD & SCALP: normocephalic and atraumatic OTHER: Dry oral mucosa Eye: COMMON NORMALS: Equal, round and reactive pupils present, EOMs intact bilaterally and conjunctivae normal CONJUNCTIVA: Yes conjunctivae normal PUPIL: Yes Equal, round and reactive pupils present Neck/C-Spine: COMMON NORMALS: full ROM, supple and no JVD Resp: COMMON NORMALS: No retractions, No use of accessory muscles and clear to auscultation bilaterally EFFORT & INSPECTION: Yes respiratory distress (Mild) AUSCULTATION: clear to auscultation bilaterally Cardio: COMMON NORMALS: no JVD, regular rate, regular rhythm, No clicks present (Cardio), No murmurs present (Cardio) and No rub (Cardio) RATE: regular rate RHYTHM: regular rhythm GI: COMMON NORMALS: Normal to inspection, nondistended, normoactive bowel sounds present, Soft to palpation and non-tender AUSCULTATION: Yes normoactive bowel sounds PALPATION: Yes Soft to palpation RECTAL EXAM: deferred Extremity: COMMON NORMALS: normal to inspection, full ROM and capillary refill normal Neuro: COMMON NORMALS: patient oriented x3, moves all extremities, no focal motor deficits and no sensory deficits noted SENSORIUM/ORIENTATION: Yes oriented to person, Yes oriented to place and Yes oriented to time Skin: COMMON NORMALS: no rashes or lesions noted GENERAL SKIN EXAM: no rashes or lesions noted Course Vital Signs: Vital signs: Vital Signs Temperature 98.9 F 05/17/24 16:29 Pulse Rate 86 05/17/24 18:28 Respiratory Rate 16 05/17/24 18:23 Blood Pressure 132/80 05/17/24 18:14 Pulse Oximetry 91 05/17/24 18:23 Oxygen Delivery Me thod Room Air 05/17/24 18:23 MDM - SOB/Dyspnea Medical Decision Making Patient presented by ambulance for shortness of breath, diagnosed with flu today but has been having symptoms for just a little over 2 days. Was minimally hypoxic here, however has maintained above 90% for most of the ED stay. She was given 2 breathing treatments as well as methylprednisolone through IV, prior to discharge O2 noted at 94%. She does have COPD and is diagnosed with flu, can explain the slight dip in her SpO2. Chest x-ray did not demonstrate any focal pneumonia or other consolidation. Her lab work and urinalysis were unremarkable. Shortness of breath likely related to the influenza diagnosis and her history of COPD, will prescribe her albuterol to use at home as well as prednisone. Will start her on Tamiflu as she is just under the 72-hour window, and instructed to return with any worsening shortness of breath or other symptoms. She notes feeling much better after breathing treatments and steroids here in the ED, as mentioned her O2 has been low to mid 90s. I did discuss this case with Dr. Ibarra in the ED. Lab Data 05/17/24 16:46 05/17/24 16:46 Labs/Radiology: Radiology Impressions Chest X-Ray 05/17/24 16:47 IMPRESSION: As above. Laboratory Results WBC 4.99 10^3/uL (3.29-11.43) 05/17/24 16:46 RBC 3.49 10^6/uL (3.85-5.65) L 05/17/24 16:46 Hgb 12.00 g/dL (11.27-16.99) 05/17/24 16:46 Hct 37.4 % (36-47) 05/17/24 16:46 MCV 107.2 fl (85-98) H 05/17/24 16:46 MCH 34.4 pg (27-33) H 05/17/24 16:46 MCHC 32.1 g/dL (30-55) 05/17/24 16:46 RDW 22.0 % (12.1-15.1) H 05/17/24 16:46 Plt Count 225 10^3/cmm (157-399) 05/17/24 16:46 MPV 10.3 fL (7.4-10.4) 05/17/24 16:46 Neut % (Auto) 72.6 % 05/17/24 16:46 Lymph % (Auto) 14.4 % 05/17/24 16:46 [place] % (Auto) 10.8 % 05/17/24 16:46 Eos % (Auto) 0.8 % 05/17/24 16:46 Baso % (Auto) 1.0 % 05/17/24 16:46 Neut # (Auto) 3.62 10^3/uL (1.8-7.7) 05/17/24 16:46 Lymph # (Auto) 0.7 10^3/uL (0.8-4.8) L 05/17/24 16:46 [place] # (Auto) 0.5 10^3/uL (0.2-0.9) 05/17/24 16:46 Eos # (Auto) 0.0 10^3/uL (0.0-0.8) 05/17/24 16:46 Baso # (Auto) 0.1 10^3/uL (0.0-0.1) 05/17/24 16:46 Nucleated RBC % (auto) 0 % 05/17/24 16:46 Nucleated RBCs # 0.0 /100WBC 05/17/24 16:46 Sodium 140 mmol/L (136-145) 05/17/24 16:46 Potassium 3.3 mmol/L (3.5-5.1) L 05/17/24 16:46 Chloride 104 mmol/L (98-107) 05/17/24 16:46 Carbon Dioxide 24 mmol/L (22-29) 05/17/24 16:46 Anion Gap 15.3 (5-19) 05/17/24 16:46 BUN 10 mg/dL (8-23) 05/17/24 16:46 Creatinine 0.7 mg/dL (0.5-0.9) 05/17/24 16:46 GFR Calculation 83.2 mL/min (90-130) L 05/17/24 16:46 Glucose 101 mg/dL (65-115) 05/17/24 16:46 Calculated Osmolality 289 mOsm/kg (285-295) 05/17/24 16:46 Calcium 8.5 mg/dL (8.5-10.5) 05/17/24 16:46 Total Bilirubin 0.4 mg/dL (0.15-1.2) 05/17/24 16:46 AST 20 U/L (0-32) 05/17/24 16:46 ALT 16 U/L (0-33) 05/17/24 16:46 Alkaline Phosphatase 74 U/L (35-105) 05/17/24 16:46 Total Protein 6.5 g/dL (6.6-8.7) L 05/17/24 16:46 Albumin 4.3 g/dL (3.5-5.2) 05/17/24 16:46 Globulin 2.2 g/dL (1.3-4.6) 05/17/24 16:46 Procalcitonin 0.08 ng/mL (0-0.5) 05/17/24 16:46 Urine Color Dark yellow (Yellow) A 05/17/24 17:36 Urine Appearance Cloudy (CLEAR) A 05/17/24 17:36 Urine pH 5.0 (5-7) 05/17/24 17:36 Ur Specific [place] 1.035 (1.005-1.030) H 05/17/24 17:36 Urine Protein 1+ (Negative) A 05/17/24 17:36 Urine Glucose (UA) Negative (Normal) 05/17/24 17:36 Urine Ketones 1+ (Negative) H 05/17/24 17:36 Urine Blood Negative (Negative) 05/17/24 17:36 Urine Nitrate Negative (Negative) 05/17/24 17:36 Urine Bilirubin Negative (Negative) 05/17/24 17:36 Urine Urobilinogen 1.0 mg/dL (Negative) 05/17/24 17:36 Ur Leukocyte Esterase Negative (Negative) 05/17/24 17:36 Urine RBC 0-2 /hpf (0-2) 05/17/24 17:36 Urine WBC 0-5 /hpf (0-5) 05/17/24 17:36 Ur Squamous Epith Cells 0-5 /hpf (0-5) 05/17/24 17:36 Amorphous Sediment Not Reportable 05/17/24 17:36 Urine Bacteria None seen /hpf (NONE) 05/17/24 17:36 Hyaline Casts 1.65 /lpf 05/17/24 17:36 All radiology interpretation(s) finalized by discharge Discharge Plan Discharge Patient Disposition: Home Clinical Impression: Influenza, COPD (chronic obstructive pulmonary disease) Condition: Stable Prescriptions: New prednisone 20 mg tablet 60 mg PO ONCE 5 Days Qty: 15 0RF albuterol sulfate 90 mcg/actuation HFA aerosol inhaler 1 inh inhalation Q6H PRN (Reason: shortness of breath or wheezing) Qty: 6.7 0RF oseltamivir [Tamiflu] 75 mg capsule 75 mg PO BID 5 Days Qty: 10 0RF No Action multivitamin Tablet 1 tab PO QAM amlodipine 10 mg tablet See Rx Instructions .ROUTE .COMPLEX Qty: 30 5RF Dose Instruction: TAKE ONE TABLET BY MOUTH DAILY Rx Instructions: TAKE ONE TABLET BY MOUTH DAILY acetaminophen [Tylenol Arthritis Pain] 650 mg tablet extended release 650 mg PO Q12H albuterol sulfate 90 mcg/actuation HFA aerosol inhaler 2 inh INHALATION Q4H PRN (Reason: shortness of breath or wheezing) Qty: 18 0RF venlafaxine 75 mg capsule,extended release 24hr See Rx Instructions .ROUTE .COMPLEX Qty: 180 2RF Dose Instruction: TAKE TWO CAPSULES BY MOUTH EVERY MORNING Rx Instructions: TAKE TWO CAPSULES BY MOUTH EVERY MORNING topiramate 50 mg tablet See Rx Instructions .ROUTE .COMPLEX Qty: 180 2RF Dose Instruction: TAKE TWO TABLETS BY MOUTH EVERY MORNING Rx Instructions: TAKE TWO TABLETS BY MOUTH EVERY MORNING levothyroxine 100 mcg tablet See Rx Instructions .ROUTE .COMPLEX Qty: 90 1RF Dose Instruction: TAKE ONE TABLET BY MOUTH DAILY Rx Instructions: TAKE ONE TABLET BY MOUTH DAILY cyanocobalamin (vitamin B-12) [Vitamin B-12] 250 mcg Tablet 250 mcg PO DAILY ascorbic acid (vitamin C) [Vitamin C] 500 mg Capsule, Extended Release 500 mg PO BID cholecalciferol (vitamin D3) [Vitamin D3] 25 mcg (1,000 unit) Tablet 25 mcg PO DAILY melatonin 5 mg Tablet 5 mg PO BEDTIME Discharge Orders: Discharge ED (Routine); Ordered 05/17/24 Ordered By: Sriram Ibanez Referrals: Lachelle Lozoya FNP [Primary Care Provider] - Patient Instructions: Influenza (ED) Activity Restrictions/Additional Instructions: Tamiflu as prescribed. Use your inhaler every 6 hours as directed. Take prednisone. Please return with any worsening shortness of breath or other concerns. Follow-up closely with primary care. Coding Level of Care Code ED Product Responsibility Liaison for [employer]
[2024-05-17 16:54] LABS: Basophils # 0.1 10^3/uL (0.0-0.1); Eosinophils % 0.8 %; Hematocrit 37.4 % (36-47); Lymphocytes # 0.7 10^3/uL (0.8-4.8); Lymphocytes % 14.4 %; Mean Corpuscular HGB Conc 32.1 g/dL (30-55); Mean Corpuscular Hemoglobin 34.4 pg (27-33); Mean Corpuscular Volume 107.2 fl (85-98); Mean Platelet Volume 10.3 fL (7.4-10.4); Monocytes # 0.5 10^3/uL (0.2-0.9); Monocytes % 10.8 %; Neutrophils # 3.62 10^3/uL (1.8-7.7); Neutrophils % 72.6 %; Nucleated Red Blood Cells % 0 %; Platelet Count 225 10^3/cmm (157-399); Red Blood Count 3.49 10^6/uL (3.85-5.65); White Blood Count 4.99 10^3/uL (3.29-11.43)
[2024-05-17] MEDS: ipratropium-albuterol 3 mL Neb INHALATION ×2 (17:11→18:22)
[2024-05-17] MEDS: methylPREDNISolone sod succ 125 mg/2 mL INJ IVP (17:18)
[2024-05-17] MEDS: sodium chloride 0.9% 1,000 ML 999 ML IV (17:21)
[2024-05-17 17:22] LABS: Alanine Aminotransferase 16 U/L (0-33); Albumin Level 4.3 g/dL (3.5-5.2); Alkaline Phosphatase 74 U/L (35-105); Anion Gap 15.3 (5-19); Aspartate Amino Transferase 20 U/L (0-32); Blood Urea Nitrogen 10 mg/dL (8-23); Calcium 8.5 mg/dL (8.5-10.5); Carbon Dioxide 24 mmol/L (22-29); Chloride 104 mmol/L (98-107); Creatinine Clr Calc Pharmacy 76.5166; Globulin 2.2 g/dL (1.3-4.6); Glomerular Filtration Rate 83.2 mL/min (90-130); Glucose 101 mg/dL (65-115); Osmolality Calculated 289 mOsm/kg (285-295); Potassium 3.3 mmol/L (3.5-5.1); Sodium 140 mmol/L (136-145); Total Bilirubin 0.4 mg/dL (0.15-1.2); Total Protein 6.5 g/dL (6.6-8.7)
[2024-05-17 17:28] LABS: Procalcitonin 0.08 ng/mL (0-0.5)
[2024-05-17 17:56] LABS: Bilirubin Urine Negative (Negative); Blood Urine Negative (Negative); Glucose Urine UA Negative (Normal); Ketones Urine 1+ (Negative); Leukocyte Esterase Urine Negative (Negative); Nitrate Urine Negative (Negative); Protein Urine 1+ (Negative); Urine Appearance Cloudy (CLEAR); Urine Color Dark Yellow (Yellow)
[2024-05-17 17:58] LABS: Add Urine Microscopic? YES; Bacteria Urine None Seen /hpf; Hyaline Casts Urine 1.65 /lpf; RBC Urine 0-2 /hpf (0-2); Squamous Epithelial Cell Urine 0-5 /hpf (0-5); WBC Urine 0-5 /hpf (0-5)
[2024-05-17 18:07] LABS: Specific Gravity, Urine 1.035 (1.005-1.030)
[2024-05-17] MEDS: oseltamivir phosphate 75 mg Capsule PO (19:24)
== END 2024-05-17 19:31 | disposition home or self-care (01) ==
PROVIDERS: Emergency Provider Physician Assistant; PCP Nurse Practitioner Family
DX: J11.1 Influenza due to unidentified influenza virus with other respiratory manifestations (principal); J44.9 Chronic obstructive pulmonary disease, unspecified; E78.5 Hyperlipidemia, unspecified; I10 Essential (primary) hypertension
CPT/HCPCS: 71045; 80053; 81001; 84145; 85025; 87400; 94640; 96361; 96374; 99284; J2919; J7030

== ENCOUNTER → 2024-05-22 11:24 | Outpatient (BNVA) | payer MEDICARE, SELFPAY | PROVIDERS: PCP Nurse Practitioner Family; Visit Provider Nurse Practitioner Family | DX: J10.1 Influenza due to other identified influenza virus with other respiratory manifestations (principal); J40 Bronchitis, not specified as acute or chronic | CPT/HCPCS: 71046 ==

== ENCOUNTER 2024-05-29 08:53 | Emergency (ER) | payer MEDICARE, SELFPAY ==
[2024-05-29] VITALS (7 sets, daily range): BP systolic 108–142; BP diastolic 66–85; PULSE 66–84; RESP 16–20; TEMP 36.8; O2SAT 91–99; BMI 24.8
--- NOTE | 2024-05-29 09:37 | XR_ITS ---
WS: [id number] PORTABLE CHEST HISTORY: cough/congestion COMPARISON: 05/22/2024 No dense area of consolidation. Linear scarring at the LEFT lung base. No mass or pulmonary nodule. No pleural effusion or pneumothorax. Cardiac size: Normal. Mediastinum/Aorta: Normal mediastinum. Osteophytic ridging around the LEFT humeral head. No destructive bone lesions. XR/XR chest 1V portable [id number] IMPRESSION: 1. No pneumonia. 2. Curvilinear atelectasis or scar LEFT lung base.
--- NOTE | 2024-05-29 10:17 | W.ED.URI ---
HPI - URI/Sore Throat General: Chief Complaint: Upper Respiratory Infection Stated Complaint: sob, low o2 Time Seen by Provider: 05/29/24 09:07 Source: patient and family Mode of arrival: ambulatory Limitations: no limitations History of Present Illness: Patient is a 68-year-old female presents to ED today along with family for concerns of a continued cough and shortness of breath. She was diagnosed with influenza A on 05/17. She was seen here in the emergency department on that visit. She was placed on tamiflu as well as prednisone and albuterol. She subsequently followed up in clinic on 05/22 for continued symptoms. She was then placed on doxycycline and another round of prednisone. Patient states she is continuing to not improve. She is an everyday smoker but reportedly quit recently when she got ill. Family states they are monitoring her oxygen at home and it was running anywhere from 92 to 95%. Patient is satting 97% on room air during my initial examination with her. She also has a separate complaint of a painful burning rash to her back/buttocks. MD elicited complaint: cough and other (sob) Pertinent past history: COPD and other (everyday smoker) Onset (ago): day(s) Consistency: constant Severity: moderate Description of mucous: clear Able to tolerate fluids by mouth: Yes Exacerbating factors: nothing Relieving factors: nothing Associated symptoms: Deny abdominal pain, chills, chest pain, diarrhea, ear or mastoid pain, fever(s), headache(s), nasal congestion, nausea, sinus pain or vomiting Treatments prior to arrival: none Related Data Home Medications ?Medication ?Instructions ?Recorded ?Confirmed multivitamin 1 tab PO QAM 04/28/19 05/29/24 cholecalciferol (vitamin D3) 25 25 mcg PO DAILY 08/17/22 05/29/24 mcg (1,000 unit) tablet (Vitamin D3) cyanocobalamin (vitamin B-12) 250 250 mcg PO DAILY 08/17/22 05/29/24 mcg tablet (Vitamin B-12) melatonin 5 mg tablet 5 mg PO BEDTIME 08/17/22 05/29/24 acetaminophen 650 mg 650 mg PO Q12H PRN Pain 03/18/23 05/29/24 tablet,extended release (Tylenol Arthritis Pain) amlodipine 10 mg tablet 10 mg PO QPM 05/29/24 05/29/24 ascorbic acid (vitamin C) 500 mg 250 mg PO DAILY 05/29/24 05/29/24 tablet (Vitamin C) levothyroxine 100 mcg tablet 100 mcg PO QAM 05/29/24 05/29/24 topiramate 50 mg tablet 100 mg PO QAM 05/29/24 05/29/24 venlafaxine 75 mg capsule,extended 150 mg PO QAM 05/29/24 05/29/24 release 24 hr Previous Rx's ?Medication ?Instructions ?Recorded albuterol sulfate 90 mcg/actuation 1 inh inhalation Q6H PRN shortness 05/17/24 aerosol inhaler of breath or wheezing #6.7 grams albuterol sulfate 2.5 mg/3 mL 2.5 mg (3 mL) inhalation QID PRN 05/22/24 (0.083 %) solution for nebulization shortness of breath or wheezing #180 mL doxycycline hyclate 100 mg capsule 100 mg PO BID 10 days #20 caps 05/22/24 nebulizer maching with #1 ea 05/22/24 tubing/delivery device ondansetron 4 mg disintegrating 4 mg PO QID PRN nausea and 05/22/24 tablet vomiting #30 tabs hydrocodone 5 mg-acetaminophen 325 1 tab PO Q6H PRN pain #14 tabs 05/29/24 mg tablet ipratropium 0.5 mg-albuterol 3 mg 3 ml inhalation Q4H PRN shortness 05/29/24 (2.5 mg base)/3 mL nebulization of breath #90 mL soln valacyclovir 1 gram tablet 1,000 mg PO Q8H 7 days #21 tabs 05/29/24 (Valtrex) Allergies Allergy/AdvReac Type Severity Reaction Status Date / Time Penicillins Allergy ALGY-Rash Verified 05/29/24 09:04 Sulfa (Sulfonamide Allergy ALGY-Rash Verified 05/29/24 09:04 Antibiotics) Review of Systems Const: Denies: fever(s), chills, body aches, fatigue or malaise ENMT: Denies: throat pain, odynophagia, ear or mastoid pain, nasal discharge, nasal congestion or sinus pain Card: Denies: chest pain, palpitations, irregular heart rhythm, edema, swelling of feet/ankles, lightheadedness, syncope, pre-syncope, dyspnea on exertion, orthopnea, leg pain with exertion or acrocyanosis Resp: Reports: dyspnea, productive cough and chest congestion; Denies: wheezing GI: Denies: abdominal pain, nausea, vomiting or diarrhea : Denies: flank pain or dysuria Musc: Denies: neck pain, back pain, extremity pain, extremity swelling, joint swelling or joint redness Skin/Breast: Reports: rash Neuro: Denies: headache(s), numbness in extremities, weakness in extremities, sensory changes or dizziness PFSH ED PFSH: Medical History Menopausal state Hypertension Macrocytosis COPD (chronic obstructive pulmonary disease) Herniated nucleus pulposus, L5-S1 Spinal stenosis, lumbar region, with neurogenic claudication L4-L5 disc bulge Back pain with right-sided radiculopathy Stress incontinence Hyperlipemia Adult onset hypothyroidism Vitamin D deficiency Degeneration of intervertebral disc of lumbosacral region Fibromyalgia Multiple sclerosis Rib pain on left side Surgical History History of cholecystectomy History of tubal ligation Family History Other Cancer Diabetes Social History Smoking and tobacco/nicotine status: never used tobacco/nicotine Quit status (tobacco/nicotine): has quit using Year quit tobacco: 08/17/22 Second hand smoke exposure: No Alcohol intake: never Substance/Drug Use: never Lives independently: Yes Household members: spouse Marital status: service: No Current occupational status: retired and disabled Current gender identity: Female Physical Exam Const: COMMON NORMALS: no acute distress, average body habitus, patient oriented x3, no limitations, healthy appearing, alert and well nourished GENERAL APPEARANCE: cooperative ORIENTATION/CONSCIOUSNESS: Yes awake, Yes oriented to person, Yes oriented to place and Yes oriented to time HENMT: COMMON NORMALS: normocephalic and atraumatic HEAD & SCALP: normal to inspection, normocephalic and atraumatic FACE & SINUS: normal facial exam, sinuses nontender and face symmetric Eye: GENERAL EYE: appearance normal, both eyes and all related structures Neck/C-Spine: COMMON NORMALS: no lymphadenopathy Chest: COMMONS NORMALS: normal inspection of the chest and normal palpation of entire chest wall Resp: COMMON NORMALS: normal respiratory effort and clear to auscultation bilaterally AUSCULTATION: clear to auscultation bilaterally Cardio: COMMON NORMALS: regular rate and regular rhythm RATE: regular rate RHYTHM: regular rhythm Extremity: COMMON NORMALS: capillary refill normal, no clubbing, cyanosis or edema, no calf tenderness and no pedal edema GENERAL: Yes normal exam except as noted Neuro: COMMON NORMALS: patient oriented x3 SENSORIUM/ORIENTATION: Yes alert, Yes oriented to person, Yes oriented to place and Yes oriented to time Skin: RASHES: rashes noted OTHER: patient has classic herpes zoster rash however rash appears to affect bilateral lower lumbar/sacral dermatomes as it is located to bilateral buttocks; rash consisting of several clusters of vesicles on erythematous bases Course Vital Signs: Vital signs: Vital Signs Temperature 98.2 F 05/29/24 09:02 Pulse Rate 73 05/29/24 11:59 Respiratory Rate 16 05/29/24 11:59 Blood Pressure 128/83 05/29/24 11:59 Pulse Oximetry 94 05/29/24 11:59 Oxygen Delivery Me thod Room Air 05/29/24 11:59 MDM - URI/Sore Throat Medical Decision Making Patient clinically appears in no acute distress. She is satting normally on room air. She is here for cough and congestion that has persisted since her influenza diagnosis on 05/17. She has completed a round of Tamiflu as well as 2 rounds of prednisone as well as a round of doxycycline. She has also been trying albuterol inhalers and nebulizers. She does feel better after DuoNeb given here. She was also given IV Solu-Medrol. Will write her for albuterol/ipratropium vials to use in her nebulizer. Her CXR is unremarkable. Blood work including CBC, CMP, procalcitonin unremarkable. Discussed most likely post viral cough syndrome. She also quit smoking 2 weeks ago which could be contributing to her cough. Patient also had a complaint of a burning painful rash involving her back and buttocks. Clinically this is herpes zoster as it is classic clusters of vesicles on erythematous base. It does affect bilaterally which is rare but possible. She will be placed on antivirals and pain meds for this. I will forego additional steroids as she has just completed 2 rounds of prednisone. Recommend following with primary care later this week for reevaluation. Medical Records I reviewed the patient's medical records. Lab Data I reviewed the patient's lab results. 05/29/24 10:44 05/29/24 10:44 Radiology Impressions Chest X-Ray 05/29/24 09:37 IMPRESSION: 1. No pneumonia. 2. Curvilinear atelectasis or scar LEFT lung base. Laboratory Results WBC 10.01 10^3/uL (3.29-11.43) 05/29/24 10:44 RBC 4.16 10^6/uL (3.85-5.65) 05/29/24 10:44 Hgb 14.10 g/dL (11.27-16.99) 05/29/24 10:44 Hct 42.6 % (36-47) 05/29/24 10:44 MCV 102.4 fl (85-98) H 05/29/24 10:44 MCH 33.9 pg (27-33) H 05/29/24 10:44 MCHC 33.1 g/dL (30-55) 05/29/24 10:44 RDW 22.4 % (12.1-15.1) H 05/29/24 10:44 Plt Count 346 10^3/cmm (157-399) 05/29/24 10:44 MPV 10.6 fL (7.4-10.4) H 05/29/24 10:44 Neut % (Auto) 69.6 % 05/29/24 10:44 Lymph % (Auto) 13.3 % 05/29/24 10:44 Baker % (Auto) 11.4 % 05/29/24 10:44 Eos % (Auto) 3.6 % 05/29/24 10:44 Baso % (Auto) 0.9 % 05/29/24 10:44 Neut # (Auto) 6.97 10^3/uL (1.8-7.7) 05/29/24 10:44 Lymph # (Auto) 1.3 10^3/uL (0.8-4.8) 05/29/24 10:44 Baker # (Auto) 1.1 10^3/uL (0.2-0.9) H 05/29/24 10:44 Eos # (Auto) 0.4 10^3/uL (0.0-0.8) 05/29/24 10:44 Baso # (Auto) 0.1 10^3/uL (0.0-0.1) 05/29/24 10:44 Nucleated RBC % (auto) 0.3 % 05/29/24 10:44 Nucleated RBCs # 0.0 /100WBC 05/29/24 10:44 Sodium 141 mmol/L (136-145) 05/29/24 10:44 Potassium 4.2 mmol/L (3.5-5.1) 05/29/24 10:44 Chloride 101 mmol/L (98-107) 05/29/24 10:44 Carbon Dioxide 28 mmol/L (22-29) 05/29/24 10:44 Anion Gap 16.2 (5-19) 05/29/24 10:44 BUN 25 mg/dL (8-23) H 05/29/24 10:44 Creatinine 0.8 mg/dL (0.5-0.9) 05/29/24 10:44 GFR Calculation 71.3 mL/min (90-130) L 05/29/24 10:44 Glucose 110 mg/dL (65-115) 05/29/24 10:44 Calculated Osmolality 297 mOsm/kg (285-295) H 05/29/24 10:44 Calcium 9.7 mg/dL (8.5-10.5) 05/29/24 10:44 Total Bilirubin 0.8 mg/dL (0.15-1.2) 05/29/24 10:44 AST 13 U/L (0-32) 05/29/24 10:44 ALT 35 U/L (0-33) H 05/29/24 10:44 Alkaline Phosphatase 80 U/L (35-105) 05/29/24 10:44 Total Protein 6.6 g/dL (6.6-8.7) 05/29/24 10:44 Albumin 4.4 g/dL (3.5-5.2) 05/29/24 10:44 Globulin 2.2 g/dL (1.3-4.6) 05/29/24 10:44 Procalcitonin 0.05 ng/mL (0-0.5) 05/29/24 10:44 Coronavirus (PCR) Negative (Negative) 02/10/25 10:05 Influenza A (PCR) Negative (Negative) 05/29/24 10:05 Influenza Type B (PCR) Negative (Negative) 05/29/24 10:05 RSV (PCR) Negative (Negative) 05/29/24 10:05 All radiology interpretation(s) finalized by discharge Discharge Plan Discharge Patient Disposition: Home Clinical Impression: Post-viral cough syndrome Herpes zoster Qualifiers: Herpes zoster complications: without complications Qualified Code(s): B02.9 - Zoster without complications Condition: Stable Prescriptions: New valacyclovir [Valtrex] 1 gram tablet 1,000 mg PO Q8H 7 Days Qty: 21 0RF ipratropium-albuterol 0.5 mg-3 mg(2.5 mg base)/3 mL solution for nebulization 3 ml inhalation Q4H PRN (Reason: shortness of breath) Qty: 90 0RF Rx Instructions: until breathing returns to target peak flow/parameters hydrocodone-acetaminophen 5-325 mg tablet 1 tab PO Q6H PRN (Reason: pain) Qty: 14 0RF No Action multivitamin Tablet 1 tab PO QAM acetaminophen [Tylenol Arthritis Pain] 650 mg tablet extended release 650 mg PO Q12H PRN (Reason: Pain) (DME) nebulizer maching with tubing/delivery device See Rx Instructions .Route .MEDSUPPLY Qty: 1 0RF Rx Instructions: As directed albuterol sulfate 2.5 mg /3 mL (0.083 %) solution for nebulization 2.5 mg inhalation QID PRN (Reason: shortness of breath or wheezing) Qty: 180 0RF doxycycline hyclate 100 mg capsule 100 mg PO BID 10 Days Qty: 20 0RF ondansetron 4 mg tablet,disintegrating 4 mg PO QID PRN (Reason: nausea and vomiting) Qty: 30 0RF cyanocobalamin (vitamin B-12) [Vitamin B-12] 250 mcg Tablet 250 mcg PO DAILY cholecalciferol (vitamin D3) [Vitamin D3] 25 mcg (1,000 unit) Tablet 25 mcg PO DAILY melatonin 5 mg Tablet 5 mg PO BEDTIME ascorbic acid (vitamin C) [Vitamin C] 500 mg Tablet 250 mg PO DAILY venlafaxine 75 mg capsule,extended release 24hr 150 mg PO QAM levothyroxine 100 mcg tablet 100 mcg PO QAM amlodipine 10 mg tablet 10 mg PO QPM topiramate 50 mg tablet 100 mg PO QAM albuterol sulfate 90 mcg/actuation HFA aerosol inhaler 1 inh inhalation Q6H PRN (Reason: shortness of breath or wheezing) Qty: 6.7 0RF Discharge Orders: Discharge ED (Routine); Ordered 05/29/24 Ordered By: Leti Roger Referrals: Lachelle Lozoya FNP [Primary Care Provider] - Patient Instructions: Shingles (ED), Acute Cough (ED) Print Language: Syriac Coding Level of Care Code ED Head Turbine Operator for Andrewg Nancie
[2024-05-29 10:53] LABS: Basophils # 0.1 10^3/uL (0.0-0.1); Basophils % 0.9 %; Eosinophils # 0.4 10^3/uL (0.0-0.8); Eosinophils % 3.6 %; Hematocrit 42.6 % (36-47); Lymphocytes # 1.3 10^3/uL (0.8-4.8); Lymphocytes % 13.3 %; Mean Corpuscular HGB Conc 33.1 g/dL (30-55); Mean Corpuscular Hemoglobin 33.9 pg (27-33); Mean Corpuscular Volume 102.4 fl (85-98); Mean Platelet Volume 10.6 fL (7.4-10.4); Monocytes # 1.1 10^3/uL (0.2-0.9); Monocytes % 11.4 %; Neutrophils # 6.97 10^3/uL (1.8-7.7); Neutrophils % 69.6 %; Nucleated Red Blood Cells % 0.3 %; Platelet Count 346 10^3/cmm (157-399); Red Blood Count 4.16 10^6/uL (3.85-5.65); Red Cell Distribution Width 22.4 % (12.1-15.1); White Blood Count 10.01 10^3/uL (3.29-11.43)
[2024-05-29] MEDS: methylPREDNISolone sod succ 125 mg/2 mL INJ IVP (11:05)
[2024-05-29 11:15] LABS: Alanine Aminotransferase 35 U/L (0-33); Albumin Level 4.4 g/dL (3.5-5.2); Alkaline Phosphatase 80 U/L (35-105); Anion Gap 16.2 (5-19); Aspartate Amino Transferase 13 U/L (0-32); Blood Urea Nitrogen 25 mg/dL (8-23); Calcium 9.7 mg/dL (8.5-10.5); Carbon Dioxide 28 mmol/L (22-29); Chloride 101 mmol/L (98-107); Creatinine Clr Calc Pharmacy 77.0189; Globulin 2.2 g/dL (1.3-4.6); Glomerular Filtration Rate 71.3 mL/min (90-130); Glucose 110 mg/dL (65-115); Osmolality Calculated 297 mOsm/kg (285-295); Potassium 4.2 mmol/L (3.5-5.1); Sodium 141 mmol/L (136-145); Total Bilirubin 0.8 mg/dL (0.15-1.2); Total Protein 6.6 g/dL (6.6-8.7)
[2024-05-29 11:19] LABS: Procalcitonin 0.05 ng/mL (0-0.5)
[2024-05-29] MEDS: ipratropium-albuterol 3 mL Neb INHALATION (11:30)
[2024-05-29 11:42] LABS: Covid PCR NEGATIVE (Negative); Influenza A NEGATIVE (Negative); Influenza B NEGATIVE (Negative); Respiratory Syncytial Virus Ce NEGATIVE (Negative)
== END 2024-05-29 12:25 | disposition home or self-care (01) ==
PROVIDERS: Emergency Provider Physician Assistant; PCP Nurse Practitioner Family
DX: R05.9 Cough, unspecified (principal); B02.9 Zoster without complications; Z11.52 Encounter for screening for COVID-19; J44.9 Chronic obstructive pulmonary disease, unspecified; E78.5 Hyperlipidemia, unspecified; I10 Essential (primary) hypertension
CPT/HCPCS: 71045; 80053; 84145; 85025; 87637; 94640; 96374; 99284; J2919

== ENCOUNTER → 2024-06-13 15:44 | Outpatient (BNVA) | payer MEDICARE, SELFPAY | PROVIDERS: PCP Nurse Practitioner Family; Visit Provider Nurse Practitioner Family | DX: G35 Multiple sclerosis (principal); E03.8 Other specified hypothyroidism; M79.7 Fibromyalgia | CPT/HCPCS: 80053; 82306; 82607; 82746; 83735; 84439; 84443; 85025; 85651; 86140; 86592 ==

== ENCOUNTER 2024-06-14 14:45 | Outpatient (CLI) | payer MEDICARE, SELFPAY ==
--- NOTE | 2024-06-14 15:15 | MR_ITS ---
WS: [id number] MRI BRAIN WITH AND WITHOUT CONTRAST HISTORY: G35 - Multiple sclerosis, left-sided weakness. COMPARISON: None available. TECHNIQUE: Multiplanar imaging performed through the brain with MultiHance 16 ml's IV. Diffusion imaging is normal. No acute infarct and no hemorrhage. Numerous scattered T2 and FLAIR signal hyperintensities. A few of the signal hyperintensities about the lateral ventricle but none appear to be at the corpus callosum. There is also moderate bilateral cerebral atrophy and mild cerebellar atrophy. Appearance of the upper brainstem is normal. Prominent perivascular space versus lacunar infarct RIGHT external capsule. Mild bilateral hippocampal atrophy. No susceptibility artifacts or prior lacunar infarcts. Ventricles and extra-axial spaces are normal. Clivus and pituitary gland are normal. Visualized posterior fossa and brainstem are also normal. Postcontrast images are negative for masses or vascular malformations. Dural venous sinuses are normal. Paranasal sinuses: Small amount of fluid in the LEFT mastoid air cell. Mastoid air cells: Normal. Calvarium and scalp: Normal. MR/MR head wo/w con [id number] IMPRESSION: 1. No acute infarct or hemorrhage. 2. Moderate cerebral atrophy and mild cerebellar atrophy. 3. Prior lacunar infarct versus perivascular space RIGHT external capsule. 4. Moderate small vessel ischemic changes throughout the white matter. No johny callosal white matter lesions. No area of active demyelination. 5. No enhancing mass.
[2024-06-14] MEDS: gadobenate dimeglumine 20 mL vial 16 ML IV (15:45)
== END 2024-06-14 14:46 | disposition home or self-care (01) ==
PROVIDERS: PCP Nurse Practitioner Family; Visit Provider Nurse Practitioner Family
DX: G35 Multiple sclerosis (principal); G31.89 Other specified degenerative diseases of nervous system; R93.0 Abnormal findings on diagnostic imaging of skull and head, not elsewhere classified
CPT/HCPCS: 70553

== ENCOUNTER → 2024-06-28 10:32 | Outpatient (BNVA) | payer MEDICARE, SELFPAY | PROVIDERS: PCP Nurse Practitioner Family; Visit Provider Nurse Practitioner Family | DX: L27.8 Dermatitis due to other substances taken internally (principal); B07.8 Other viral warts; L29.89 Other pruritus; Z78.9 Other specified health status; L57.8 Other skin changes due to chronic exposure to nonionizing radiation | CPT/HCPCS: 17110; 99213 ==

== ENCOUNTER → 2024-08-04 08:07 | Outpatient (BNVA) | payer MEDICARE, SELFPAY | PROVIDERS: PCP Nurse Practitioner Family; Visit Provider Student in an Organized Health Care Education/Training Program | DX: M19.012 Primary osteoarthritis, left shoulder (principal) | CPT/HCPCS: 20610; 77002; J3301; J9999 ==

== ENCOUNTER → 2024-08-16 09:25 | Outpatient (BNVA) | payer MEDICARE, SELFPAY | PROVIDERS: PCP Nurse Practitioner Family; Visit Provider Nurse Practitioner Family | DX: E03.8 Other specified hypothyroidism (principal) | CPT/HCPCS: 84443 ==

== ENCOUNTER → 2024-09-07 14:55 | Outpatient (BNVA) | payer MEDICARE, SELFPAY | PROVIDERS: PCP Nurse Practitioner Family; Visit Provider Nurse Practitioner Family | DX: L57.8 Other skin changes due to chronic exposure to nonionizing radiation (principal); B07.8 Other viral warts; L53.8 Other specified erythematous conditions; L29.89 Other pruritus | CPT/HCPCS: 17110; 99213 ==

== ENCOUNTER → 2024-09-20 07:45 | Outpatient (BNVA) | payer MEDICARE, SELFPAY | PROVIDERS: PCP Nurse Practitioner Family; Referring Provider Nurse Practitioner Family; Visit Provider Psychiatry & Neurology Neurology | DX: R89.9 Unspecified abnormal finding in specimens from other organs, systems and tissues (principal); M54.2 Cervicalgia; G35 Multiple sclerosis; M51.27 Other intervertebral disc displacement, lumbosacral region; M48.061 Spinal stenosis, lumbar region without neurogenic claudication | CPT/HCPCS: 36415; 82525; 84155; 84165; 99203 ==

== ENCOUNTER 2024-09-25 11:58 | Outpatient (CLI) | payer MEDICARE, SELFPAY ==
--- NOTE | 2024-09-25 12:15 | MR_ITS ---
WS: [id number] MR CERVICAL SPINE WO/W HISTORY: M54.2 - Cervicalgia TECHNIQUE: Sagittal T1, T2 and T2 inversion recovery; axial T2, T2 gradient and fiesta. Post gadolinium imaging with fat saturation technique. FINDINGS:Straightening of the normal cervical lordosis. No high grade central canal narrowing. Cord signal is normal. No demyelinating lesions within the cervical cord. No significant cord atrophy. No enhancing lesions. C2-3: Mild facet arthropathy. Mild LEFT bony foraminal narrowing. C3-4: Moderate facet arthropathy. Mild bilateral bony foraminal narrowing. C4-5: Disc osteophyte complex. Moderate LEFT bony foraminal narrowing. Moderate facet arthropathy. C5-6: Disc osteophyte complex eccentric to the RIGHT. Moderate to severe RIGHT foraminal narrowing. Mild LEFT foraminal narrowing. Moderate facet arthropathy. C6-7: Tiny central protrusion. Spinal canal and foramen are patent. C7-T1: Mild LEFT bony foraminal narrowing. Spinal canal and RIGHT foramen are patent. MR/MR cervical spine wo/w [id number] IMPRESSION: 1. Straightening of the normal cervical lordosis. No high-grade central canal narrowing. Cord signal is normal. 2. No demyelinating lesions within the cervical cord. No enhancing lesions. 3. No significant cord atrophy. 4. RIGHT eccentric disc osteophyte complex C5-6 with moderate to severe RIGHT C5-6 foraminal narrowing.
--- NOTE | 2024-09-25 13:00 | MR_ITS ---
WS: [id number] MRI LUMBAR SPINE WITH CONTRAST TECHNIQUE: Sagittal T1, T2 and STIR imaging. Axial T1 and T2 imaging. Post gadolinium imaging was obtained. CLINICAL INFORMATION: M51.27 - Other intervertebral disc displacement, lumbosac... COMPARISON: 2022 FINDINGS: Mild lumbar curve. No acute compression. Disc bulging worse at L4-L5 and L5-S1 with small annular tears similar to previous. L1-L2: Mild annular bulging. Moderate facet arthropathy. Slight narrowing LEFT subarticular recess. Mild LEFT foraminal narrowing. L2-L3: Mild annular bulging. Mild central canal stenosis with narrowing of the subarticular recess bilaterally. Moderate facet arthropathy. Small bilateral foraminal protrusions with mild LEFT greater than RIGHT foraminal narrowing. L3-L4: Mild annular bulging. Moderate central canal stenosis. This is unchanged. Narrowing of the subarticular recess. Foramen are patent. Moderate facet arthropathy. L4-L5: Central disc protrusion with moderate to severe central canal stenosis unchanged compared to previous. Impingement of the traversing L5 nerve roots bilaterally. Moderate LEFT foraminal narrowing. Advanced facet arthropathy. L5-S1: Shallow central protrusion with a small annular tear. Impingement of traversing S1 nerve roots bilaterally with moderate central canal stenosis unchanged. Advanced facet arthropathy. Visualized pelvic bony structures: Normal. Paravertebral soft tissues: Normal. Small LEFT renal cysts. MR/MR lumbar spine wo/w con [id number] IMPRESSION: 1. No abnormal gadolinium enhancement. 2. Moderate central canal stenosis L3-4 and moderate to severe L4-5 similar to previous. 3. Moderate central canal stenosis L5-S1 with a small central protrusion and a nnular tear. 4. Mild central canal stenosis L2-3 appears stable. 5. Stable moderate LEFT L4-5 foraminal narrowing.
[2024-09-25] MEDS: gadobenate dimeglumine 20 mL vial IV (13:34)
== END 2024-09-25 11:59 | disposition home or self-care (01) ==
PROVIDERS: PCP Nurse Practitioner Family; Visit Provider Psychiatry & Neurology Neurology
DX: M48.02 Spinal stenosis, cervical region (principal); G35 Multiple sclerosis; M51.27 Other intervertebral disc displacement, lumbosacral region; R93.7 Abnormal findings on diagnostic imaging of other parts of musculoskeletal system; M25.78 Osteophyte, vertebrae; M47.892 Other spondylosis, cervical region; M48.03 Spinal stenosis, cervicothoracic region; M48.061 Spinal stenosis, lumbar region without neurogenic claudication; M48.07 Spinal stenosis, lumbosacral region; M51.A3 Intervertebral annulus fibrosus defect, lumbosacral region, unspecified size; M43.8X6 Other specified deforming dorsopathies, lumbar region; M51.369 Other intervertebral disc degeneration, lumbar region without mention of lumbar back pain or lower extremity pain; M51.379 Other intervertebral disc degeneration, lumbosacral region without mention of lumbar back pain or lower extremity pain; M47.896 Other spondylosis, lumbar region; M51.26 Other intervertebral disc displacement, lumbar region; M47.897 Other spondylosis, lumbosacral region; N28.1 Cyst of kidney, acquired
CPT/HCPCS: 72156; 72158

== ENCOUNTER 2024-09-26 15:45 | Oncology outpatient (recurring) (ONCR) | payer MEDICARE, SELFPAY | END 2024-10-16 23:59 | disposition home or self-care (01) | PROVIDERS: PCP Nurse Practitioner Family; Visit Provider Internal Medicine Medical Oncology | DX: Z53.9 Procedure and treatment not carried out, unspecified reason (principal); R03.0 Elevated blood-pressure reading, without diagnosis of hypertension; D75.89 Other specified diseases of blood and blood-forming organs | CPT/HCPCS: 99204 ==

== ENCOUNTER 2024-09-28 12:35 | Outpatient (CLI) | payer MEDICARE, SELFPAY ==
--- NOTE | 2024-09-28 13:00 | MR_ITS ---
WS: [email or web address] MRA CAROTID WITHOUT AND WITH GADOLINIUM ENHANCEMENT TECHNIQUE: Axial 2-D TOF and gadolinium bolus images obtained with axial images and axial, sagittal, and coronal 2-D reformatted images. CLINICAL INFORMATION: R42 - Dizziness and giddiness COMPARISON: None. FINDINGS: RIGHT: RIGHT common carotid artery is patent. No significant RIGHT ICA stenosis. RIGHT ICA is patent to the skull base. LEFT: LEFT common carotid artery is patent. No significant LEFT ICA stenosis. LEFT ICA is patent to the skull base. RIGHT dominant vertebral artery. Smaller but patent LEFT vertebral artery. Vertebral arteries are patent to the basilar junction. Proximal subclavian arteries are patent. MR/MR angio neck w con* [id number] IMPRESSION: 1. No significant cervical ICA stenosis. 2. RIGHT dominant vertebral artery. Smaller but patent LEFT vertebral artery. 3. No other acute findings.
--- NOTE | 2024-09-28 13:45 | MR_ITS ---
WS: [id number] MRA HEAD TECHNIQUE: Axial 3-D TOF images obtained with axial images and axial, sagittal, and coronal 2-D reformatted images. CLINICAL INFORMATION: R42 - Dizziness and giddiness COMPARISON: None. FINDINGS: Basilar artery is patent. Normal vascularity to the [employer] territory bilaterally. Both ICAs are patent at the skull base. Normal petrous segments. Tiny RIGHT cavernous carotid artery aneurysm or infundibulum measuring 2 mm. Patent anterior communicating artery. Normal vascularity to the [place] territory. Normal vascularity to the MCA territories bilaterally. No evidence of proximal flow-limiting stenosis. MR/MR angio head wo con [id number] IMPRESSION: 1. No evidence of proximal flow-limiting stenosis. 2. 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 3. No other acute findings.
== END 2024-09-28 12:36 | disposition home or self-care (01) ==
PROVIDERS: PCP Nurse Practitioner Family; Visit Provider Psychiatry & Neurology Neurology
DX: R42 Dizziness and giddiness (principal); R93.0 Abnormal findings on diagnostic imaging of skull and head, not elsewhere classified
CPT/HCPCS: 70544; 70548

== ENCOUNTER → 2024-10-11 08:14 | Outpatient (BNVA) | payer MEDICARE, SELFPAY | PROVIDERS: PCP Nurse Practitioner Family; Visit Provider Physician Assistant | DX: Z96.641 Presence of right artificial hip joint (principal) | CPT/HCPCS: 73502; 99213 ==

== ENCOUNTER → 2024-11-10 13:41 | Outpatient (BNVA) | payer MEDICARE, SELFPAY | PROVIDERS: PCP Nurse Practitioner Family; Visit Provider Student in an Organized Health Care Education/Training Program | DX: M19.012 Primary osteoarthritis, left shoulder (principal) | CPT/HCPCS: 20610; 77002; J3301; J9999 ==

== ENCOUNTER → 2024-11-16 11:35 | Outpatient (BNVA) | payer MEDICARE, SELFPAY | PROVIDERS: PCP Nurse Practitioner Family; Visit Provider Nurse Practitioner Family | DX: E03.8 Other specified hypothyroidism (principal) | CPT/HCPCS: 84443 ==

== ENCOUNTER → 2025-03-09 09:40 | Outpatient (BNVA) | payer MEDICARE, SELFPAY | PROVIDERS: PCP Nurse Practitioner Family; Visit Provider Student in an Organized Health Care Education/Training Program | DX: M19.012 Primary osteoarthritis, left shoulder (principal); Z71.89 Other specified counseling | CPT/HCPCS: 20610; 77002; J3301; J9999 ==

== ENCOUNTER → 2025-03-20 15:00 | Outpatient (BNVA) | payer MEDICARE, SELFPAY | PROVIDERS: PCP Nurse Practitioner Family; Visit Provider Nurse Practitioner Family | DX: M79.7 Fibromyalgia (principal); I10 Essential (primary) hypertension; E78.5 Hyperlipidemia, unspecified; D64.9 Anemia, unspecified; E03.8 Other specified hypothyroidism | CPT/HCPCS: 80053; 80061; 82306; 82607; 82728; 83735; 84439; 84443; 85025 ==

== ENCOUNTER 2025-04-03 12:56 | Emergency (ER) | payer MEDICARE, SELFPAY ==
[2025-04-03 12:58] VITALS: BP 135/65; PULSE 83; TEMP 36.7; O2SAT 99; BMI 27.3
--- NOTE | 2025-04-03 13:04 | XRR_ITS ---
PROCEDURE INFORMATION: Exam: XR Abdomen Exam date and time: 04/03/2025 1:16 PM Age: 69 years old Clinical indication: Constipation TECHNIQUE: Imaging protocol: Radiologic exam of the abdomen. Views: Frontal supine view of the abdomen. 1 View. COMPARISON: CR XR hip RT 2-3V wo/w pel* [id number] 10/11/2024 8:17 AM FINDINGS: Gastrointestinal tract: Nonobstructive bowel gas pattern. Small stool in the colon. Intraperitoneal space: No evidence for free air. Organs: Cholecystectomy. Bones/joints: Right hip arthroplasty. XR/XR abdomen 1V* [id number] IMPRESSION: No acute findings.
[2025-04-03 13:16] VITALS: BP 146/82; PULSE 73; O2SAT 97
--- NOTE | 2025-04-03 13:43 | W.ED.ABDPA2 ---
HPI - Abdominal Pain General: Chief Complaint: Abdominal Pain Stated Complaint: abd pain, no bowel movement in 2 weeks Time Seen by Provider: 04/03/25 13:04 Source: patient Mode of arrival: ambulatory Limitations: no limitations History of Present Illness: Patient is a 69-year-old female who presents the emergency department complaining of abdominal distention and pain for the past 2 weeks, and frequent passing of small stools. States that she has not had a full normal BM since March 20, and prior to that she had 3 weeks of diarrhea. Denies any history of IBS, inflammatory bowel disease, previous abdominal surgeries, previous small bowel obstructions, or any other pertinent history. They have tried [id number] Colace, Zaynab-Brethren, and MiraLAX without any relief. Patient's appetite has been unchanged, notes that her abdominal pain is diffuse and is associated with the worsening of distention. She is not reporting any fevers, nausea/vomiting, encopresis, or any other symptoms. She does note that she is still passing gas. MD elicited complaint: abdominal pain Pertinent past history: none Onset (ago): week(s) Pain Consistency: constant Location: Diffuse Severity: moderate Quality: fullness Associated Symptoms: Reports bloating and constipation; Denies chills, diarrhea, dysuria, fever(s), hematochezia, nausea and vomiting Related Data Home Medications ?Medication ?Instructions ?Recorded ?Confirmed multivitamin 1 tab PO QAM 04/28/19 03/20/25 cholecalciferol (vitamin D3) 25 25 mcg PO DAILY 08/17/22 03/20/25 mcg (1,000 unit) tablet (Vitamin D3) cyanocobalamin (vitamin B-12) 250 250 mcg PO DAILY 08/17/22 03/20/25 mcg tablet (Vitamin B-12) melatonin 5 mg tablet 5 mg PO BEDTIME 08/17/22 03/20/25 acetaminophen 650 mg 650 mg PO Q12H PRN Pain 03/18/23 03/20/25 tablet,extended release (Tylenol Arthritis Pain) ascorbic acid (vitamin C) 500 mg 250 mg PO DAILY 05/29/24 03/20/25 tablet (Vitamin C) Previous Rx's ?Medication ?Instructions ?Recorded albuterol sulfate 90 mcg/actuation 1 inh inhalation Q6H PRN shortness 05/17/24 aerosol inhaler of breath or wheezing #6.7 grams albuterol sulfate 2.5 mg/3 mL 2.5 mg (3 mL) inhalation QID PRN 05/22/24 (0.083 %) solution for nebulization shortness of breath or wheezing #180 mL nebulizer maching with #1 ea 05/22/24 tubing/delivery device amlodipine 10 mg tablet See Rx Instructions .Route 12/26/24 .COMPLEX #90 tabs venlafaxine 75 mg capsule,extended 150 mg (2 x 75 mg) PO QAM #180 caps 12/26/24 release 24 hr topiramate 50 mg tablet See Rx Instructions .Route 01/02/25 .COMPLEX #180 tabs levothyroxine 100 mcg tablet 100 mcg PO DAILY #90 tabs 03/27/25 (Synthroid) rosuvastatin 5 mg tablet 5 mg PO DAILY #90 tabs 03/28/25 ondansetron 4 mg disintegrating 4 mg PO TID PRN nausea and 04/03/25 tablet vomiting #30 tabs Allergies Allergy/AdvReac Type Severity Reaction Status Date / Time Penicillins Allergy ALGY-Rash Verified 04/03/25 13:04 Sulfa (Sulfonamide Allergy ALGY-Rash Verified 04/03/25 13:04 Antibiotics) Review of Systems General: Reports: 10 or more systems reviewed and unremarkable except in HPI and below Const: Denies: fever(s), chills, change in appetite, change in weight or diaphoresis ENMT: Denies: throat pain or hoarseness Card: Denies: chest pain, palpitations or lightheadedness Resp: Denies: dyspnea, productive cough or wheezing GI: Reports: abdominal pain, constipation and bloating; Denies: nausea, vomiting, diarrhea or hematochezia : Denies: flank pain, difficulty voiding, dysuria, urinary frequency or urinary urgency Musc: Denies: neck pain or back pain Skin/Breast: Denies: rash or new lesions Neuro: Denies: headache(s) or dizziness PFS ED PFSH: Medical History Menopausal state Hypertension Macrocytosis COPD (chronic obstructive pulmonary disease) Herniated nucleus pulposus, L5-S1 Spinal stenosis, lumbar region, with neurogenic claudication L4-L5 disc bulge Back pain with right-sided radiculopathy Stress incontinence Hyperlipemia Adult onset hypothyroidism Vitamin D deficiency Degeneration of intervertebral disc of lumbosacral region Fibromyalgia Multiple sclerosis Rib pain on left side Surgical History History of cholecystectomy History of tubal ligation Family History Other Cancer Diabetes Social History Smoking and tobacco/nicotine status: current every day tobacco/nicotine user Second hand smoke exposure: No Alcohol intake: never Substance/Drug Use: never Lives independently: Yes Household members: spouse Marital status: service: No Current occupational status: retired and disabled Current gender identity: Female Physical Exam Const: COMMON NORMALS: no acute distress, patient oriented x3, no limitations, alert and well nourished GENERAL APPEARANCE: cooperative and comfortable ORIENTATION/CONSCIOUSNESS: Yes awake OTHER: Nontoxic-appearing Resp: COMMON NORMALS: normal respiratory effort, No retractions, No use of accessory muscles and clear to auscultation bilaterally AUSCULTATION: clear to auscultation bilaterally, no crackles, no rales, no rhonchi and no wheezes Cardio: COMMON NORMALS: regular rate, regular rhythm, No gallops present (Cardio), No clicks present (Cardio), No murmurs present (Cardio) and No rub (Cardio) RATE: regular rate RHYTHM: regular rhythm GI: INSPECTION: Yes abdominal distension AUSCULTATION: Yes Hyperactive bowel sounds present PALPATION: Yes Tenderness to palpation present (GI) (Diffuse tenderness to palpation) and No Guarding due to palpation present (GI) RECTAL EXAM: deferred Extremity: COMMON NORMALS: normal to inspection and full ROM Neuro: COMMON NORMALS: patient oriented x3, moves all extremities, no focal motor deficits and no sensory deficits noted SENSORIUM/ORIENTATION: Yes alert Psych: COMMON NORMALS: mental status grossly normal, cooperative and speech normal SPEECH: Yes normal speech Skin: COMMON NORMALS: no rashes or lesions noted GENERAL SKIN EXAM: no rashes or lesions noted Course Vital Signs: Vital signs: Vital Signs Temperature 98.0 F 04/03/25 12:58 Pulse Rate 83 04/03/25 14:33 Blood Pressure 142/82 04/03/25 14:33 Pulse Oximetry 95 04/03/25 14:33 Oxygen Delivery Me thod Room Air 04/03/25 14:33 MDM - Abdominal Pain Medical Decision Making The patient is a 69-year-old female presenting with 2 weeks constipation minimal stool passage. Initial abdominal x-ray showed no significant findings or signs of obstruction. On exam there is nonspecific abdominal tenderness palpation and mild distention noted but overall nontoxic-appearing. CT scan was ordered after this to rule out mechanical obstruction revealed possible mild early sigmoid diverticulitis; however, the patient is clinically stable without leukocytosis or fever, indicating uncomplicated mild disease. Antibiotics not indicated at this time for immunocompetent patient. She will receive symptomatic therapy for this. Primary diagnosis is adynamic ileus, which is likely causing her decreased bowel movements. She has no chronic opioid use or other typical risk factors for ileus, though she reports a possible history of mixed IBS with the alternating diarrhea and constipation though she has never been evaluated for this. Initial management of the adynamic ileus including supportive measures with correction of electrolyte abnormalities of which there are none, we will discontinue any antikinetic medications. Conservative management with osmotic laxative initiated with polyethylene glycol encouraged, stimulant laxative such as senna or bisacodyl may be added. She is not requiring hospitalization or NG tube placement at this time given her clinical stability and ability to tolerate oral intake. She will be referred to general surgery for reevaluation to ensure appropriate follow-up and to exclude any evolving complications. Outpatient management with close monitoring appropriate, with instructions to return if symptoms worsen, fever develops, or abdominal pain intensifies. Patient and family in the room agreed with this plan. Lab Data 04/03/25 14:00 04/03/25 14:00 Labs/Radiology: Radiology Impressions Abdomen X-Ray 04/03/25 13:04 IMPRESSION: No acute findings. Abdomen/Pelvis CT 04/03/25 13:47 IMPRESSION: 1. Sigmoid diverticulosis with a small amount of adjacent fluid and induration can be seen with early or mild diverticulitis. Recommend correlation with symptoms. 2. Air-fluid level in the stomach with small esophageal hiatal hernia. 3. Fluid-filled loops of small bowel and colon although no evidence of high-grade obstruction. Adynamic ileus suspected. 4. Prior cholecystectomy and appendectomy. 5. No other acute findings. Laboratory Results WBC 8.80 10^3/uL (3.29-11.43) 04/03/25 14:00 RBC 3.35 10^6/uL (3.85-5.65) L 04/03/25 14:00 Hgb 12.10 g/dL (11.27-16.99) 04/03/25 14:00 Hct 36.1 % (36-47) 04/03/25 14:00 MCV 107.8 fl (85-98) H 04/03/25 14:00 MCH 36.1 pg (27-33) H 04/03/25 14:00 MCHC 33.5 g/dL (30-55) 04/03/25 14:00 RDW 21.3 % (12.1-15.1) H 04/03/25 14:00 Plt Count 315 10^3/cmm (157-399) 04/03/25 14:00 MPV 10.5 fL (7.4-10.4) H 04/03/25 14:00 Neut % (Auto) 73.2 % 04/03/25 14:00 Lymph % (Auto) 14.9 % 04/03/25 14:00 Clay % (Auto) 6.8 % 04/03/25 14:00 Eos % (Auto) 3.1 % 04/03/25 14:00 Baso % (Auto) 1.4 % 04/03/25 14:00 Neut # (Auto) 6.45 10^3/uL (1.8-7.7) 04/03/25 14:00 Lymph # (Auto) 1.3 10^3/uL (0.8-4.8) 04/03/25 14:00 Clay # (Auto) 0.6 10^3/uL (0.2-0.9) 04/03/25 14:00 Eos # (Auto) 0.3 10^3/uL (0.0-0.8) 04/03/25 14:00 Baso # (Auto) 0.1 10^3/uL (0.0-0.1) 04/03/25 14:00 Nucleated RBC % (auto) 0.2 % 04/03/25 14:00 Nucleated RBCs # 0.0 /100WBC 04/03/25 14:00 Sodium 140 mmol/L (136-145) 04/03/25 14:00 Potassium 3.8 mmol/L (3.5-5.1) 04/03/25 14:00 Chloride 105 mmol/L (98-107) 04/03/25 14:00 Carbon Dioxide 25 mmol/L (22-29) 04/03/25 14:00 Anion Gap 13.8 (5-19) 04/03/25 14:00 BUN 10 mg/dL (8-23) 04/03/25 14:00 Creatinine 0.7 mg/dL (0.5-0.9) 04/03/25 14:00 GFR Calculation 83.0 mL/min (90-130) L 04/03/25 14:00 Glucose 125 mg/dL (65-115) H 04/03/25 14:00 Calculated Osmolality 291 mOsm/kg (285-295) 04/03/25 14:00 Calcium 8.5 mg/dL (8.5-10.5) 04/03/25 14:00 Total Bilirubin 0.7 mg/dL (0.15-1.2) 04/03/25 14:00 AST 22 U/L (0-32) 04/03/25 14:00 ALT 27 U/L (0-33) 04/03/25 14:00 Alkaline Phosphatase 81 U/L (35-105) 04/03/25 14:00 Total Protein 6.3 g/dL (6.6-8.7) L 04/03/25 14:00 Albumin 4.4 g/dL (3.5-5.2) 04/03/25 14:00 Globulin 1.9 g/dL (1.3-4.6) 04/03/25 14:00 Lipase 16 U/L (13-60) 04/03/25 14:00 Amorphous Sediment Not Reportable 04/03/25 15:14 All radiology interpretation(s) finalized by discharge Discharge Plan Discharge Patient Disposition: Home Clinical Impression: Adynamic ileus Condition: Stable Prescriptions: New ondansetron 4 mg tablet,disintegrating 4 mg PO TID PRN (Reason: nausea and vomiting) Qty: 30 0RF No Action multivitamin Tablet 1 tab PO QAM acetaminophen [Tylenol Arthritis Pain] 650 mg tablet extended release 650 mg PO Q12H PRN (Reason: Pain) (DME) nebulizer maching with tubing/delivery device See Rx Instructions .Route .MEDSUPPLY Qty: 1 0RF Rx Instructions: As directed albuterol sulfate 2.5 mg /3 mL (0.083 %) solution for nebulization 2.5 mg inhalation QID PRN (Reason: shortness of breath or wheezing) Qty: 180 0RF amlodipine 10 mg tablet See Rx Instructions .ROUTE .COMPLEX Qty: 90 1RF Dose Instruction: TAKE ONE TABLET BY MOUTH DAILY Rx Instructions: TAKE ONE TABLET BY MOUTH DAILY venlafaxine 75 mg capsule,extended release 24hr 150 mg PO QAM Qty: 180 1RF topiramate 50 mg tablet See Rx Instructions .ROUTE .COMPLEX Qty: 180 0RF Dose Instruction: TAKE TWO TABLETS BY MOUTH EVERY MORNING Rx Instructions: TAKE TWO TABLETS BY MOUTH EVERY MORNING levothyroxine [Synthroid] 100 mcg tablet 100 mcg PO DAILY Qty: 90 1RF rosuvastatin 5 mg tablet 5 mg PO DAILY Qty: 90 0RF cyanocobalamin (vitamin B-12) [Vitamin B-12] 250 mcg Tablet 250 mcg PO DAILY cholecalciferol (vitamin D3) [Vitamin D3] 25 mcg (1,000 unit) Tablet 25 mcg PO DAILY melatonin 5 mg Tablet 5 mg PO BEDTIME ascorbic acid (vitamin C) [Vitamin C] 500 mg Tablet 250 mg PO DAILY albuterol sulfate 90 mcg/actuation HFA aerosol inhaler 1 inh inhalation Q6H PRN (Reason: shortness of breath or wheezing) Qty: 6.7 0RF Discharge Orders: Discharge ED (Routine); Ordered 04/03/25 Ordered By: Sriram Ibanez Referrals: Lachelle Lozoya FNP [Primary Care Provider, Family Practice] Patient Instructions: Patient Portal & Estiven Instructions Activity Restrictions/Additional Instructions: Discharge Instructions Your Diagnosis You were seen in the emergency department for constipation that has lasted two weeks. Testing showed that you have adynamic ileus, which means your intestines are moving more slowly than normal, causing constipation. The CT scan also showed possible mild inflammation in part of your colon (sigmoid diverticulitis), but this is mild and does not require antibiotics at this time. What to Do at Home Diet and Fluids - Drink plenty of water throughout the day (at least 6-8 glasses daily) to help soften your stools - Gradually increase fiber in your diet by eating more fruits, vegetables, whole grains, oat bran, and beans - If you choose to use a fiber supplement like psyllium (Metamucil), start with a small amount and increase slowly over several weeks to avoid bloating - Eat meals at regular times each day, as this helps your bowels work better Physical Activity - Try to walk or exercise regularly, as movement helps your intestines work better - Even short walks several times a day can help Bowel Habits - Try to use the bathroom at the same time each day, preferably 30 minutes after a meal when your intestines are naturally more active - Do not ignore the urge to have a bowel movement Medications for Constipation Start with these dwao-kbt-[id number] options: 1. Polyethylene glycol (MiraLAX): Take 17 grams (one capful) mixed in 8 ounces of liquid once or twice daily. You can adjust the dose based on your symptoms to aim for a soft, formed bowel movement every 1-2 days. 2. If polyethylene glycol alone is not enough, you may add: - Senna or bisacodyl (stimulant laxatives): Take as directed on the package, preferably 30 minutes after a meal - Magnesium-containing laxatives (like Milk of Magnesia): Take as directed on the package 3. If you have not had a bowel movement in several days, you may use: - Glycerin suppository: Insert one rectally as needed Important: Start with low doses and increase slowly. The goal is to have a comfortable bowel movement every 1-2 days, not diarrhea. Regarding Your Irritable Bowel Syndrome Since you have a history of alternating diarrhea and constipation, be aware that: - Once your constipation improves, you may need to reduce your laxative doses to avoid diarrhea - Keep track of which foods seem to trigger your symptoms and try to avoid them - Stress reduction and regular exercise may help with your symptoms Warning Signs - Call Your Doctor or Return to the Emergency Department If You Have: - Severe abdominal pain that is getting worse - Fever (temperature above 100.4?F or 38?C) - Vomiting that won't stop - Blood in your stool - No bowel movement for more than 3 days despite using laxatives - Severe bloating or swelling of your abdomen - Inability to pass gas Follow-Up Care - You have a referral placed with general surgery for reevaluation - Keep this appointment even if you are feeling better - If your constipation does not improve with these measures within one week, contact your primary care doctor Medications to Avoid - Avoid taking pain medications that can worsen constipation (like codeine or other opioids) unless absolutely necessary - Review all your medications with your doctor, as some can cause or worsen constipation Questions? If you have questions about these instructions or your condition, please call your doctor's office. 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
--- NOTE | 2025-04-03 13:47 | CT_ITS ---
WS: [id number] CT ABDOMEN PELVIS TECHNIQUE: Contrast-enhanced CT of the abdomen and pelvis with coronal and sagittal reformatted images. CLINICAL INFORMATION: difuse abd pain, distention COMPARISON: None. DLP: 774.[address] scans at [facility] use at least one of these dose optimization techniques: automated exposure control; mA and/or kV adjustment per patient size (includes targeted exams where dose is matched to clinical indication); or iterative reconstruction. FINDINGS: Hepatomegaly. Fatty liver. Cholecystectomy. Normal portal vein and splenic vein. Small esophageal hiatal hernia. Air-fluid level in the stomach. Fluid distended loops of small bowel. Air-fluid levels in the colon although no evidence of high-grade obstruction. Suspect adynamic ileus. Evidence of prior appendectomy. Sigmoid diverticulosis. Small amount of fluid about the sigmoid colon can be seen with diverticulitis. Recommend correlation with clinical symptoms. Slight surrounding induration. Normal pancreas. Adrenal glands are normal. Small bilateral renal cysts. RIGHT ANUPAM degrades images in the pelvis. Fat-containing umbilical hernia. CT/CT abdomen pelvis w con* [id number] IMPRESSION: 1. Sigmoid diverticulosis with a small amount of adjacent fluid and induration can be seen with early or mild diverticulitis. Recommend correlation with symp toms. 2. Air-fluid level in the stomach with small esophageal hiatal hernia. 3. Fluid-filled loops of small bowel and colon although no evidence of high-gr juliana obstruction. Adynamic ileus suspected. 4. Prior cholecystectomy and appendectomy. 5. No other acute findings.
[2025-04-03] MEDS: lactulose oral liq 20 gm/30 mL UDC 30 GM PO (13:49)
[2025-04-03] MEDS: magnesium citrate Btl 296 mL PO (13:49)
--- OUTSIDE RECORDS SUMMARY | 2025-04-03 13:50 | XMS_ITS | Encounter Summary ---
Author Organization [facility] Address [address] [place] [address] Care Team Providers Care Vacuum Cleaner Mechanic Name Role Phone Jovanny Laughlin MD Primary Care Provider Reason for Visit * Reason Comments Medication Refill Encounter Details Date Type Department Care Team (Late st Contact Info) Description 10/24/2018 Refill [facility] - Orthopedic [facility] [address] [place] [address] Thomas Bowman MD [address] [facility] [phone] Social History Tobacco Use Types Packs/Day Years Used Date Smoking Tobacco: Every Day Cigarettes 0.5 40 Smokeless Tobacco: Never Alcohol Use Standard Drinks/Week Comments Yes 0 (1 standard drink = 0.6 oz pur e alcohol) occasional Comments No Sex and Gender Information Value Date Recorded Sex Assigned at Not on file Legal Sex 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 Gender Identity Not on file Sexual Orientation Not on file Occupation Industry Job Start Date Job End Date Not on file Not on file Not on file Not on file documented as of this encounter Plan of Treatment Not on file documented as of this encounter Visit Diagnoses Not on filedocumented in this encounter Additional Health Concerns Assessment Noted Time PHQ-9 Depression Total Score: 1 06/22/19 19 12:00 PM PROFESSOR OF 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
--- OUTSIDE RECORDS SUMMARY | 2025-04-03 13:50 | XMS_ITS | Encounter Summary ---
Author Organization [facility] Address [address] [place] [address] Care Team Providers Care Director Business Name Role Phone Jovanny Laughlin MD Primary Care Provider Reason for Visit * Reason Comments Medication Refill Encounter Details Date Type Department Care Team (Late st Contact Info) Description 10/11/2018 Refill [facility] - Orthopedic [facility] [address] [place] [address] Thomas Bowman MD [address] [facility] [place] [phone] Social History Tobacco Use Types Packs/Day Years Used Date Smoking Tobacco: Every Day Cigarettes 0.5 40 Smokeless Tobacco: Never Alcohol Use Standard Drinks/Week Comments Yes 0 (1 standard drink = 0.6 oz pur e alcohol) occasional Comments No Sex and Gender Information Value Date Recorded Sex Assigned at Not on file 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
--- OUTSIDE RECORDS SUMMARY | 2025-04-03 13:50 | XMS_ITS | Encounter Summary ---
Author Organization [facility] Address [address] [place] [address] Care Team Providers Care Drug Room Operator Name Role Phone Jovanny Laughlin MD Primary Care Provider [phone] Reason for Visit * Reason Comments Medication Refill Encounter Details Date Type Department Care Team (Late st Contact Info) Description 10/24/2018 Refill [facility] - Orthopedic [facility] [address] [place] [address] Thomas Bowman MD [address] [facility] [place] [phone] Social History Tobacco Use Types Packs/Day Years Used Date Smoking Tobacco: Every Day Cigarettes 0.5 40 Smokeless Tobacco: Never Alcohol Use Standard Drinks/Week Comments Yes 0 (1 standard drink = 0.6 oz pur e alcohol) occasional Comments No Sex and Gender Information Value Date Recorded Sex Assigned at Not on file 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
--- OUTSIDE RECORDS SUMMARY | 2025-04-03 13:50 | XMS_ITS | Encounter Summary ---
Author Organization [facility] Address [address] [place] [address] Care Team Providers Care Senior Technical Manager Name Role Phone Jovanny Laughlin MD Primary Care Provider [phone] Reason for Visit * Reason Comments Medication Refill Encounter Details Date Type Department Care Team (Late st Contact Info) Description 08/05/2018 Refill [facility] - Orthopedic [facility] [address] [place] [address] Thomas Bowman MD [address] [facility] [place] [phone] Social History Tobacco Use Types Packs/Day Years Used Date Smoking Tobacco: Every Day Cigarettes 0.5 40 Smokeless Tobacco: Never Alcohol Use Standard Drinks/Week Comments Yes 0 (1 standard drink = 0.6 oz pur e alcohol) occasional Comments No Sex and Gender Information Value Date Recorded Sex Assigned at Not on file Legal 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
--- OUTSIDE RECORDS SUMMARY | 2025-04-03 13:50 | XMS_ITS | Encounter Summary ---
Author Organization [facility] Address [address] [place] [address] Care Team Providers Care Waterworks Pump Station Operator Name Role Phone Jovanny Laughlin MD Primary Care Provider [phone] Reason for Referral * Radiology Services (Routine) - Closed Specialty Diagnoses / Procedures Referred By César t Referred To Contact Orthopedic Surgery Diagnoses Hip pain, right Procedures US GUIDE NEEDLE PLACEMENT Thomas Bowman MD Phone: tel: fax: [place] [address] [place] [address] Phone: tel: fax: Referral ID Status Reason Start Date Expiration Date Visits Requested Visits Authorized [id number] Closed Ordering Department To Schedule 10/12/2018 11/12/2019 1 1 Encounter Details Date Type Department Care Team (Late st Contact Info) Description 10/12/2018 Ancillary Orders [address] [address] Thomas Bowman MD [address] [place] [address] Hip pain, right Social History Tobacco Use Types Packs/Day Years Used Date Smoking Tobacco: Every Day Cigarettes 0.5 40 Smokeless Tobacco: Never Alcohol Use Standard Drinks/Week Comments Yes 0 (1 standard drink = 0.6 oz pur e alcohol) occasional Comments No Sex and Gender Information Value Date Recorded Sex Assigned at Not on file 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 The area was then cleaned with Betadine in a sterile fashion and a 3.5 inch, 20-gauge needle was then inserted and 5 cc of lidocaine was injected as the needle was advanced under ultrasound guidance to the femoral neck/head. The syringe was then switched out and 1 mL of Depo-Medrol 80 mg and 6 cc of 1% lidocaine was injected into the space with good distention of the joint capsule visualized. The needle was withdrawn and an adhesive bandage was placed. The patient tolerated the procedure well and hemostasis was achieved. us Thomas Bowman MD US ORDERABLES Final Result documented in this encounter Visit Diagnoses Diagnosis Hip pain, right Pain in joint, pelvic region and thigh Hip pain, right Pain in joint, pelvic region and thigh documented in this encounter Additional Health Concerns Assessment Noted Time PHQ-9 Depression Total Score: 1 06/22/19 19 12:00 PM SAND CAR WORKER documented as of this encounter Care Teams Waterworks Pump Station Operator Relationship Specialty Start Date End Date Jovanny Laughlin MD [address] [address] PCP - General Family Practice 03/20/14 documented as of this encounter
--- OUTSIDE RECORDS SUMMARY | 2025-04-03 13:51 | XMS_ITS | Clinical Summary ---
Author Organization [facility] Address [address] [place] [address] Care Team Providers Care Natural History Collections Curator Name Role Phone Jovanny Laughlin MD Primary Care Provider [phone] Allergies Active Allergy Reactions Criticality Noted Date Comments Penicillins Swelling Low 03/29/2013 Sulfa (Sulfonamide Antibiotics) Swelling Low 03/29/2013 Teriflunomide Other (See Comments) 06/13/2019 Hair loss Medications MULTIVIT &MINERALS/FERROU S FUM (MULTI VITAMIN ORAL) Take by mouth. A ctive triamcinolone acetonide (KENALOG) 0.5 % OintmentIndicati ons:Eczema of lower leg Apply to affected area 2 times daily Right lower leg. 15 Gram 1 9 Active gabapentin (NEURONTIN) 300 mg capsule Take 1 Capsule (300 mg) by mouth 3 times daily. 90 Capsule 5 0 Active Additional Information Patient taking differently:300 mg OralDAILY AT BEDTIME, Reported on 02/21/2020 LEVOTHYROXINE 112 mcg tablet TAKE ONE TABLET EVERY DAY IN THE MORNING 90 Tablet 3 0 Active meloxicam (MOBIC) 15 mg tablet TAKE ONE TABLET ONCE A DAY FOR PAIN AND INFLAMMATION 90 Tablet 1 1 Active topiramate (TOPAMAX) 50 mg tablet TAKE ONE TABLET TWICE A DAY 180 Tablet 1 1 Active venlafaxine (EFFEXOR XR) 150 mg Extended Release 24 hour capsuleIndicatio ns:Moderate single current episode of major depressive disorder (CMS/HCC) TAKE ONE CAPSULE BY MOUTH EVERY DAY 90 Capsule 1 1 Active amLODIPine (NORVASC) 10 mg tabletIndication s:Benign hypertension TAKE ONE TABLET BY MOUTH DAILY 90 Tablet 1 1 Active aspirin (ECOTRIN EC) 81 mg Tablet, Delayed Release (E.C.) Take 81 mg by mouth daily. Active Active Problems Problem Noted Date Diagnosed Date Osteoarthritis of right hip 06/22/2018 Benign hypertension 06/16/2017 History of anemia 12/31/2016 Macrocytic anemia 10/07/2016 CKD (chronic kidney disease) stage 3, GFR 30-59 ml/min 10/06/2016 Renal insufficiency 04/07/2016 Hypernatremia 04/07/2016 Moderate single current epis ode of major depressive disorder 04/06/2016 Vitamin D deficiency 03/20/2015 Cigarette dependence 03/20/2015 Muscle cramps 01/16/2015 Weakness 01/16/2015 first dose Gilenya obersevation 08/04/2014 Fibromyalgia 04/17/2014 Iatrogenic hypothyroidism 04/17/2014 Hyperlipidemia 04/17/2014 DDD (degenerative disc disease), lumbar 01/05/20 14 Lumbar spondylosis 01/04/2014 Lumbar stenosis 01/04/2014 Lumbar facet joint pain 01/04/2014 MS (multiple sclerosis) 06/06/2013 Fatigue 06/06/2013 Resolved Problems Problem Noted Date Diagnosed Date Resolved Date Bradycardia, HR 33/min when was on Gilenya 08/05/2014 01/12/2019 Anxiety 10/24/2013 01/11/2019 Immunizations Immunization Administration Dates Next Due (PNEUMOVAX 23)(50 YRS UP) PN EUMOCOCCAL POLYSACCHARIDE (PPV23) 0.5 ML, IM 09/30/2020 (TDVAX)(7 YRS UP) TETANUS AN D DIPHTHERIA TOXOIDS, ADSORBED (2 LF OF TETANUS TOXOID AND 2 LF OF DIPHTHERIA TOXOID), 0.5ML (PF), IM 09/30/2000,08/17/1990 Hepatitis B Vaccine 09/27/1995,03/23/1995,1994 INFLUENZA VACCINE QUADRIVALE NT 3 YR UP PF IM 01/11/2019,04/06/2016,01/16/2015 Family History Medical History Relation Name Comments Cancer Father Brain Diabetes Father Heart Disease Father Hypertension Father Cancer Mother Uterine Diabetes Mother Hypertension Mother Breast Cancer Paternal Grandmother positi ve Breast Cancer Sister 2019 Colon Cancer Neg Hx Stroke Neg Hx Relation Name Status Comments Father Mother Paternal Grandmother Sister Social History Tobacco Use Types Packs/Day Years Used Date Smoking Tobacco: Every Day Cigarettes 0.5 40 Smokeless Tobacco: Never Tobacco Cessation:Ready to Q uit: Yes; Counseling Given: No Alcohol Use Standard Drinks/Week Comments Yes 0 (1 standard drink = 0.6 oz pur e alcohol) occasional Comments No Sex and Gender Information Value Date Recorded Sex Assigned at Not on file 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 Gender Identity Not on file Sexual Orientation Not on file Occupation Industry Job Start Date Job End Date Not on file Not on file Not on file Not on file Last Filed Vital Signs Vital Sign Reading Time Taken Comments Blood Pressure 145/81 10/15/2020 10:26 AM CDT Pulse 69 10/15/2020 10:26 AM CDT Temperature 37.3 C (99.1 F) 09/30/2020 9:50 AM CDT Respiratory Rate 14 09/30/2020 9:50 AM CDT Oxygen Saturation 95% 09/30/2020 9:50 AM CDT Inhaled Oxygen Concentration - - Weight 83.9 kg (185 lb) 10/15/2020 10:26 AM CDT Height 177.8 cm (5' 10 ) 10/15/2020 10:26 AM CDT Body Mass Index 26.54 10/15/2020 10:26 AM CDT Plan of Treatment Health Maintenance Due Date Last Done Comments Pre-Diabetes and Diabetes Screening 1955 DTAP/TDAP/TD VACCINES (1 - Tdap) 10/01/2000 10/01/19, 08/17/1990 FIT-DNA Q 3 years 10/19/2000 FIT/FOBT Q 1 year 10/19/2000 Flex Sig/CT Colonography Q 5 years 10/19/2000 RSV VACCINE (60+ or ) (1 - Risk 50-74 years 1-dose series) 10/19/2005 ZOSTER VACCINE (1 of 2) 10/19/2005 OSTEOPOROSIS SCREENING 10/19/2020 BREAST CANCER SCREENING 09/30/2021 10/01/19 21, 07/21/2018, 08/13/2015, Additional history exists PNEUMOCOCCAL VACCINE 50+ YEA RS (2 of 2 - PCV) 09/30/2021 09/30/2020 INFLUENZA VACCINE (#1) 2024 9, 07/11/2018, 04/06/2016, Additional history exists COLORECTAL SCREENING 07/27/2028 07/27/2018, 07/27/2018, 07/27/2018 Colorectal Cancer Screening 07/27/2028 Procedures Procedure Name Priority Date/Time Associated Diagnosis Comments MAMMO 3D STEPHANIE SCREEN BILAT W OR WO CAD Routine 09/30/2020 1:15 PM CDT Breast cancer screening by mammogram COLONOSCOPY REPORT 07/27/2018 9: 55 AM CDT from Last 3 Months or Most Recently Relevant to Health Maintenance Results * MAMMO SCRN BILAT 3D STEPHANIE W OR WO CAD (09/30/2020 1:15 PM CDT) Anatomical Region Laterality Modality Breast Bilateral Mammography Narrative 10/01/2020 2:46 PM CDT Bilateral Digital Mammogram with CAD and 3D Tomography Reason for Exam: Screening Comparison: Compared to: 07/21/2018 MAMMO SCRN BILAT 3D STEPHANIE W OR WO CAD, 08/13/2015 MAMMO DIGITAL DIAG UNI LEFT, and 07/25/2015 MAMMO DIGITAL SCREEN BILAT Technique: 3D MLO and CC digital tomosynthesis images were acquired and synthesized 2D images (C view) were generated. This digital mammogram was also analyzed by the Computer Aided Detection System CAD). Breast Composition: There are scattered areas of fibroglandular density. There are no suspicious masses, areas of architectural distortions, or microcalcifications to suggest malignancy. No significant new findings since the prior mammogram(s). us Jovanny Laughlin MD MAMMO ORDERABLES Final Result * COLONOSCOPY REPORT (07/27/2018 9:55 AM CDT) Narrative Procedure Note Isidoro Hyman, DO - 07/27/2018 9:[address] [facility] Patient Name: Melodie Clancy Procedure Date: 07/27/2018 Date of : 1955 Admit Type: Outpatient Age: 62 Attending MD: Isidoro Hyman MD Procedure: Colonoscopy Indications: Screening for colorectal malignant neoplasm Providers: Isidoro Hyman MD Referring MD: Jovanny Laughlin MD Medicines: Fentanyl 125 micrograms IV, Midazolam 7 mg IV Complications: No immediate complications. Procedure: After I obtained informed consent, the scope was passed under direct vision. Throughout the procedure, the patient's blood pressure, pulse, and oxygen saturations were monitored continuously. The Colonoscope was introduced through the anus and advanced to the cecum, identified by appendiceal orifice and ileocecal valve. The colonoscopy was performed without difficulty. The patient tolerated the procedure well. The quality of the bowel preparation was good. Estimated Blood Loss: Estimated blood loss: none. Findings: A few small and large-mouthed diverticula were found in the sigmoid colon. The terminal ileum appeared normal. Impression: - Diverticulosis in the sigmoid colon. - The examined portion of the ileum was normal. - No specimens collected. Recommendation: - Patient has a contact number available for emergencies. The signs and symptoms of potential delayed complications were discussed with the patient. Return to normal activities tomorrow. Written discharge instructions were provided to the patient. - Resume previous diet. - Continue present medications. - Repeat colonoscopy in 10 years for surveillance. Isidoro Hyman MD 07/27/2018 9:55:37 AM Number of Addenda: 0 Note Initiated On: 07/27/2018 9:29 AM Scope Withdrawal Time 0 hours 6 minutes 26 seconds Scope In: 9:42:05 AM Scope Out: 9:52:46 AM [address] [place] Isidoro Hyman DO GI PROCEDURE ORDERABLES Final Result from Last 3 Months or Most Recently Relevant to Health Maintenance Advance Directives For more information, please contact: [phone] * Full Code (Latest Code Status on File) Date Activated Date Inactivated Comments 07/27/2018 8:53 AM 07/27/2018 1:34 PM * Full Code Date Activated Date Inactivated Comments 08/04/2014 10:11 AM 08/05/2014 1:12 PM Care Teams Natural History Collections Curator Relationship Specialty Start Date End Date Jovanny Laughlin MD [address] [phone] PCP - General Family Practice 03/20/14
--- OUTSIDE RECORDS SUMMARY | 2025-04-03 13:51 | XMS_ITS | Encounter Summary ---
Author Organization [facility] Address [address] [place] [address] Care Team Providers Care Customs Inspector Name Role Phone Jovanny Laughlin MD Primary Care Provider Reason for Referral * Outpatient Services (Routine) - Closed Specialty Diagnoses / Procedures Referred By César t Referred To Contact Diagnoses Inconclusive mammography Procedures MAMMO DIGITAL DIAG UNI LEFT Jovanny Laughlin MD [address] [facility] [address] [place] [address] Phone: tel: fax: [facility] Pre-Registration [place] CALL TO MAKE APPOINTMENT ONLY [address] [place] [address] Phone: tel: fax: Referral ID Status Reason Start Date Expiration Date Visits Re quested Visits Authorized [id number] Closed 08/05/2015 09/04/2016 1 1 Encounter Details Date Type Department Care Team (Latest Contact Info) Description 08/05/2015 Ancillary Orders [facility] [address] [facility] [address] [place] [address] Jovanny Laughlin MD [address] [facility] [address] [place] [address] Inconclusive mammography (Primary Dx) Social History Tobacco Use Types Packs/Day Years Used Date Smoking Tobacco: Every Day Cigarettes 0.5 40 Smokeless Tobacco: Never Alcohol Use Standard Drinks/Week Comments No 0 (1 standard drink = 0.6 oz pur e alcohol) occasional Comments No Sex and Gender Information Value Date Recorded Sex Assigned at Not on file 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 No persistent or suspicious abnormality is detected. I believe the original finding represented overlapping parenchymal structures. Patient is denying any complaints. Routine yearly screening exams are recommended. Patient received the result and recommendation letter. [id number] Narrative 08/13/2015 2:49 PM CDT REASON FOR EXAM: Patient is returning for further evaluation on the left as requested following screening study of 07/25/2015. IMAGING PERFORMED: Left lateral projection and spot compression view in the CC projection. COMPARISON(S): Only previous study of 11/15/2009. TISSUE COMPOSITION: Average, scattered fibroglandular densities. FAMILY HX.-BREAST Ca: Paternal grandmother diagnosed at age 40. MAMMOGRAPHIC FINDINGS: LEFT BREAST: The patient was suspected of having an interval change regarding nodular tissue in the lateral left breast best identified in the CC projection. The spot compression view obtained today disperses the tissue nicely and persistent or suspicious abnormality is not identified. When comparison is made with the prior studies, I do not feel that there has been any significant or suspicious interval change. us Jovanny Laughlin MD MAMMO ORDERABLES Final Result documented in this encounter Visit Diagnoses Diagnosis Inconclusive mammography- Primary Inconclusive mammogram Inconclusive mammography Inconclusive mammogram documented in this encounter Care Teams Customs Inspector Relationship Specialty Start Date End Date Jovanny Laughlin MD [address] [id number] PCP - General Family Practice 03/20/14 documented as of this encounter
--- OUTSIDE RECORDS SUMMARY | 2025-04-03 13:51 | XMS_ITS | Encounter Summary ---
Author Organization [facility] Address [address] [place] [address] Care Team Providers Care Receivable Clerk Name Role Phone Jovanny Laughlin MD Primary Care Provider [phone] Reason for Referral * Outpatient Services (Routine) - Closed Specialty Diagnoses / Procedures Referred By César warner Referred To Contact Diagnoses Visit for screening mammogram Procedures MAMMO DIGITAL SCREEN BILAT Jovanny Laughlin MD [address] [address] Phone: tel: fax: Referral ID Status Reason Start Date Expiration Date Visits Re quested Visits Authorized [id number] Closed 07/16/2015 08/15/2016 1 1 Encounter Details Date Type Department Care Team (Latest Contact Info) Description 07/16/2015 Ancillary Orders [facility] Pre-Registration [place] CALL TO MAKE APPOINTMENT ONLY [address] [place] [address] Jovanny Laughlin MD [address] [address] Visit for screening mammogram (Primary Dx) Social History Tobacco Use Types Packs/Day Years Used Date Smoking Tobacco: Every Day Cigarettes 0.5 40 Smokeless Tobacco: Never Alcohol Use Standard Drinks/Week Comments No 0 (1 standard drink = 0.6 oz pur e alcohol) occasional Comments No Sex and Gender Information Value Date Recorded Sex Assigned at Not on file 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 Comparison is now made with apparently the most recent prior outside exam dated 11/15/2009. The nodular tissue on the left appears stable on the MLO view but appears more prominent on the craniocaudal view and so I would recommend further evaluation. Conclusion/Impression: I would recommend the patient return for left craniocaudal spot compression view and left medial to lateral view. [id number] Impressions 07/26/2015 11:00 AM CDT IMPRESSION: Nodularity laterally on the left will require comparison with previous mammograms. Unless stability over time can be demonstrated upon that comparison, additional evaluation will be necessary. [id number] Narrative 07/26/2015 11:00 AM CDT Bilateral Digital Screening Mammogram: Screening mammogram on this 59-year-old female is presented. We do not have previous for comparison, but are attempting to obtain them. Breast tissue is of average density. Right side appears unremarkable. A few scattered benign-appearing calcifications bilaterally are noted. There is some nodularity laterally on the left which will require comparison with previous mammograms. No other area of abnormality is seen. This digital mammogram was also analyzed by the Computer Aided Detection System (CAD), [employer], Version 8.3. Procedure Note Hang Graham MD / Riana Ponce MD - 08/02/2015 Bilateral Digital Screening Mammogram: Screening mammogram on this 59-year-old female is presented. We do not have previous for comparison, but are attempting to obtain them. Breast tissue is of average density. Right side appears unremarkable. A few scattered benign-appearing calcifications bilaterally are noted. There is some nodularity laterally on the left which will require comparison with previous mammograms. No other area of abnormality is seen. This digital mammogram was also analyzed by the Computer Aided Detection System (CAD), [employer], Version 8.3. IMPRESSION IMPRESSION: Nodularity laterally on the left will require comparison with previous mammograms. Unless stability over time can be demonstrated upon that comparison, additional evaluation will be necessary. [id number] us Jovanny Laughlin MD MAMMO ORDERABLES Edited Resul t - Final documented in this encounter Visit Diagnoses Diagnosis Visit for screening mammogram- Primary Other screening mammogram Visit for screening mammogram Other screening mammogram documented in this encounter Care Teams Receivable Clerk Relationship Specialty Start Date End Date Jovanny Laughlin MD [address] [phone] PCP - General Family Practice 03/20/14 documented as of this encounter
--- OUTSIDE RECORDS SUMMARY | 2025-04-03 13:51 | XMS_ITS | Encounter Summary ---
Author Organization [facility] Address [address] [place] [address] Care Team Providers Care Library Technology Instructor Name Role Phone Jovanny Laughlin MD Primary Care Provider [phone] Reason for Referral * Radiology Services (Routine) - Closed Specialty Diagnoses / Procedures Referred By César warner Referred To Contact Diagnoses Hip pain, right Procedures US GUIDE NEEDLE PLACEMENT Thomas Bowman MD Phone: tel: fax: Referral ID Status Reason Start Date Expiration Date Visits Re quested Visits Authorized [id number] Closed 07/11/2018 08/11/2019 1 1 Encounter Details Date Type Department Care Team (Late st Contact Info) Description 07/11/2018 Ancillary Orders [facility] Orthopedics - [facility]opedic [facility] [address] [place] [address] Thomas Bowman MD [address] [facility] [place] [address] Hip pain, right Social History Tobacco Use Types Packs/Day Years Used Date Smoking Tobacco: Every Day Cigarettes 0.5 40 Smokeless Tobacco: Never Alcohol Use Standard Drinks/Week Comments No 0 (1 standard drink = 0.6 oz pur e alcohol) occasional Comments No Sex and Gender Information Value Date Recorded Sex Assigned at Not on file 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 Gender Identity Not on file Sexual Orientation Not on file Occupation Industry Job Start Date Job End Date Not on file Not on file Not on file Not on file documented as of this encounter Plan of Treatment Not on file documented as of this encounter Results * US GUIDE NEEDLE PLACEMENT (07/11/2018 9:00 AM CDT) Anatomical Region Laterality Modality Ultrasound Narrative 07/11/2018 1:23 PM CDT The anatomy was visualized under [...] Total Score: 1 06/22/19 19 12:00 PM RESEARCH HYDROLOGIST documented as of this encounter Care Teams Library Technology Instructor Relationship Specialty Start Date End Date Jovanny Laughlin MD [address] [address] PCP - General Family Practice 03/20/14 documented as of this encounter
--- OUTSIDE RECORDS SUMMARY | 2025-04-03 13:51 | XMS_ITS | Encounter Summary ---
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) Social History Tobacco Use Types Packs/Day Years Used Date Smoking Tobacco: Never Assessed Comments Unknown Sex and Gender Information Value Date Recorded Sex Assigned at Not on file 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
--- OUTSIDE RECORDS SUMMARY | 2025-04-03 13:51 | XMS_ITS | Encounter Summary ---
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) Social History Tobacco Use Types Packs/Day Years Used Date Smoking Tobacco: Never Assessed Comments Unknown Sex and Gender Information Value Date Recorded Sex Assigned at Not on file Legal Sex Female 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
--- OUTSIDE RECORDS SUMMARY | 2025-04-03 13:51 | XMS_ITS | Patient Health Record ---
Author Organization [facility] Address [address] [place] [address] Care Team Providers Care Granite Setter Name Role Phone Brittnee Duran Unavailable [phone] Allergies No Known Allergies Reason For Referral No Information Medications Medication SIG (Take, Route, Frequency, Duration) Notes Start Date End Date Status Topiramate 50 MG Tablet 1 tablet Orally Twice a day Active Zithromax 250 MG Tablet Z pack as direct ed Orally 03/25/2022 Active Venlafaxine HCl ER 150 MG Capsule Extended Release 24 Hour 1 capsule with food Orally Once a day Active Vitamin D 50 MCG (1999 UT) Tablet 1 tablet Orally Once a day Active Vitamin C 500 MG Tablet Chewable 1 tablet Orally Once a day Active amLODIPine Besylate 10 MG Tablet 1 tablet Orally Once a day Active Albuterol Sulfate HFA 108 (90 Base) MCG/ACT Aerosol Solution 2 puff as needed Inhalation every 4 - 6 hrs 01/29/2022 Active Red Yeast Rice 600 MG Tablet as directed Orally Active guaiFENesin-Codeine 100-10 MG/5ML Solution 10 mL as needed Orally every 4 -6 hrs 01/29/2022 Active Levothyroxine Sodium 112 MCG Tablet 1 tablet in the morning on an empty stomach Orally Once a day Active Social History Tobacco Use: Social History Observation Description Date Details (start date - stop date) Current Smoker NA - NA Social History Depression Screening Social Info Question Answer Notes PHQ-9 Little interest or pleasure in doing thin gs Not at all Feeling down, depressed, or hopeless Not at all Trouble falling or staying asleep, or sleeping t oo much Not at all Feeling tired or having little energy Not at all Poor appetite or overeating Not at all Feeling bad about yourself, or that you are a failure, or have let yourself or your family down Not at all Trouble concentrating on thi ngs, such as reading the newspaper or watching television Not at all Moving or speaking so slowly that other people could have noticed. Or the opposite ? being so fidgety or restless that you have been moving around a lot more than usual Not at all Thoughts that you would be b saeed off , or of hurting yourself in some way Not at all Total Score 0 Drugs/Alcohol: Social Info Question Answer Notes Alcohol Screen (Audit-C) Did you have a drink containing alcohol in the past year? No Points 0 Interpretation Negative Tobacco Use: Social Info Question Answer Notes xTobacco Use/Smoking Are you a current smoker How often do you smoke cigarettes? every day How many cigarettes a day do you smoke? 6-10 Section Notes: 01/29/22 PHQ9 01/29/22 PHQ9 Problems Problem Type SNOMED Code ICD Code Onset Dates Problem Status W/U Status Risk Notes Problem Tobacco user (156079321) Nicotine dependence, cigarettes, uncomplicated (F17.210) Active confirmed Plan Of Treatment No Information Insurance Providers Payer Name Payer Address Payer Phone Subscriber Number Group Number Insured Name Patient Relationship to Insured Coverage Start Date Coverage End Date MD Medicare [address] [place] [phone] [id number] Melodie Clnacy Self - patient is the insured Medications Administered Medication Instructions Date of Administration Dosage Notes DEPO-Medrol 03/25/2022 40 mg [address]-17 dexAMETHasone 01/29/2022 8 mg [id number] dexAMETHasone 03/25/2022 4 mg [id number]- 30 Ketorolac Tromethamine 03/25/2022 60 mg [id number] Rocephin 03/25/2022 1 g [id number] Medical (General) History Medical History History ICD Code hypertension multiple sclerosis Hypothyroidism Surgical History Surgery Date(Month/Year) tubal ligation cystocele repair
--- OUTSIDE RECORDS SUMMARY | 2025-04-03 13:51 | XMS_ITS | Encounter Summary ---
Author Organization [facility] Address [address] [place] [address] Care Team Providers Care Instructor Ground Services Name Role Phone Jovanny Laughlin MD Primary Care Provider [phone] Encounter Details Date Type Department Care Team (Latest Contact Info) Description 03/28/1999 Outpatient Historical [facility] Haritha [address] [place] [address] Smitha Velázquez MD [address] [place] [address] Nontoxic uninodular goiter (Primary Dx) Social History Tobacco Use Types Packs/Day Years Used Date Smoking Tobacco: Never Assessed Comments Unknown Sex and Gender Information Value Date Recorded Sex Assigned at Not on file Legal 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
--- OUTSIDE RECORDS SUMMARY | 2025-04-03 13:51 | XMS_ITS | Clinical Summary ---
Author Organization [facility] Address [address] [place] [address] Care Team Providers Care Furniture Upholsterer Apprentice Name Role Phone Unavailable Primary Care Provider Unavailabl e Allergies Active Allergy Reactions Criticality Noted Date Comments Penicillins Swelling Low 03/29/2013 Sulfa (Sulfonamide Antibiotics) Swelling Low 03/29/2013 Teriflunomide Other (See Comments) 06/13/2019 Hair loss Medications triamcinolone acetonide (KENALOG) 0.5 % OintmentIndicati ons:Eczema of lower leg Apply to affected area 2 times daily Right lower leg. 15 Gram 1 9 Active Additional Information Patient not taking.Reported on 12/19/2024 gabapentin (NEURONTIN) 300 mg capsule Take 1 Capsule (300 mg) by mouth 3 times daily. 90 Capsule 5 0 Active Additional Information Patient not taking.Reported on 12/19/2024 aspirin (ECOTRIN EC) 81 mg Tablet, Delayed Release (E.C.) Take 81 mg by mouth daily. 1 Active tiotropium (SPIRIVA) 18 mcg capsuleIndicatio ns:Chronic obstructive pulmonary disease, unspecified COPD type (CMS/HCC) Take 1 Capsule (18 mcg) by inhalation daily. 30 Capsule 5 1 Active Additional Information Patient not taking.Reported on 12/19/2024 Red Yeast Rice Extract 600 mg Capsule Take 1,200 mg by mouth 2 times daily. 2 Active Additional Information Patient not taking.Reported on 12/19/2024 LEVOTHYROXINE 112 mcg tablet TAKE ONE TABLET EVERY DAY IN THE MORNING 90 Tablet 3 2 Active venlafaxine (EFFEXOR XR) 150 mg Extended Release 24 hour capsuleIndicatio ns:Moderate single current episode of major depressive disorder (CMS/HCC) TAKE ONE CAPSULE BY MOUTH EVERY DAY 90 Capsule 3 2 Active topiramate (TOPAMAX) 50 mg tablet TAKE ONE TABLET BY MOUTH TWICE A DAY 180 Tablet 3 2 Active meloxicam (MOBIC) 15 mg tablet TAKE ONE TABLET BY MOUTH ONCE A DAY FOR PAIN AND INFLAMMATION 90 Tablet 1 2 Active Additional Information Patient not taking.Reported on 12/19/2024 amLODIPine (NORVASC) 10 mg tabletIndication s:Benign hypertension take one tablet by mouth daily 30 Tablet 4 Active Additional Information Patient not taking.Reported on 12/19/2024 Active Problems Problem Noted Date Diagnosed Date Chronic obstructive pulmonary disease 12/09/2020 Smoking greater than 20 pack years 12/09/2020 Osteoarthritis of right hip 06/22/2018 Benign hypertension 06/16/2017 History of anemia 12/31/2016 Macrocytic anemia 10/07/2016 CKD (chronic kidney disease) stage 3, GFR 30-59 ml/min 10/06/2016 Renal insufficiency 04/07/2016 Hypernatremia 04/07/2016 Moderate single current epis ode of major depressive disorder 04/06/2016 Vitamin D deficiency 03/20/2015 Cigarette dependence 03/20/2015 Weakness 01/16/2015 Muscle cramps 01/16/2015 first dose Gilenya obersevation 08/04/2014 Fibromyalgia 04/17/2014 Iatrogenic hypothyroidism 04/17/2014 Hyperlipidemia 04/17/2014 Lumbar spondylosis 01/04/2014 Lumbar stenosis 01/04/2014 DDD (degenerative disc disease), lumbar 01/05/20 14 Lumbar facet joint pain 01/04/2014 MS (multiple sclerosis) 06/06/2013 Fatigue 06/06/2013 Resolved Problems Problem Noted Date Diagnosed Date Resolved Date Bradycardia, HR 33/min when was on Gilenya 08/05/2014 01/12/2019 Anxiety 10/24/2013 01/11/2019 Encounters Date Type Department Care Team Description 02/27/2025 External Device Data [facility] ABSTRACTION Provider, Abstract 02/20/2025 External Device Data [facility] ABSTRACTION Provider, Abstract from Last 3 Months Immunizations Immunization Administration Dates Next Due (PNEUMOVAX [...] Paternal Grandmother positi ve Breast Cancer Sister 2018 Colon Cancer Neg Hx Stroke Neg Hx Relation Name Status Comments Father Mother Paternal Grandmother Sister Social History Tobacco Use Types Packs/Day Years Used Date Smoking Tobacco: Every Day Cigarettes Smokeless Tobacco: Never Tobacco Cessation:Ready to Q uit: No; Counseling Given: No Alcohol Use Standard Drinks/Week Comments Yes 0 (1 standard drink = 0.6 oz pur e alcohol) Financial Resource Strain Answer Date R ecorded How hard is it for you to pa y for the very basics like food, housing, medical care, and heating? Somewhat hard 10/01/2021 Food Insecurity Answer Date Recorded In the past 12 months, have you worried that your food would run out before you had money to buy more? Never true 10/01/2021 In the past 12 months, did y ou run out of food and didn't have money to buy more? Never true 10/01/2021 Transportation Needs Answer Date Record ed In the past 12 months, has l ack of transportation kept you from medical appointments or from getting medications? No 10/01/2021 Lack of Transportation (Non-Medical) Not on file 10/01/2021 Comments No Sex and Gender Information Value Date Recorded Sex Assigned at Not on file Legal Sex Female 10:04 AM SOCIAL PROFESSIONALS Gender Identity Not on file Sexual Orientation Not on file Last Filed Vital Signs Vital Sign Reading Time Taken Comments Blood Pressure 132/78 12/19/2024 2:47 PM CDT Pulse 65 12/19/2024 2:47 PM CDT Temperature 36.7 C (98 F) 10/01/2021 10:21 AM CDT Respiratory Rate 12 12/09/2020 10:20 AM CDT Oxygen Saturation 95% 10/01/2021 10:21 AM CDT Inhaled Oxygen Concentration - - Weight 80.3 kg (177 lb) 12/19/2024 2:47 PM CDT Height 177.8 cm (5' 10 ) 12/19/2024 2:47 PM CDT Body Mass Index 25.4 12/19/2024 2:47 PM CDT Plan of Treatment Upcoming Encounters Date Type Department Care Team (Late st Contact Info) Description 12/19/2025 2:30 PM CDT Appointment [facility] [address] [place] [phone] Vishnu Escoto MD [address] [place] [address] 12/25/2025 1:00 PM CDT Office Visit [facility] [address] [place] [address] Vishnu Escoto MD [address] [place] [address] Health Maintenance Due Date Last Done Comments Pre-Diabetes and Diabetes Screening 1955 FIT-DNA Q 3 years 10/19/2000 FIT/FOBT Q 1 year 10/19/2000 Flex Sig/CT Colonography Q 5 years 10/19/2000 RSV VACCINE (60+ or ) (1 - Risk 50-74 years 1-dose series) 10/19/2005 ZOSTER VACCINE (1 of 2) 10/19/2005 DTAP/TDAP/TD VACCINES (1 - Tdap) 05/20/2008 05/19/2008, 09/30/2000, 08/17/1990 OSTEOPOROSIS SCREENING 10/19/2020 PNEUMOCOCCAL VACCINE 50+ YEA RS (2 of 2 - PCV) 09/30/2021 09/30/2020 BREAST CANCER SCREENING 02/09/2023 02/10/20, 02/09/2022, 01/28/2022, Additional history exists INFLUENZA VACCINE (#1) 2024 , 01/11/2019, 07/11/2018, Additional history exists COVID-19 Vaccine (2024-2 6 season) 2024 03/16/2021, 06/14/2020, 05/17/2020 COLORECTAL SCREENING 07/27/2028 07/27/2018, 07/27/2018, 07/27/2018, Additional history exists Colorectal Cancer Screening 07/27/2028 Procedures Procedure Name Priority Date/Time Associated Diagnosis Comments MAMMO 3D STEPHANIE SCREEN BILAT W OR WO CAD Routine 01/28/2022 11:18 AM CDT Encounter for screening mammogram for malignant neoplasm of breast COLONOSCOPY REPORT Routine 07/27/2018 9: 55 AM CDT from Last 3 Months or Most Recently Relevant to Health Maintenance Results * MAMMO SCRN BILAT 3D STEPHANIE W OR WO CAD (01/28/2022 11:18 AM CDT) Anatomical Region Laterality Modality Breast Bilateral Mammography Narrative 02/09/2022 10:21 PM CDT Bilateral Digital Mammogram with CAD and 3D Tomography Reason for Exam: Screening Comparison: Compared to: 09/30/2020 MAMMO SCRN BILAT 3D STEPHANIE W OR WO CAD, 07/21/2018 MAMMO SCRN BILAT 3D STEPHANIE W OR WO CAD, and 07/25/2015 MAMMO SCREEN BILAT W OR WO CAD Technique: 3D MLO and CC digital tomosynthesis images were acquired and synthesized 2D images (C view) were generated. This digital mammogram was also analyzed by the Computer Aided Detection System CAD). Breast Composition: There are scattered areas of fibroglandular density. There are no suspicious masses, areas of architectural distortions, or microcalcifications to suggest malignancy. No significant new findings since the prior mammogram(s). Impression: Negative screening mammogram. Recommendation: Routine annual follow-up Overall Assessment: Birads Category 2: Benign us Jovanny Laughlin MD MAMMO ORDERABLES Final Result * COLONOSCOPY REPORT (07/27/2018 9:55 AM CDT) 07/27/2018 9:55 AM CDT us Isidoro Hyman DO GI PROCEDURE ORDERABLES Final Result [facility] from Last 3 Months or Most Recently Relevant to Health Maintenance Insurance MEDICARE PART A AND B [facility] [id number]
--- OUTSIDE RECORDS SUMMARY | 2025-04-03 13:51 | XMS_ITS | Encounter Summary ---
Author Organization [facility] Address [address] [place] [address] Care Team Providers Care Social Science Instructor Name Role Phone Jovanny Laughlin MD Primary Care Provider [phone] Encounter Details Date Type Department Care Team (Latest Contact Info) Description 05/27/1999 Outpatient Historical [facility] Endocrinology-[facility] [address] [place] [address] Smitha Velázquez MD [address] [place], [place] [phone] Other postablative hypothyroidism (Primary Dx) Social History Tobacco Use Types Packs/Day Years Used Date Smoking Tobacco: Never Assessed Comments Unknown Sex and Gender Information Value Date Recorded Sex Assigned at Not on file Legal Sex Female 4: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
--- OUTSIDE RECORDS SUMMARY | 2025-04-03 13:51 | XMS_ITS | Encounter Summary ---
Author Organization [facility] Address [address] [place] [address] Care Team Providers Care Machine Clothing Worker Name Role Phone Jovanny Laughlin MD Primary Care Provider [phone] Encounter Details Date Type Department Care Team (Late st Contact Info) Description 03/24/2004 Emergency [facility] [address] 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
[2025-04-03 14:02] VITALS: BP 146/82; PULSE 92; O2SAT 96
[2025-04-03 14:06] LABS: Hematocrit 36.1 % (36-47); Hemoglobin 12.10 g/dL (11.27-16.99); Mean Corpuscular HGB Conc 33.5 g/dL (30-55); Mean Corpuscular Hemoglobin 36.1 pg (27-33); Mean Corpuscular Volume 107.8 fl (85-98); Nucleated Red Blood Cells % 0.2 %; Platelet Count 315 10^3/cmm (157-399); Red Blood Count 3.35 10^6/uL (3.85-5.65); White Blood Count 8.80 10^3/uL (3.29-11.43)
--- NOTE | 2025-04-03 14:10 | PC.NURSE ---
This RN called pharmacy as pyxis is out of fleet enema.
[2025-04-03] MEDS: iohexol 350 mg/mL 500 mL Btl (per mL) IV (14:17)
[2025-04-03 14:29] LABS: Alanine Aminotransferase 27 U/L (0-33); Albumin Level 4.4 g/dL (3.5-5.2); Alkaline Phosphatase 81 U/L (35-105); Anion Gap 13.8 (5-19); Aspartate Amino Transferase 22 U/L (0-32); Blood Urea Nitrogen 10 mg/dL (8-23); Calcium 8.5 mg/dL (8.5-10.5); Carbon Dioxide 25 mmol/L (22-29); Chloride 105 mmol/L (98-107); Globulin 1.9 g/dL (1.3-4.6); Glucose 125 mg/dL (65-115); Lipase 16 U/L (13-60); Osmolality Calculated 291 mOsm/kg (285-295); Potassium 3.8 mmol/L (3.5-5.1); Sodium 140 mmol/L (136-145); Total Protein 6.3 g/dL (6.6-8.7)
[2025-04-03 14:33] VITALS: BP 142/82; PULSE 83; O2SAT 95
[2025-04-03 15:36] LABS: Glucose Urine UA Negative (Normal); Nitrate Urine Negative (Negative)
[2025-04-03 15:41] LABS: Add Urine Microscopic? YES
[2025-04-03 15:44] LABS: Specific Gravity, Urine >= 1.099 (1.005-1.030)
[2025-04-03 15:49] VITALS: BP 140/74; PULSE 72; O2SAT 95
== END 2025-04-03 15:50 | disposition home or self-care (01) ==
PROVIDERS: Emergency Provider Physician Assistant; PCP Nurse Practitioner Family
DX: K56.0 Paralytic ileus (principal)
CPT/HCPCS: 74018; 74177; 80053; 81001; 83690; 85025; 99285; J7040; J9999